=== PATIENT | male | born 1945 | race Caucasian/White ===

== ENCOUNTER 2017-12-24 10:00 | Outpatient (RCR) | payer MEDICARE, OTHER, SELFPAY ==
--- NOTE | 2017-12-11 16:01 | HP.PTEVAL ---
Patient's Visit Information RAY ALONSO is a 72 year old M referred to Physical Therapy by Shyam Rocha with a diagnosis of LBP. Date of Evaluation: 12/11/17 Physical Therapist: Yan Garduno PT, - Visit Plan Frequency: 2x /Week Duration: 4 Weeks Plan: Seated forward flex, core stab ex's in nuetral, LE strengthening, and HEP - Subjective Subjective: Pt reports a chronic Hx of LBP consisting of having a surgery to LB 20 years ago. Pt reports 4 weeks ago he was mowing on his hill when his LB started to hurt again. Pt reports he went to the chiropractor, which helped a litttle until he had his last adjustment, which resulted in severe pain and R LE radiculopathy. R LE radiculopathy extends to his R knee on the anterior region. No pain with sitting. Sleep diff secondary to the pain. Pt notes increased pain and radiculopathy with standing and walking. Pt reports he also feels it if he is showiering and raises his arms up in the air. 1/10 at rest, 8/10 pain at worst - Pain LBP Pain Intensity (Out of 10): 1 Pain Intensity Range: 8 - Objective Neuro: B LE Sensation is WNL to light touch. B patellar tendon reflex= 1/3. MMT: R hip flexion, knee flexion, and knee ext= 4-/5. All others are 5/5 throughout. ROM: Pt is severely limited with L/S extension at this time. No limitations with flexion. Repeated movements: SKTC/DKTC 10 sec holds x 3 ea, better - Goals Goal 1:: Decrease LBP x 50 percent to aid withsleep Goal Time Frame: 2-4 Weeks Goal 2:: Decrease the frequency and intensity of R LE radiculopathy to aid with ambulation Goal Time Frame: 2-4 Weeks Goal 3:: I with HEP Goal Time Frame: 2-4 Weeks - Rehabilitation Potential Physical Therapy Diagnosis: Pt has LBP, R LE radiculopathy, and sleep diff secondary to pain. Rehabilitation Potential: Good - Anticipated Interventions Patient/Client Instruction: Educate patient on: Condition, Plan of Care For the Purpose of:: To improve self management Therapeutic Exercise to Include: Strength training, Body mechanics, Postural training, Flexibilty training, Dynamic Lumbar Stabilization For the Purpose of:: To decrease pain, To increase ROM, To improve muscle performance and motor function IF ES: Yes For the Purpose of:: To decrease pain Thank you for the opportunity to evaluate your patient. For Medicare and Medicare HMO plans, please review the plan of care and approve it. It will need to be FAXED BACK to us at [phone] for Medicare purposes. Please let me know if there are questions or concerns regarding this plan of care. Physician Signature: Date:
--- NOTE | 2017-12-30 09:56 | HP.PT.NRP ---
HP - Discharge Summary (1) - Patient Information RAY ALONSO was seen in my office for initial evaluation on 12/11/17. The following Plan of Care was established for this patient: Initial Frequency: 2x /Week Initial Duration: 4 Weeks - Anticipated Interventions Patient/Client Instruction: Educate patient on: Condition, Plan of Care For the Purpose of:: To improve self management Therapeutic Exercise to Include: Strength training, Body mechanics, Postural training, Flexibilty training, Dynamic Lumbar Stabilization For the Purpose of:: To decrease pain, To increase ROM, To improve muscle performance and motor function IF ES: Yes For the Purpose of:: To decrease pain This patient was last seen in our office . Pertinent comments regarding their Physical therapy will appear below: Pt returns today noting he is painfree and has been for over 2 days now. Pt reports he is fixed and does not need any more PT at this time. Pt is I with HEP and has achieved goals. At this point I will be discontinuing this patient from physical therapy. I would be happy to see this patient again in the future if found appropriate by the physician. Thank you! Yan Garduno, PT,
== END 2017-12-24 19:00 | disposition home or self-care (01) ==
LOC: PT 10:00
PROVIDERS: Family Provider Family Medicine; PCP Family Medicine; Visit Provider Orthopaedic Surgery Orthopaedic Surgery of the Spine
DX: M51.14 Intervertebral disc disorders with radiculopathy, thoracic region (principal); M48.062 Spinal stenosis, lumbar region with neurogenic claudication
CPT/HCPCS: 97110; 97162

== ENCOUNTER 2018-02-04 10:42 | Emergency (ER) | payer MEDICARE, OTHER, SELFPAY ==
[2018-02-04 10:43] VITALS: BP 139/69; PULSE 84; RESP 18; TEMP 36.3; O2SAT 96; BMI 24.3
--- NOTE | 2018-02-04 10:51 | EKG12_ITS ---
Test Reason : CHEST PAIN Blood Pressure : / mmHG Vent. Rate : 082 BPM Atrial Rate : 082 BPM P-R Int : 166 ms QRS Dur : 128 ms QT Int : 376 ms P-R-T Axes : 044 -45 013 degrees QTc Int : 439 ms Normal sinus rhythm Right bundle branch block Left anterior fascicular block Bifascicular block Inferior infarct , age undetermined Abnormal ECG Confirmed by ES BAKER MD ([id number]), dictionary editor SLOAN WEAVER ([id number]) on 02/05/2018 10:09:24 AM Referred By: CARMELO Confirmed By:ES BAKER MD
[2018-02-04 10:55] LABS: Bedside Glucose 398 mg/dL (70-110)
[2018-02-04 11:00] VITALS: BP 141/82; PULSE 85; RESP 18; O2SAT 93
--- NOTE | 2018-02-04 11:16 | ED.VISSUMM ---
- ER Visit Summary Date of Service: 02/04/18 Chief Complaint: Elevated blood sugar History of Present Illness: The patient is a 72 M states his blood sugars are running high over the last 4-5 days. States he been as high as 500. He denies vomiting or diarrhea. He has been peeing more frequently but denies any dysuria or hematuria. He denies any fever. He denies any chest pain or shortness of breath to me. Physical Examination: Vital signs are stable afebrile. He is in no distress. HEENT exam unremarkable. Neck nontender. Lungs clear to auscultation bilaterally. Heart regular rhythm no murmur. Abdomen is soft and nontender. Normal bowel sounds. No peritoneal signs. Patient is moving all 4 extremities. They are neurovascularly intact. He has trace edema both lower extremities which he tells me is chronic. Neurologically is awake and alert with no focal motor deficits. Back exam is nontender. Test Results: CBC normal with a white count of 7. Hemoglobin 14. Electrolytes show a sodium 133. Glucose of 339. Normal gap of 8. Normal creatinine. UA normal. No signs of infection. No ketones. Troponin negative. Acetone negative. EKG sinus rhythm rate 82 with a bifascicular block. Emergency Department Course and Treatment: Patient with hyperglycemia with a history of diabetes. Patient was recently started on insulin. Screening labs to be obtained. He be treated with IV fluids. Patient doing well on repeat exam at 12:45 PM. He will be given subcu insulin 8 units. Discharge to home. Watch his blood sugars closely. Follow-up with his primary care physician for adjustment of his insulin dosages or in addition of an oral medication. Treatment Plan: Follow-up with his primary care physician. Disposition: Discharge Impression: Acute hyperglycemia with a history of insulin-dependent diabetes This note was generated with [employer] dictation software. It may contain incorrect words, spelling, and punctuation that were not noted in review of the chart prior to signing ED Disposition - Plan for ED Patient: Chief Complaint: Hyperglycemia Referrals: Gonsalo Saenz MD [Primary Care Provider] -
[2018-02-04] MEDS: 0.9% Normal Saline 1,000 ML 999 ML IV (11:36)
[2018-02-04 11:47] LABS: Absolute Lymphocyte Count 1.23 X10^3/ul (0.83-4.51); Absolute Neutrophil Count 5.4 X10^3/uL (2.0-7.7); Basophil# 0.04 X10^3/uL; Basophil% 0.5 % (0-1); Eosinophil# 0.18 X10^3/uL; Eosinophils% 2.5 % (0-5); Hematocrit 42.6 % (40-54); Hemoglobin 14.5 g/dl (13.0-16.5); Lymphocyte # 1.23 X10^3/ul (4.0); Lymphocyte % 16.8 % (19-41); Mean Corpuscular Hgb 31.5 pg (27.0-32.0); Mean Corpuscular Volume 92.6 fL (80-94); Mean Platelet Vol. 10.6 fl (6.2-12.0); Monocyte# 0.49 X10^3/uL; Monocyte% 6.7 % (0-10); Neutrophil # 5.35 X10^3/uL (2.7-7.7); Neutrophil % 73.2 % (47-70); Platelet Count 154 K/mm3 (150-450); RBC Distribution Width SD 42.9 fl (35.1-43.9); White Blood Count 7.3 K/mm3 (4.4-11.0)
[2018-02-04 11:59] LABS: POSITIVE COUNT NO; POSITIVE DIFFERENTIAL NO; POSITIVE MORPHOLOGY NO
[2018-02-04 12:00] LABS: Anion Gap 8 (5-15); BUN 18 mg/dL (7-18); BUN/Creat Ratio 19.2 RATIO (10-20); Chloride 98 mmol/L (98-107); Creatinine, Serum 0.94 mg/dL (0.70-1.30); EST Glomerular Filtration Rate 84 mL/min (>60); Est Glom Filt Rate - Afr Amer 102 mL/min (>60); Estimated Creatinine Clearance 67.71 ml/min; Glucose 339 mg/dL (74-106); Potassium 4.6 mmol/L (3.5-5.1); Sodium Level 133 mmol/L (136-145)
[2018-02-04 12:05] LABS: Bacteria 0 SEEN /hpf (None Seen); Mucous, Urine 0 SEEN /hpf (<or=2+); Squamous Epithelial Cells - UA 0 SEEN /hpf (0-5); White Blood Cells 0 SEEN /hpf (0-5)
[2018-02-04 12:09] LABS: Color, Urine Yellow (Yellow); Glucose, Dipstick 1000 mg/dl (Normal); Ketone-Dipstick Negative (Negative); Leukocyte Esterase-Dipstick Negative /ul (Negative); Nitrite-Dipstick Negative (Negative); Occult Blood-Urine 10 /ul (Negative); Protein-Dipstick 15 mg/dl (Negative); Specific Gravity, Urine 1.015 (1.002-1.030); Urine Bilirubin Dipstick Negative (Negative); Urine Clarity Clear (Clear); Urine Urobilinogen 1 mg/dl (Normal); Urine pH 6.5 (5.0 - 8.0)
[2018-02-04 12:18] LABS: Red Blood Cells-Urine 0-5 SEEN /hpf (0-5)
--- NOTE | 2018-02-04 12:48 | ED.DEP ---
ED Disposition - Plan for ED Patient: Disposition: Home or Assisted Living Chief Complaint: Hyperglycemia Instructions: ED Hyperglycemia Diabetic Referrals: Gonsalo Saenz MD [Primary Care Provider] - As soon as possible Additional Instructions: Continue taking your insulin as prescribed. Plenty of fluids. Log your blood sugars at minimum 3 times daily. And when you follow-up with your primary care physician show him those readings. He may or may not need to adjust your insulin dosages or add an oral medication.
[2018-02-04 12:59] VITALS: BP 139/82; PULSE 74; RESP 18; O2SAT 99
== END 2018-02-04 13:00 | disposition home or self-care (01) ==
PROVIDERS: Emergency Provider Emergency Medicine; Family Provider Family Medicine; PCP Family Medicine
DX: E11.65 Type 2 diabetes mellitus with hyperglycemia (principal); R60.0 Localized edema; I45.2 Bifascicular block; I25.10 Atherosclerotic heart disease of native coronary artery without angina pectoris; J44.9 Chronic obstructive pulmonary disease, unspecified; I48.91 Unspecified atrial fibrillation; Z95.5 Presence of coronary angioplasty implant and graft; Z79.82 Long term (current) use of aspirin; Z79.84 Long term (current) use of oral hypoglycemic drugs; Z79.4 Long term (current) use of insulin; Z79.01 Long term (current) use of anticoagulants; Z79.899 Other long term (current) drug therapy; Z72.0 Tobacco use
CPT/HCPCS: 80048; 81001; 82009; 82962; 84484; 85025; 93005; 96360; 99283; J7030

== ENCOUNTER 2019-02-22 09:53 | Inpatient (IN) | payer MEDICARE, OTHER, SELFPAY ==
[2019-02-22] VITALS (17 sets, daily range): BP systolic 124–154; BP diastolic 61–100; PULSE 69–93; RESP 16–26; TEMP 36.5–37.1; O2SAT 90–97; BMI 38.4; BMI 38.5; BMI 38.9
--- NOTE | 2019-02-22 10:16 | EKG12_ITS ---
Test Reason : CP Blood Pressure : / mmHG Vent. Rate : 076 BPM Atrial Rate : 074 BPM P-R Int : 000 ms QRS Dur : 142 ms QT Int : 410 ms P-R-T Axes : 000 -53 -09 degrees QTc Int : 461 ms Atrial fibrillation Right bundle branch block Left anterior fascicular block Bifascicular block Inferior infarct (cited on or before 04-FEB-2018), age undetermined Abnormal ECG Confirmed by JOSE KRAUSE, CATINA ([id number]), design editor TERESA FRANCO ([id number]) on 02/24/2019 11:02:42 AM Referred By: JACK Confirmed By:CATINA GARCIA MD
--- NOTE | 2019-02-22 10:16 | CT_ITS ---
STUDY: CT BRAIN WITHOUT CONTRAST REASON FOR EXAM: Male, 73 years old. CVA. RADIATION DOSAGE (If Supplied By Facility): CTDIvol = ( 60.81 ) mGy, DLP = ( 1135.50 ) mGycm TECHNIQUE: Transaxial CT imaging of the brain was performed without administration of intravenous contrast material. Individualized dose optimization techniques were used for this CT. COMPARISON: No relevant priors. FINDINGS: Normal soft tissue structures. Normal calvarium. There is moderate cerebral atrophy with widening of the extra-axial spaces and ventricular dilatation. Prominent CSF collection overlying the left frontal lobe suggestive of possible left subdural hygroma. There are areas of decreased attenuation within the white matter tracts of the supratentorial brain, consistent with microvascular disease changes. Normal basal ganglia and thalami. Normal brainstem. There is mild cerebellar atrophy. There is no intracranial hemorrhage. There are no findings of an acute ischemic infarction. Atherosclerotic calcification of the vertebral arteries and cavernous portions of the internal carotid arteries bilaterally. Partial opacification of the maxillary sinuses bilaterally. CT/Brain/Head without Contrast IMPRESSION: Chronic involutional changes of the brain more prominent overlying the left frontal lobe.. N.B. : The above information has been verbally conveyed by Cricket Mortensen to Delilah Grijalva on 02/22/2019 10:40:42 (ET). Electronically Signed: Cricket Mortensen, at 10:43 EST , Service support ,
--- NOTE | 2019-02-22 10:16 | RAD_ITS ---
STUDY: X-RAY CHEST REASON FOR EXAM: Male, 73 years old. Left arm pain. TECHNIQUE: Single AP portable view of the chest. COMPARISON: December 18, 2016. FINDINGS: Low lung volumes. Cardiomegaly. Pulmonary vascularity slightly prominent. Aorta calcified. Hazy airspace disease. Possible trace pleural effusions. Stable elevated right hemidiaphragm. Upper abdomen unremarkable. Osseous structures are slightly demineralized. No pneumothorax. RAD/Chest 1 View IMPRESSION: Diffuse hazy airspace disease with suspected trace effusions (mild pulmonary vascular congestion/edema) Cardiomegaly Stable elevated right hemidiaphragm Electronically Signed: Nguyễn Ho DO at 12:34 EST Tel , Service support ,
--- NOTE | 2019-02-22 10:20 | ED.VIS.GEN ---
History of Present Illness Chief Complaint: Chest Pain Informant: Patient Onset: Today Context: Gradual Onset Timing: Continuous Current Severity: Mild Maximum Severity: Mild Narrative: Patient is a 73-year-old male with history of atrial fibrillation on Eliquis as well as hypertension and COPD presenting initially with left arm pain. He states he woke up with left arm pain. He states it is a dull ache that is in his arm from a little bit above his elbow and down. There is no exacerbating or alleviating factors. While patient was driving over here he also notes that he was started and felt numb in his left hand. He states this is new. This was within the last hour before arrival. Patient states that he had a dentist appointment this day when he told his dentist about this they sent him to the primary care doctor. He then went to the primary care doctor who was worried he might of had a stroke so he sent him to the emergency room. The numbness did not start until after he saw his primary care doctor. Patient had an attempted cardiac ablation with his vice squad police officer down in [place] 1 week ago. He was off his Eliquis for 1 day. He is otherwise been on the Eliquis has not missed any doses. The ablation was unsuccessful. He did not have a MARANDA at that time. Patient denies any other complaints at this time. Past Medical History - Allergies and Home Meds Allergies/Adverse Reactions: Allergies No Known Allergies Allergy (Verified 02/04/18 10:44) Surgical History: angioplasty - 3 stents placed Smoking Status: Current every day smoker - Family History Maternal Family History: Family History (Last Updated 04/18/17 @ 13:23 by Charley Ardon) Mother Heart disease Dementia Father Heart disease Family History: Reports: Dementia Paternal Family History: Family History (Last Updated 04/18/17 @ 13:23 by Charley Ardon) Mother Heart disease Dementia Father Heart disease Family History: Reports: Heart Disease Review of Systems All systems negative except as indicated Musculoskeletal: Reports: - - Left arm pain Neurological: Reports: Parasthesia - Left hand Physical Exam Vital Signs/Narrative: Vital Signs Temp Pulse Resp BP Pulse Ox 02/22/19 09:55 97.7 F L 91 25 H 145/85 H 91 Inital Vital Signs reviewed: Yes General: Well nourished, Well developed, No Acute Distress Head: Normocephalic, Atraumatic Eyes: Perrl, EOMI ENT: Moist mucous membranes, No rhinorrhea Neck: Supple, Nontender Cardiovascular: Regular rate, No murmurs, Irregular Respiratory: No distress, Chest nontender, Wheezing - Mild, Diminished Abdomen: Soft, Nontender, Nondistended, Normal bowel sounds Back: Nontender, Normal Inspection Extremities: Nontender, Edema - 1+ Plus bilateral pitting pretibial edema Skin: Normal color, No rash Neurological: Alert, Oriented x3, Cranial nerves II-XII grossly intact, Normal Strength, - - Subjective paresthesias of the left hand and all dermatomes on initial exam. NIH equals 1 for unilateral paresthesia. Negative for: Left side facial droop, Right side facial droop Psychological: Normal affect, Normal Mood Diagnostic/Tx/Re-eval Chest X-Ray - ED: 1 View, Read by ED Physician, Read by Radiologist, No Acute Disease Clinical Impression(s) from Imaging Studies Brain CT 02/22/19 10:16 IMPRESSION: Chronic involutional changes of the brain more prominent overlying the left frontal lobe.. N.B. : The above information has been verbally conveyed by Cricket Mortensen to Delilah Grijalva on 02/22/2019 10:40:42 (ET). Electronically Signed: Cricket Mortensen, at 10:43 EST , Service support , ADDENDUM: 02/22/19 1050 IMPRESSION: Chronic involutional changes of the brain more prominent overlying the left frontal lobe.. N.B. : The above information has been verbally conveyed by Cricket Mortensen to Delilah Grijalva on 02/22/2019 10:40:42 (ET). Electronically Signed: Cricket Mortensen, at 10:43 EST , Service support , Chest X-Ray 02/22/19 10:16 IMPRESSION: Diffuse hazy airspace disease with suspected trace effusions (mild pulmonary vascular congestion/edema) Cardiomegaly Stable elevated right hemidiaphragm Electronically Signed: Nguyễn Ho DO at 12:34 EST Tel , Service support , Head/Neck CTA 02/22/19 11:00 IMPRESSION: Calcific plaques at the origins of the right and left internal carotid artery causing approximately 50-69% stenosis. Electronically Signed: Cricket Festus, at 12:28 EST , Service support , Laboratory Data 02/22/19 02/22/19 02/22/19 10:03 10:03 10:03 WBC 8.6 RBC 4.98 Hgb 15.1 Hct 45.8 MCV 92.0 MCH 30.3 MCHC 33.0 RDW Std Deviation 47.0 H RDW Coeff of Jc 13.8 Plt Count 156 MPV 10.1 Immature Gran % (Auto) 0.500 Neut % (Auto) 72.0 H Lymph % (Auto) 16.5 L [place] % (Auto) 6.7 Eos % (Auto) 3.3 Baso % (Auto) 1.0 Absolute Neuts (auto) 6.2 Absolute Lymphs (auto) 1.42 Nucleated RBC % 0 PT 15.3 H INR 1.2 APTT 35.2 Sodium 138 Potassium 3.9 Chloride 103 Carbon Dioxide 30.0 Anion Gap 5 BUN 18 Creatinine 0.94 Estim Creat Clear Calc 71.19 Est GFR (MDRD) Af Amer 101 Est GFR (MDRD) Non-Af 84 BUN/Creatinine Ratio 19.3 Glucose 205 H Calcium 9.0 Troponin I < 0.015 POC Glucose 02/22/19 10:18 WBC RBC Hgb Hct MCV MCH MCHC RDW Std Deviation RDW Coeff of Jc Plt Count MPV Immature Gran % (Auto) Neut % (Auto) Lymph % (Auto) Trinity % (Auto) Eos % (Auto) Baso % (Auto) Absolute Neuts (auto) Absolute Lymphs (auto) Nucleated RBC % PT INR APTT Sodium Potassium Chloride Carbon Dioxide Anion Gap BUN Creatinine Estim Creat Clear Calc Est GFR (MDRD) Af Amer Est GFR (MDRD) Non-Af BUN/Creatinine Ratio Glucose Calcium Troponin I POC Glucose 189 H - Rhythm Strip Rhythm Strip: A-fib Rate: 74 Ectopy: None - EKG Initial EKG Interpretation: Atrial Fibrillation, - - Atrial fibrillation rate of 76 Right bundle branch block and left anterior fascicular block Normal intervals Left axis deviation Normal ST segments No significant EKG changes compared to earlier today Prior: Unchanged - Medical Decision Making Patient initially was instructed to come to the emergency room for left arm pain. On his way to the ER he developed paresthesias in his left hand. Patient has an NIH of 1. He had an attempt for cardioversion 1 week ago in [place] with his vice squad police officer. Patient was off his Eliquis for 1 day. Is unknown whether he has a mural thrombus. While patient is in the ER a stroke alert was called and patient does have progression of his symptoms to include paresthesias of his left lower leg as well. His NH remains one. Patient is evaluated by a tele-stroke at [facility]. Neurologist believes that patient did have a stroke when it is likely not embolic. He is not a TPA candidate based on his low NIH and the fact that he is on Eliquis. Patient will be admitted for MRI and further neurologic evaluation here. He does not require transfer and patient is comfortable staying here. CTA of the head and neck is obtained which does not show any large embolic stroke. Discussed the case with Dr. Gonsales who is agreeable with this plan. Patient stable for PCU at time of disposition. ED Disposition - Plan for ED Patient: Disposition: [facility] Care [facility] Diagnosis: Paresthesia of left arm and leg
[2019-02-22 10:28] LABS: Absolute Lymphocyte Count 1.42 X10^3/uL (0.83-4.51); Absolute Neutrophil Count 6.2 X10^3/uL (2.0-7.7); Basophil# 0.09 X10^3/uL; Eosinophil# 0.28 X10^3/uL; Eosinophils% 3.3 % (0-5); Hematocrit 45.8 % (40-54); Hemoglobin 15.1 g/dL (13.0-16.5); Lymphocyte # 1.42 X10^3/ul (4.0); Lymphocyte % 16.5 % (19-41); Mean Corpuscular Hgb 30.3 pg (27.0-32.0); Mean Platelet Vol. 10.1 fl (6.2-12.0); Monocyte# 0.58 X10^3/uL; Monocyte% 6.7 % (0-10); NRBC Flagged by Analyzer 0 % (0-5); Platelet Count 156 K/mm3 (150-450); RBC Distribution Width CV 13.8 % (11.6-14.6); Red Blood Count 4.98 M/mm3 (4.6-6.2); White Blood Count 8.6 K/mm3 (4.4-11.0)
--- NOTE | 2019-02-22 10:28 | NURSING ---
FACESHEET FAXED TO [facility]
[2019-02-22 10:33] LABS: International Normalized Ratio 1.2; Prothrombin Time (Protime)PT. 15.3 SECONDS (11.7-14.9)
[2019-02-22 10:34] LABS: Partial Thromboplast Time 35.2 Seconds (24.1-36.2)
--- NOTE | 2019-02-22 10:35 | CM.ED ---
SOCIAL WORK RESPONDED TO STROKE ALERT. PRESENT IN ROOM. PATIENT IN CT. EXPLAINED THIS WORKER'S ROLE. SUPPORT AND EDUCATION PROVIDED TO . Nohemy MAYNARD, PROCESS MAINTENANCE TECHNICIAN, GROOVER AND STRIPER OPERATOR.
[2019-02-22 10:36] LABS: Bedside Glucose 189 mg/dL (70-110)
[2019-02-22 10:38] LABS: Anion Gap 5 (5-15); BUN 18 mg/dL (7-18); BUN/Creat Ratio 19.3 RATIO (10-20); Chloride 103 mmol/L (98-107); Creatinine, Serum 0.94 mg/dL (0.70-1.30); EST Glomerular Filtration Rate 84 mL/min (>60); Est Glom Filt Rate - Afr Amer 101 mL/min (>60); Estimated Creatinine Clearance 71.19 ml/min; Glucose 205 mg/dL (74-106); Potassium 3.9 mmol/L (3.5-5.1); Sodium Level 138 mmol/L (136-145)
--- NOTE | 2019-02-22 10:39 | NURSING ---
1016 STROKE ALERT CALLED.
--- NOTE | 2019-02-22 11:00 | CT_ITS ---
STUDY: CTA HEAD AND NECK WITH CONTRAST REASON FOR EXAM: Male, 73 years old. Left paresthesia. RADIATION DOSAGE (If Supplied By Facility): CTDIvol = ( 51.90 ) mGy, DLP = ( 885.59 ) mGycm TECHNIQUE: CT angiography was performed with a multi-detector CT scanner. Data acquisition was obtained from the skull base through the vertex following intravenous administration of IV Isovue 370 100. MIP images were reconstructed from the axial data set. Post-processing of the angiographic images was performed, with multiplanar reformation and 3D reconstruction. Individualized dose optimization techniques were used for this CT. COMPARISON: No relevant priors. FINDINGS: Normal bilateral petrous carotid arteries. There is calcified plaque formation of the right cavernous carotid artery, without a cross-sectional luminal stenosis. There is calcified plaque formation of the left cavernous carotid artery, without a cross-sectional luminal stenosis. Normal right A1 segments of the anterior cerebral artery. Normal left A1 segments of the anterior cerebral artery. Normal intact anterior communicating artery (ACOM). Normal bilateral A2 segments of the anterior cerebral arteries. Normal right M1 and M2 segments of the middle cerebral arteries, with a normal M1 bifurcation. Normal left M1 and M2 segments of the middle cerebral arteries, with a normal M1 bifurcation. There is a persistent origin of the right posterior cerebral artery with absence of the posterior communicating artery (PCOM). Normal left posterior communicating artery (PCOM). Normal bilateral vertebral arteries. Normal basilar artery with a normal basilar bifurcation. The visualized bilateral superior cerebellar (SCA) arteries are normal. Normal bilateral P1, P2 and visualized P3 segments of the posterior cerebral arteries. There is no demonstrated aneurysm of the [place]. There is no demonstrated abnormality of the visualized brain. AORTIC ARCH: There is atherosclerotic calcific plaque formation of the aortic arch and great vessels arising from the aortic arch, without a hemodynamically significant stenosis. There is a bovine origin of the great vessels with a common origin of the brachiocephalic and left common carotid artery. Normal origin of the left subclavian artery. Normal origins of the brachiocephalic, left common carotid, and left subclavian arteries. RIGHT CAROTID ARTERIES: Normal right common carotid artery (CCA). Normal right common carotid bulb. There is moderate atherosclerotic plaque formation of the origin of the right internal carotid artery with an estimated stenosis of 50-69% stenosis. Normal visualized cervical portion of the right internal carotid artery. Normal origin of the right external carotid artery (ECA). LEFT CAROTID ARTERIES: Normal left common carotid artery (CCA). Normal left common carotid bulb. There is moderate atherosclerotic plaque formation of the origin of the left internal carotid artery with an estimated stenosis of 50-69% stenosis. Normal visualized cervical portion of the left internal carotid artery. Normal origin of the left external carotid artery (ECA). VERTEBRAL ARTERIES: There is enhancement within the bilateral vertebral arteries with a small right vertebral artery, and a dominant left vertebral artery. CT/CTA Head AND Neck W/ Contrast IMPRESSION: Calcific plaques at the origins of the right and left internal carotid artery causing approximately 50-69% stenosis. Electronically Signed: Cricket Mortensen, at 12:28 EST , Service support ,
--- NOTE | 2019-02-22 11:09 | CHAPLAIN ---
Type of Pastoral Visit ___ Initial Visit ___ Follow-up Visit ___ On-call Visit ___ General Patient Visit ___ Spiritual Assessment ___ Family Conference ___ Bereavement _x__ Rapid Response ___ Code Blue ___ Other (describe below) Pastoral Care Referral From ___ Patient ___ Family ___ Nurse ___ Physician ___ Overnight Caregiver ___ Commercial Credit Portfolio Manager _x__ Other (describe below) Sacrament/Intervention ___ Active listening ___ Anointing ___ Taoism ___ Bereavement ___ Communion ___ Galilea exploration ___ ___ Life review ___ Prayer ___ Reconciliation ___ Sacrament of Sick _x__ Supportive presence ___ Wedding ___ Other (describe below) Pastoral Comments responded to Stroke Alert; pt was talking and saying he was doing ok; spouse and SW were with pt in room; no other needs evident at this time
[2019-02-22] MEDS: Aspirin 325 MG Tablet PO (11:51)
--- NOTE | 2019-02-22 13:09 | CDU_ITS ---
Reason For Study: CVA Rt. Velocities/BP Lt. Velocities/BP Prox CCA 86/12 cm/sec. Prox CCA 82/31 cm/sec. Mid CCA 80/17 cm/sec. Mid CCA 81/20 cm/sec. Dist CCA 57/16 cm/sec. Dist CCA 62/18 cm/sec. Prox ICA 63/24 cm/sec. Prox ICA 32/12 cm/sec. Mid ICA 65/19 cm/sec. Mid ICA 67/15 cm/sec. Dist ICA 61/20 cm/sec. Dist ICA 40/9 cm/sec. Rt. ICA/CCA = 0.8. Lt. ICA/CCA = 0.8. Prox ECA 80/8 cm/sec. Prox ECA 107/13 cm/sec. Unable to visualize Rt Vert. Lt. Vert. 44/10 cm/sec. Right Extracranial There is heterogeneous, irregular atherosclerotic plaque noted in the right common carotid artery. There is heterogeneous, irregular atherosclerotic plaque noted in the right internal carotid artery. There is heterogeneous, irregular atherosclerotic plaque noted in the right external carotid artery. The right vertebral artery could not be visualized. Left Extracranial There is heterogeneous, irregular atherosclerotic plaque noted in the left common carotid artery. There is heterogeneous, irregular atherosclerotic plaque noted in the left internal carotid artery. There is heterogeneous, irregular atherosclerotic plaque noted in the left external carotid artery. Antegrade flow is noted in the left vertebral artery. Procedure Carotid Duplex 18026. The study was technically difficult. Exam performed portable in patient room. Interpretation Summary Mild (<50%) stenosis right extracranial internal carotid. Mild (<50%) stenosis left extracranial internal carotid. The right vertebral artery was not visualized. Flow within the left verterbral artery is antegrade. Ordering Physician: Mary Calderón Referring Physician: Gonsalo Saenz Performed By: eHena Ny, TIMMY, RVT
--- NOTE | 2019-02-22 13:46 | ECHOD_ITS ---
Reason For Study: TIA/CVA Procedure This was a 2D Doppler, Color Flow transthoracic echocardiogram. Contrast injection was performed. Echo done with patient sitting upright due to SOB. Exam performed portable in patient room. Left Ventricle Normal LV size. Moderate concentric left ventricular hypertrophy. Left ventricular systolic function is normal. The estimated ejection fraction is 55 %. Stage 3 diastolic dysfunction. No regional wall motion abnormalities noted. Right Ventricle Mildly dilated right ventricle. Mild global right ventricular systolic dysfunction. Atria The left atrium is mildly enlarged. The right atrium is mildly enlarged. Bubble contrast study negative for right to left interatrial shunt. Mitral Valve Normal mitral valve. Tricuspid Valve Normal tricuspid valve. Aortic Valve Normal aortic valve. Pulmonic Valve Normal pulmonic valve. Great Vessels Normal aortic root. The pulmonary artery is normal size. Normal inferior vena cava. Pericardium/Pleural No pericardial effusion. Medication Performed a rapid injection of agitated mix of 9 cc saline and 1cc air to assess for atrial septal defect. MMode/2D Measurements & Calculations LVIDd: 4.3 cm IVSd: 1.7 cm Ao root diam: 3.5 cm LVIDs: 3.0 cm LVPWd: 1.6 cm RVDd: 4.1 cm FS: 29.2 % LAV(MOD-bp): 74.8 ml LA A4 area: 23.2 cm2 RA A4 area: 21.4 cm2 LAV(MOD-bp) Indexed: 31.7 ml/m2 LAV(MOD-sp2): 69.3 ml LAV(MOD-sp4): 74.9 ml Time Measurements MV dec time: 0.26 sec Doppler Measurements & Calculations MV E max marvin: 118.4 cm/sec Lat Peak E' Marvin: 10.3 cm/sec Med Peak E' Marvin: 9.4 cm/sec MV A max marvin: 26.5 cm/sec E/E' lat: 11.5 E/E' med: 12.7 MV E/A: 4.5 MV V2 max: 132.3 cm/sec MV P1/2t max marvin: 132.9 cm/sec Ao V2 max: 172.3 cm/sec MV max P.0 mmHg MV P1/2t: 87.5 msec Ao max P.9 mmHg MV V2 mean: 66.6 cm/sec MV dec slope: 445.1 cm/sec2 MV mean P.3 mmHg MV V2 VTI: 31.4 cm MVA(P1/2t): 2.5 cm2 LV V1 max: 68.9 cm/sec PA V2 max: 62.1 cm/sec TR max marvin: 302.8 cm/sec LV V1 max P.9 mmHg TR max P.7 mmHg Interpretation Summary Normal LV size. Moderate concentric left ventricular hypertrophy. Left ventricular systolic function is normal. The estimated ejection fraction is 55 %. Stage 3 diastolic dysfunction. Mildly dilated right ventricle. Mild global right ventricular systolic dysfunction. Bubble contrast study negative for right to left interatrial shunt. Ordering Physician: Mary Calderón Referring Physician: KENDALL CANTRELL Performed By: Alan Newell RCS
--- NOTE | 2019-02-22 14:17 | MRI_ITS ---
STUDY: MRI BRAIN WITHOUT CONTRAST REASON FOR EXAM: Male, 73 years old. CVA TECHNIQUE: Standardized multiplanar fat and water weighted pulse sequences were obtained. COMPARISON: CT of the brain February 22, 2019 FINDINGS: There is prominence of the subarachnoid spaces in left frontal lobe in association with large fluid density most likely representing atypical arachnoid cyst. Minor periventricular white matter ischemic changes without mass effect or restricted diffusion. Normal bilateral basal ganglia. Normal thalami. There is no extra-axial fluid accumulation. Normal flow voids within the major intracranial circulation suggesting patency by spin echo criteria. Normal sella turcica, pituitary gland, infundibular stalk, optic chiasm and hypothalamus. Normal tectal plate and pineal gland. Normal midbrain, rodrigo and medulla. Normal cerebellum. Normal basal cisterns. Normal bilateral temporal bones. Normal bilateral internal auditory canals. Postsurgical changes of the orbits.. Large mucous retention cyst in right maxillary sinus and prominent mucosal thickening left maxillary sinus. Minor mucosal thickening of the ethmoid sinuses.. Post surgical changes of the orbits. Normal visualized soft tissue structures. Normal visualized upper cervical spine. MRI/Brain without Contrast IMPRESSION: Minor periventricular white matter ischemic changes without evidence for acute infarct Other findings as above Electronically Signed: Johnnie Gomes MD at 18:02 EST , Service support ,
[2019-02-22 14:18] LABS: AST(SGOT) 33 U/L (15-37); Alanine Aminotransfer ALT/SGPT 39 U/L (16-61); Albumin, Serum 3.2 g/dL (3.2-5.0); Alkaline Phosphatase 114 U/L (45-117); Bilirubin, Direct 0.11 mg/dL (0.00-0.30); Globulin 4.3 g/dL (2.2-4.2); Magnesium 1.7 mg/dL (1.6-2.6); Protein, Total 7.5 g/dL (6.4-8.2); Thyroid Stim Hormone (TSH) 1.24 uIU/mL (0.358-3.74)
--- NOTE | 2019-02-22 14:29 | PCM.HP.STD ---
Problem List (1) Paresthesia of left arm and leg Status: Acute (2) TIA (transient ischemic attack) Status: Suspected (3) History of mandibular surgery Status: Resolved (4) History of angioplasty Status: Chronic (5) History of back surgery Status: Chronic (6) Tobacco abuse Status: Chronic (7) Hypersomnia Status: Chronic (8) Acute respiratory failure with hypoxia Status: Resolved (9) Pulmonary hypertension, mild Status: Chronic (10) COPD (chronic obstructive pulmonary disease) Status: Chronic (11) Nephrolithiasis Status: Chronic (12) Diabetes Status: Chronic Qualifiers: Diabetes mellitus type: type 2 Diabetes mellitus supervisor intermediates insulin use: with custodial use Diabetes mellitus complication status: with circulatory complication (13) CAD (coronary artery disease) Status: Chronic Qualifiers: Coronary Disease-Associated Artery/Lesion type: [place] artery Associated angina: without angina (14) ELIZABETH (acute kidney injury) Status: Resolved (15) Hypokalemia Status: Resolved (16) Hyponatremia Status: Resolved (17) HTN (hypertension) Status: Chronic (18) Tension headache Status: Chronic (19) Carotid stenosis, bilateral Status: Chronic Comment: Less than 50% bilaterally (20) Venous insufficiency of both lower extremities Status: Chronic (21) Morbid obesity Status: Chronic (22) Left ventricular hypertrophy Status: Chronic (23) Grade III diastolic dysfunction Status: Chronic (24) Right ventricular dilation Status: Chronic History of Present Illness Date of Admission: 02/22/19 Chief Complaint: right side numbness The patient is a 73 year old M with a PMH of HTN, CAD, COPD, tobacco dependence, DM II, morbid obesity and atrial fibrillation on chronic anticoagulation with Eliquis who presented to the emergency department at [facility] on 02/22/2019 complaining of pain associated with numbness in the left forearm below the elbow and mild dysesthesia in the left lateral calf. He awoke this morning initially with pain in the left forearm distal to the elbow. He later went on to develop numbness in his left forearm and hand and stated all 5 fingers were numb. He has awoken in the past with numbness in his hands but this rarely happens now. He denied arm or leg weakness and also denied slurred speech, trouble with word finding, sudden change in vision or disequilibrium. He was told by his primary care physician to come to the emergency department and a stroke alert was called. A noncontrasted CT brain was negative for acute findings and the NIH in the emergency department was 1. [facility] tele-stroke was consulted and TPA was not recommended. Vital signs at presentation to the emergency department were temperature 97.7, pulse rate 91, blood pressure 145/85, respiratory rate 25 and he was 91% saturated on room air. CBC was unremarkable. CMP was remarkable for an elevated glucose at 205 and a hemoglobin A1c of 8.6. Troponin was less than 0.015. TSH was normal. EKG showed atrial fibrillation with a right bundle branch block and a left anterior hemiblock. There were nonspecific ST and T wave changes and the EKG was overall unchanged from an EKG done in 2017. The chest x-ray was an AP chest and was a very poor study done in expiration. No definitive diagnoses can be made about the CXR due to the poor quality. He was given aspirin in the emergency department and admitted to a monitored bed on PCU with TIA vs ischemic CVA. [] PFTs that were done in 2017 showed a partially reversible severe mixed ventilatory defect with a symmetric reduction in diffusion capacity. He has oxygen at home which he uses PRN. He sleeps poorly at night and his family states he sleeps best sitting up in a chair with his oxygen on during the night. He has venous insufficiency and is prescribed Lasix 120 mg daily. He often does not take this medication if he is going out because he will spend the entire morning in the BR. He gets up about 3 times at night to urinate. He does not use compression and also does not elevate his legs when sitting in a chair. He continues to smoke despite CAD, PTCA/LINDSAY/COPD and SOB. Past Medical History Past Medical History (Chronic Problems): Chronic Problems (Last Reviewed 04/18/17 @ 13:21 by Charley Ardon) Carotid stenosis, bilateral (Chronic) Less than 50% bilaterally Venous insufficiency of both lower extremities (Chronic) Morbid obesity (Chronic) Left ventricular hypertrophy (Chronic) Grade III diastolic dysfunction (Chronic) Right ventricular dilation (Chronic) History of angioplasty (Chronic) History of back surgery (Chronic) Tobacco abuse (Chronic) Hypersomnia (Chronic) Pulmonary hypertension, mild (Chronic) COPD (chronic obstructive pulmonary disease) (Chronic) Nephrolithiasis (Chronic) Diabetes (Chronic) CAD (coronary artery disease) (Chronic) HTN (hypertension) (Chronic) Tension headache (Chronic) Medical History: Medical History (Last Reviewed 02/22/19 @ 17:53 by Mary Calderón DO) Tobacco abuse (Chronic) Z72.0 Hypersomnia (Chronic) G47.10 Pulmonary hypertension, mild (Chronic) I27.2 COPD (chronic obstructive pulmonary disease) (Chronic) J44.9 Nephrolithiasis (Chronic) Diabetes (Chronic) E11.9 CAD (coronary artery disease) (Chronic) I25.10 HTN (hypertension) (Chronic) I10 Tension headache (Chronic) G44.209 ELIZABETH (acute kidney injury) (Resolved) N17.9 Acute respiratory failure with hypoxia (Resolved) J96.01 Hypokalemia (Resolved) E87.6 Hyponatremia (Resolved) E87.1 Allergies No Known Allergies Allergy (Verified 02/04/18 10:44) Home Medications: Ambulatory Orders Medication Instructions Recorded Aspirin [Aspirin, Baby] 81 mg PO DAILY@0800 08/30/15 Rosuvastatin Calcium [Crestor] 40 mg PO DAILY 08/30/15 Albuterol Aerosols [Ventolin 2.5 mg INHALATION Q4H PRN PRN 10/15/15 Aerosols] Lansoprazole [Prevacid] 30 mg PO DAILY 12/18/16 fluticasone furoate 100 1 inh INHALATION Q24H 04/18/17 mcg-vilanterol 25 mcg/dose inhalation powder nitroglycerin 0.4 mg sublingual 0.4 mg SUBLINGUAL Q5-15M PRN 04/18/17 tablet Apixaban [Eliquis] 5 mg PO BID 02/04/18 Amiodarone HCl 200 mg PO DAILY 02/22/19 Furosemide [Lasix] 120 mg PO DAILY PRN 02/22/19 Glipizide [Glipizide ER] 10 mg PO DAILY 02/22/19 Insulin Degludec [Tresiba 30 units SQ DAILY 02/22/19 Flextouch U-200] Insulin Lispro [Humalog KwikPen] 4 units SQ DAILY PRN 02/22/19 Metoprolol Succinate 25 mg PO DAILY 02/22/19 Potassium Chloride 10 meq PO DAILY PRN 02/22/19 Sitagliptin Phos/Metformin HCl 1 tab PO BID 02/22/19 [Janumet 50-1,000 mg Tablet] Surgical History: Surgical History (Last Reviewed 02/22/19 @ 17:54 by Mary Calderón DO) History of angioplasty (Chronic) Z98.62 History of back surgery (Chronic) Z98.890 History of mandibular surgery (Resolved) Z98.890 Surgical History: angioplasty - 3 stents placed Psychiatric History: No pertinent psych hx Lives: Spouse/ Significant Other Smoking Status: Current every day smoker Tobacco Use: Cigarettes Alcohol: Occasional Drugs: None - *Family History Maternal Family History: Family History (Last Reviewed 02/22/19 @ 17:59 by Mary Calderón DO) Mother Heart disease Dementia Father Heart disease History Items: Dementia Paternal Family History: Family History (Last Reviewed 02/22/19 @ 17:59 by Mary Calderón DO) Mother Heart disease Dementia Father Heart disease History Items: Heart Disease Review of Systems Constitutional: Denies: Anorexia, Chills, Fever, Weakness, Weight Change Eyes: Denies: Blurred vision, Vision Change HEENT: Reports: Head Aches - he had a SEYMOUR today when he was sent to the hospital from his PCP's office. It was left sided.. Denies: Difficulty Swallowing, Dysphasia, Hearing Changes, Sinus Congestion, Sinus Drainage, Sore Throat Cardiovascular: Reports: Edema. Denies: Chest Pain, Light Headedness, Orthopnea, Palpitations, Paroxysmal Noc. Dyspnea Respiratory: Reports: Shortness of breath upon exertion. Denies: Cough, Shortness of breath at rest, Sputum production, Wheezing Gastrointestinal: Denies: Abdominal Pain, Constipation, Nausea, Vomiting Genitourinary: Reports: Nocturia. Denies: Dysuria Musculoskeletal: Reports: Arm Pain - left forearm acutely today....preceded the LUE numbness. Denies: Joint Pain, Joint Tenderness Skin: Denies: Jaundice, Rash, Wounds Neurological: Reports: Numbness - LUE >LLE. Denies: Balance problems, Blurred vision, Double vision, Slurred speech, Difficulty swallowing, Focal weakness, Tingling, Tremor, Seizures Psychiatric: Denies: Anxiety, Depression, Homicidal Ideations, Suicidal Ideations Endocrine: Denies: Change in Body Habitus Hematologic/ Lymphatic: Denies: Easy Bruising, Easy Bleeding, Hx of blood clot VTE Information - Inpt Only VTE Present on Admission: No VTE Mechan Device Prophylaxis: SCD's, Knee High PETER Hose VTE Pharm Prophylaxis ordered?: No Reason prophylaxis not ordered:: Medical Contraindication - Patient is fully anticoagulated on Eliquis 5 mg p.o. twice daily. Patient Problems: Active and Suspected Problems (Last Reviewed 04/18/17 @ 13:21 by Charley Ardon) Paresthesia of left arm and leg (Acute) TIA (transient ischemic attack) (Suspected) - Physical Exam Vitals/I&O's: Vital Signs Temp Pulse Resp BP Pulse Ox 98.3 F 69 20 H 131/72 H 93 02/22/19 14:00 02/22/19 14:00 02/22/19 14:00 02/22/19 14:00 02/22/19 14:00 Oxygen Delivery Method Room Air Weight: 268 lb Body Mass Index (BMI) 38.4 Finger Stick Blood Glucose 189 General: Alert, Oriented x3, Cooperative, No apparent distress, Well developed, Well nourished HEENT: Atraumatic, PERRLA, EOMI, Normocephalic Oral: No Gingival or Mucosal Lesions/ Ulcerations, Dry Mucosa Neck: Supple, No JVD, Negative Carotid Bruits, Trachea Midline Lungs: Clear to auscultation, No rhonchi, No wheeze, No rales, Diminished, - - There is symmetric chest expansion and he has no tachypnea, no conversational dyspnea and no accessory muscle use. Cardiovascular: Normal S1, Normal S2, Irregular Rate - secured entrance monitor and EKG show atrial fibrillation with controlled ventricular response, Murmur - He has a 1/6 to 2/6 systolic ejection murmur heard best at the second right intercostal space. Heart sounds over the left precordium are diminished, more likely than not secondary to body habitus and COPD, No rub noted, No Gallop Abdomen: Bowel Sounds Present, Soft, Non Tender, Non-Distended, Obese Extremities: No clubbing, No cyanosis, No edema, Capillary Refill Less than 3 Seconds, No Calf Tenderness, Edema Skin: No rashes, No breakdown Musculoskeletal: No Tenderness to Palpation of Joints or Extremities Neurological: Cranial nerves II-XII grossly intact, Neuro grossly intact - with the exception of subjective decreased sensation of the LUE and the Left laterl calf Psych/Mental Status: Normal Affect, Appropriate Laboratory Results 02/22/19 10:03: WBC 8.6, RBC 4.98, Hgb 15.1, Hct 45.8, MCV 92.0, MCH 30.3, MCHC 33.0, RDW Std Deviation 47.0 H, RDW Coeff of Jc 13.8, Plt Count 156, MPV 10.1, Immature Gran % (Auto) 0.500, Neut % (Auto) 72.0 H, Lymph % (Auto) 16.5 L, Franklin % (Auto) 6.7, Eos % (Auto) 3.3, Baso % (Auto) 1.0, Absolute Neuts (auto) 6.2, Absolute Lymphs (auto) 1.42, Nucleated RBC % 0 02/22/19 10:03: PT 15.3 H, INR 1.2, APTT 35.2 02/22/19 10:03: Sodium 138, Potassium 3.9, Chloride 103, Carbon Dioxide 30.0, Anion Gap 5, BUN 18, Creatinine 0.94, Estim Creat Clear Calc 71.19, Est GFR (MDRD) Af Amer 101, Est GFR (MDRD) Non-Af 84, BUN/Creatinine Ratio 19.3, Glucose 205 H, Calcium 9.0, Troponin I < 0.015 02/22/19 10:03: Magnesium 1.7, Total Bilirubin 0.30, Direct Bilirubin 0.11, AST 33, ALT 39, Alkaline Phosphatase 114, Total Protein 7.5, Albumin 3.2, Globulin 4.3 H, TSH 1.24 02/22/19 10:18: POC Glucose 189 H 02/22/19 14:10: Troponin I Pending Current Medications Acetaminophen (Tylenol) 650 mg PO Q4H PRN PRN PRN Reason: Headache/Temp>99.6F Albuterol Sulfate (Ventolin Aerosols) 2.5 mg INHALATION Q2H PRN PRN PRN Reason: SOB/Wheezing Albuterol Sulfate (Ventolin Aerosols) 2.5 mg INHALATION Q6HWA.RT LATOYA Apixaban (Eliquis) 5 mg PO BID LATOYA Aspirin (Aspirin, Baby) 81 mg PO DAILY@0800 LATOYA Atorvastatin Calcium (Lipitor) 80 mg PO QHS LATOYA Budesonide (Pulmicort Aerosol) 0.5 mg INHALATION Q12H.RT LATOYA Dextrose (D50w Syringe) 0 gm IV X1 PRN; Protocol PRN Reason: Hypoglycemia Glucagon () 1 mg IM .X1 PRN PRN Reason: Hypoglycemia Sodium Chloride () 1,000 mls @ 100 mls/hr IV .Q10H LATOYA Sodium Chloride () 1,000 mls @ 500 mls/hr IV .Q2H ONE Stop: 02/22/19 15:45 Nitroglycerin (Nitrostat) 0.4 mg SUBLINGUAL Q5M PRN PRN Reason: ANGINA Ondansetron HCl (Zofran) 4 mg IV Q8H PRN PRN PRN Reason: NAUSEA/VOMITING Pantoprazole Sodium (Protonix) 40 mg PO DAILY [facility] Assessment/Plan All Active Problems (Last Reviewed 04/18/17 @ 13:21 by Charley Ardon) Paresthesia of left arm and leg (Acute) ELIZABETH (acute kidney injury) (Resolved) Acute respiratory failure with hypoxia (Resolved) History of mandibular surgery (Resolved) Hypokalemia (Resolved) Hyponatremia (Resolved) Impressions 1. TIA vs R cerebral ischemic CVA - Admitted to a monitored bed on PCU Echocardiogram ordered Carotid ultrasound ordered to better evaluate degree of stenosis in the extracranial carotids Consult ordered with Dr. Mondragon Ischemic stroke protocol initiated 2. Chronic fibrillation - Follows with Dr. Mendez in [place] failed cardioversion 2 weeks ago Has an appt to be evaluated for ablation. rate controlled. continue home medications. 3. CAD [place] arteries with hx of PTCA/LINDSAY in the past Denies CP and has not had to use NTG recently at home Serial CE's ordered 4. Tobacco dependence despite CAD, PTCA and now a possible CVA vs TIA smoking cessation counselling given Pt agreeable to a Nicotine patch while in the hospital 5. DM II - only checks his BS once a day in the AM......does not know his last HGBA1C. Does not really follow a diet continue regular home medications check a HGBA1C 6. Morbid obesity - wt loss advised 7. Venous insufficiency - multifactorial and due to obesity and probably mild R heart failure with diastolic dysfunction stage III Encouraged wt loss, salt restriction, compressions and elevation Eucerin for moisturizing at HS 8. Hypertension/system somnolence/mild pulmonary hypertension/COPD/nephrolithiasis/tension headaches/left ventricular hypertrophy/diastolic dysfunction stage III - continue home medications Continue Eliquis Admitted to PCU Dr. Mondragon consulted MRI of the brain. CTA of the head and neck with BL Internal Carotid stenosis estimated at 50 to 69% - Carotid US ordered ECHo ordered MRI of the brain 1999 calorie cardiac diet Code Visit Inpatient E&M: 38172 Init Hosp L3
--- NOTE | 2019-02-22 14:44 | CON.PCM_ITS ---
Problem List (1) TIA (transient ischemic attack) Status: Acute Reason for Consult Date of Consultation: 02/22/19 Reason for Consultation: Probable TIA History of Present Illness: The patient is a 73 year old M HTN, HLD, DM, A. fib on Eliquis, CAD status post stents, COPD, tobacco abuse, morbid obesity admitted with left-sided paresthesias and numbness. Per patient he woke up this morning 02/22/2019 and had left arm pain, later started having left face and arm numbness along with paresthesias in the left leg at around 9 AM this morning, on admission to the ED his NIHSS was 1, [facility] telemetry stroke was consulted, patient was not a TPA candidate due to low NIH stroke scale, patient had cardioversion about 1 week ago for A. fib, his Eliquis was intermittently stopped last week but off late he has been on Eliquis compliantly per patient. Per patient he also takes aspirin at baseline. He denies any focal motor weakness, headache, dizziness, speech disturbances or visual disturbances. Per patient lives with family, does not use cane or walker to ambulate, denies any frequent falls, does drive and does not need any assistance for ADLs. CTA head/neck reported to show bilateral ICA 50 to 69% stenosis. [] Past Medical History Past Medical History (Chronic Problems): Chronic Problems (Last Reviewed 02/22/19 @ 17:53 by Mary Calderón DO) Carotid stenosis, bilateral (Chronic) Less than 50% bilaterally Venous insufficiency of both lower extremities (Chronic) Morbid obesity (Chronic) Left ventricular hypertrophy (Chronic) Grade III diastolic dysfunction (Chronic) Right ventricular dilation (Chronic) History of angioplasty (Chronic) History of back surgery (Chronic) Tobacco abuse (Chronic) Hypersomnia (Chronic) Pulmonary hypertension, mild (Chronic) COPD (chronic obstructive pulmonary disease) (Chronic) Nephrolithiasis (Chronic) Diabetes (Chronic) CAD (coronary artery disease) (Chronic) HTN (hypertension) (Chronic) Tension headache (Chronic) Medical History: Medical History (Last Reviewed 02/22/19 @ 17:53 by Mary Calderón DO) Tobacco abuse (Chronic) Z72.0 Hypersomnia (Chronic) G47.10 Pulmonary hypertension, mild (Chronic) I27.2 COPD (chronic obstructive pulmonary disease) (Chronic) J44.9 Nephrolithiasis (Chronic) Diabetes (Chronic) E11.9 CAD (coronary artery disease) (Chronic) I25.10 HTN (hypertension) (Chronic) I10 Tension headache (Chronic) G44.209 ELIZABETH (acute kidney injury) (Resolved) N17.9 Acute respiratory failure with hypoxia (Resolved) J96.01 Hypokalemia (Resolved) E87.6 Hyponatremia (Resolved) E87.1 Allergies No Known Allergies Allergy (Verified 02/04/18 10:44) Home Medications: Ambulatory Orders Medication Instructions Recorded Aspirin [Aspirin, Baby] 81 mg PO DAILY@0800 08/30/15 Rosuvastatin Calcium [Crestor] 40 mg PO DAILY 08/30/15 Albuterol Aerosols [Ventolin 2.5 mg INHALATION Q4H PRN PRN 10/15/15 Aerosols] Lansoprazole [Prevacid] 30 mg PO DAILY 12/18/16 fluticasone furoate 100 1 inh INHALATION Q24H 04/18/17 mcg-vilanterol 25 mcg/dose inhalation powder nitroglycerin 0.4 mg sublingual 0.4 mg SUBLINGUAL Q5-15M PRN 04/18/17 tablet Apixaban [Eliquis] 5 mg PO BID 02/04/18 Amiodarone HCl 200 mg PO DAILY 02/22/19 Furosemide [Lasix] 120 mg PO DAILY PRN 02/22/19 Glipizide [Glipizide ER] 10 mg PO DAILY 02/22/19 Insulin Degludec [Tresiba 30 units SQ DAILY 02/22/19 Flextouch U-200] Insulin Lispro [Humalog KwikPen] 4 units SQ DAILY PRN 02/22/19 Metoprolol Succinate 25 mg PO DAILY 02/22/19 Potassium Chloride 10 meq PO DAILY PRN 02/22/19 Sitagliptin Phos/Metformin HCl 1 tab PO BID 02/22/19 [Janumet 50-1,000 mg Tablet] Cefadroxil 1 gm PO BID #14 tab 02/23/19 Nicotine [Nicoderm Cq ([facility])] 21 mg TRANSDERM. DAILY #28 patch 02/23/19 Surgical History: Surgical History (Last Reviewed 02/22/19 @ 17:54 by Mary Calderón DO) History of angioplasty (Chronic) Z98.62 History of back surgery (Chronic) Z98.890 History of mandibular surgery (Resolved) Z98.890 Surgical History: angioplasty - 3 stents placed Psychiatric History: No pertinent psych hx Smoking Status: Current every day smoker - *Family History Maternal Family History: Family History (Last Reviewed 02/22/19 @ 17:59 by Mary Calderón DO) Mother Heart disease Dementia Father Heart disease History Items: Dementia Paternal Family History: Family History (Last Reviewed 02/22/19 @ 17:59 by Mary Calderón DO) Mother Heart disease Dementia Father Heart disease History Items: Heart Disease Patient Problems: Active and Suspected Problems (Last Reviewed 02/22/19 @ 17:53 by Mary Calderón DO) Obstructive sleep apnea (Suspected) Paresthesia of left arm and leg (Acute) TIA (transient ischemic attack) (Acute) - Physical Exam Vitals/I&O's: Vital Signs Temp Pulse Resp BP Pulse Ox 98.3 F 69 20 H 131/72 H 93 02/22/19 14:00 02/22/19 14:00 02/22/19 14:00 02/22/19 14:00 02/22/19 14:00 Oxygen Delivery Method Room Air Weight: 121.563 kg Body Mass Index (BMI) 38.4 Finger Stick Blood Glucose 189 General: Alert HEENT: Normocephalic Neck: Supple Lungs: Normal air movement Cardiovascular: Normal S1, Normal S2 Abdomen: Bowel Sounds Present Extremities: No cyanosis Neurological: - - Conscious, alert, AOA x3, CN II to XII grossly intact, power 5/5 both upper and lower extremities, plantars B/L flexor, no pronator drift, mild sensory loss left side, no cerebellar signs, gait deferred, reflexes + B/L B/S/T/K/A, No NR, fundus not visualized, NIHSS 1 at presnet, mRS 0 at baseline Psych/Mental Status: Normal Affect Laboratory Results 02/22/19 10:03: WBC 8.6, RBC 4.98, Hgb 15.1, Hct 45.8, MCV 92.0, MCH 30.3, MCHC 33.0, RDW Std Deviation 47.0 H, RDW Coeff of Jc 13.8, Plt Count 156, MPV 10.1, Immature Gran % (Auto) 0.500, Neut % (Auto) 72.0 H, Lymph % (Auto) 16.5 L, [place] % (Auto) 6.7, Eos % (Auto) 3.3, Baso % (Auto) 1.0, Absolute Neuts (auto) 6.2, Absolute Lymphs (auto) 1.42, Nucleated RBC % 0 02/22/19 10:03: PT 15.3 H, INR 1.2, APTT 35.2 02/22/19 10:03: Sodium 138, Potassium 3.9, Chloride 103, Carbon Dioxide 30.0, Anion Gap 5, BUN 18, Creatinine 0.94, Estim Creat Clear Calc 71.19, Est GFR (MDRD) Af Amer 101, Est GFR (MDRD) Non-Af 84, BUN/Creatinine Ratio 19.3, Glucose 205 H, Calcium 9.0, Troponin I < 0.015 02/22/19 10:03: Magnesium 1.7, Total Bilirubin 0.30, Direct Bilirubin 0.11, AST 33, ALT 39, Alkaline Phosphatase 114, Total Protein 7.5, Albumin 3.2, Globulin 4.3 H, TSH 1.24 02/22/19 10:18: POC Glucose 189 H 02/22/19 14:10: Troponin I < 0.015 Current Medications Acetaminophen (Tylenol) 650 mg PO Q4H PRN PRN PRN Reason: Headache/Temp>99.6F Albuterol Sulfate (Ventolin Aerosols) 2.5 mg INHALATION Q2H PRN PRN PRN Reason: SOB/Wheezing Albuterol Sulfate (Ventolin Aerosols) 2.5 mg INHALATION Q6HWA.RT LATOYA Apixaban (Eliquis) 5 mg PO BID LATOYA Aspirin (Aspirin, Baby) 81 mg PO DAILY@0800 LATOYA Atorvastatin Calcium (Lipitor) 80 mg PO QHS LATOYA Budesonide (Pulmicort Aerosol) 0.5 mg INHALATION Q12H.RT LATOYA Dextrose (D50w Syringe) 0 gm IV X1 PRN; Protocol PRN Reason: Hypoglycemia Glucagon () 1 mg IM .X1 PRN PRN Reason: Hypoglycemia Sodium Chloride () 1,000 mls @ 100 mls/hr IV .Q10H LATOYA Sodium Chloride () 1,000 mls @ 500 mls/hr IV .Q2H ONE Stop: 02/22/19 15:45 Nitroglycerin (Nitrostat) 0.4 mg SUBLINGUAL Q5M PRN PRN Reason: ANGINA Ondansetron HCl (Zofran) 4 mg IV Q8H PRN PRN PRN Reason: NAUSEA/VOMITING Pantoprazole Sodium (Protonix) 40 mg PO DAILY LATOYA Assessment/Plan All Active Problems (Last Reviewed 02/22/19 @ 17:53 by Mary Calderón, DO) Paresthesia of left arm and leg (Acute) TIA (transient ischemic attack) (Acute) ELIZABETH (acute kidney injury) (Resolved) Acute respiratory failure with hypoxia (Resolved) History of mandibular surgery (Resolved) Hypokalemia (Resolved) Hyponatremia (Resolved) The patient is a 73 year old M HTN, HLD, DM, A. fib on Eliquis, CAD status post stents, COPD, tobacco abuse, morbid obesity admitted with left-sided paresthesias and numbness. Per patient he woke up this morning 02/22/2019 and had left arm pain, later started having left face and arm numbness along with paresthesias in the left leg at around 9 AM this morning, on admission to the ED his NIHSS was 1, [facility] telestroke was consulted, patient was not a TPA candidate due to low NIH stroke scale, patient had cardioversion about 1 week ago for A. fib, his Eliquis was intermittently stopped last week but off late he has been on Eliquis compliantly per patient. Per patient he also takes aspirin at baseline. He denies any focal motor weakness, headache, dizziness, speech disturbances or visual disturbances. Per patient lives with family, does not use cane or walker to ambulate, denies any frequent falls, does drive and does not need any assistance for ADLs. CTA head/neck reported to show bilateral ICA 50 to 69% stenosis. Impression Probable TIA vs R/O Right MCA/Right Thalamic stroke Bilateral carotid stenosis Plan -Aspirin 81 mg p.o. once daily and Eliquis 5 mg p.o. twice daily. Bleeding risk discussed in detail with the patient -Lipitor 40 mg p.o. nightly -MRI brain -CT head/neck reported to show 50 to 69% stenosis in bilateral ICA -HbA1c, LDL -TTE-p -Permissive HTN for 24 hrs -Vascular surgery consult -Patient counseled to stop smoking -Stroke risk factors discussed and stroke education provided -PT/OT -GI/DVT prophylaxis -Fall precautions -Further medical management per hospitalist team -Please call with questions if any -Follow-up with neurology in 4 weeks -Thank you for allowing us to participate in patient's care and management This note has been generated using [employer] dictation software. It may contain incorrect words, spellings and punctuation that were not noted in the review of the note prior to signing
[2019-02-22 15:51] LABS: Hemoglobin A1c 8.6 % (4.2-6.3)
[2019-02-22] MEDS: LORazepam 2 MG/ML Syringe 0.5 MG IV (16:43)
[2019-02-22] MEDS: 0.9% Normal Saline 1,000 ML 500 ML IV (17:50)
[2019-02-22] MEDS: Budesonide Respules 0.5 MG/2 ML AMPUL.NEB. INHALATION (19:18)
[2019-02-22] MEDS: Albuterol 2.5 MG/3 ML VIAL.NEB. INHALATION (19:18)
[2019-02-22] MEDS: 0.9% Normal Saline 1,000 ML 100 ML IV (19:55)
[2019-02-22] MEDS: APIXABAN 5 MG TABLET PO (21:21)
[2019-02-22] MEDS: Acetaminophen 325 MG Tablet 650 MG PO (21:28)
[2019-02-22 21:36] LABS: Bedside Glucose 150 mg/dL (70-110)
[2019-02-22 21:51] LABS: Bedside Glucose 198 mg/dL (70-110)
[2019-02-23] VITALS (10 sets, daily range): BP systolic 143–145; BP diastolic 72–77; PULSE 40–85; RESP 16–20; TEMP 36.5–36.6; O2SAT 93–97
[2019-02-23] MEDS: hydrOXYzine PAM 25 MG Capsule 50 MG PO (01:12)
--- NOTE | 2019-02-23 03:28 | CPS ---
Pt. was put on overnight trend and started on Room Air. I told patient and his importance of riding out the overnight trend on Room Air. Pt. had extreme difficulties getting to sleep; he was determined that he needed oxygen before he could fall asleep. Pt.'s SpO2 went from 94% - 97% when oxygen titrated from Room Air to 2L NC
[2019-02-23] MEDS: 0.9% Normal Saline 1,000 ML 100 ML IV (05:46)
[2019-02-23 06:49] LABS: Cholesterol 113 mg/dL (200); High Density Lipoprotein 28 mg/dL; Triglycerides 235 mg/dL; Very Low Density Lipoprotein 47 mg/dL (5-40)
--- NOTE | 2019-02-23 06:52 | NURSING ---
Patient refusing to wear continuous pulse ox at this time. Requesting to be disconnected. Nursing notified RT. Pulse ox was removed.
[2019-02-23 06:56] LABS: Bedside Glucose 185 mg/dL (70-110)
[2019-02-23] MEDS: Budesonide Respules 0.5 MG/2 ML AMPUL.NEB. INHALATION (06:58)
[2019-02-23] MEDS: Albuterol 2.5 MG/3 ML VIAL.NEB. INHALATION (06:58)
--- NOTE | 2019-02-23 08:21 | DCINST_ITS ---
- Discharge Diagnoses Current Active Problems: Current Active and Chronic Problems (Last Reviewed 02/22/19 @ 17:53 by Mary Calderón DO) Paresthesia of left arm and leg (Acute) Carotid stenosis, bilateral (Chronic) Less than 50% bilaterally Venous insufficiency of both lower extremities (Chronic) Morbid obesity (Chronic) Left ventricular hypertrophy (Chronic) Grade III diastolic dysfunction (Chronic) Right ventricular dilation (Chronic) You will use the following diet at home:: Other - 2000 calorie cardiac diet - low salt and low fat. Your food should be the consistency of: Regular Your liquids should be the consistency of: Regular/Thin Discharge Activity: Return to Normal Activity Keep extremity elevated above heart level: Legs Call your doctor if you observe: Fever of 101 or Higher, Shortness of breath, Dizziness, Fainting spells, Chest pain Instructions: What Is a TIA?, What Are Snoring and Sleep Apnea?, Continuous Positive Air Pressure (CPAP) Additional Instructions: 1. You had a TIA, also called a transient ischemic attack. Some people call this a mini stroke. You get stroke symptoms but the symptoms go away in less than 24 hours. It is a warning! Many people go on to have a full blown stroke within the next 30 days UNLESS something is done to prevent this. What we can do to prevent this is to control your risk factors for stroke better. The risk factors for both stroke and heart attack are diabetes, high blood pressure, high cholesterol, smoking and being over 45 years old in men. The diabetes is not well controlled. Your HGBA1C is 8.6 and it should definitely be less than 7.5. Your blood sugars have all been less than 200 in the hospital and we held a few of your meds......you were placed on a 2000 calorie diet....try and stick to this. Losing weight helps with blood sugar control and so does exercise. Your BP is intermittently > than it should be. The goal for you is to keep the BP less than 130/80. If your BP is higher than this as an outpatient you should discuss changing you meds or increasing the dosages to get your BP under 130/80. The Triglycerides (another fat in the blood) are too high, likely because the blood sugars are not adequately controlled. They should be rechecked when your blood sugars are better controlled and if they are too high Dr. Tomchak may want to add Fenofibrate or Vascepa to your drug regimen to better control the triglycerides. The LDL(bad cholestero) is very good at 38 but, the good cholesterol is too low.....you want this number to be > 40 and yours is only 28. This number will go up with stopping smoking and starting an exercise program. Many of your problems would be better if you just stop smoking, get some exercise and lose a little weight. You can control this, if you want. 2. I suspect that you have sleep apnea. Sleep apnea causes AFIB. IF you have untreated sleep apnea then cardioversion and ablation are less likely to be effective in keeping you out of AFIB. When you have sleep apnea the oxygen in the blood drops and the the heart muscle does not get enough oxygen and you get AF. I think you need a sleep study. People feel much better when they get their sleep apnea treated........it stinks feeling tired and like crap all the time and people are less likely to do what is good for them. Maybe the reason you continue to smoke is that nicotine is a stimulant and this may make you feel less tired during the day. 3. You will be seen in the pulmonary clinic within the next 2 weeks and they will set you up for a sleep study and repeat pulmonary function tests. Take care of your body Markus, it is the only 1 you get. the best thing you could do for yourself that would contribute to a long life would be to quit smoking. We have a smoking cessation program at the hospital and if you are interested call the hospital and ask to speak to the smoking cessation coordinator. Never be afraid to ask for help.....we all need help sometimes. It is not a sign of weakness to ask for help. It was a pleasure to meet you...take care of yourself. Pending Tests on Discharge: none Allergies/Adverse Reactions: Allergies No Known Allergies Allergy (Verified 02/04/18 10:44) Medications to take at Discharge Aspirin [Aspirin, Baby] 81 mg PO DAILY@0800 08/30/15 Rosuvastatin Calcium [Crestor] 40 mg PO DAILY 08/30/15 Albuterol Aerosols [Ventolin Aerosols] 2.5 mg INHALATION Q4H PRN PRN 10/15/15 Lansoprazole [Prevacid] 30 mg PO DAILY 08/30/17 fluticasone furoate 100 mcg-vilanterol 25 mcg/dose inhalation powder 1 inh INHALATION Q24H 04/18/17 nitroglycerin 0.4 mg sublingual tablet 0.4 mg SUBLINGUAL Q5-15M PRN 04/18/17 Apixaban [Eliquis] 5 mg PO BID 02/04/18 Amiodarone HCl 200 mg PO DAILY 02/22/19 Furosemide [Lasix] 120 mg PO DAILY PRN 02/22/19 Glipizide [Glipizide ER] 10 mg PO DAILY 02/22/19 Insulin Degludec [Tresiba Flextouch U-200] 30 units SQ DAILY 02/22/19 Insulin Lispro [Humalog KwikPen] 4 units SQ DAILY PRN 02/22/19 Metoprolol Succinate 25 mg PO DAILY 02/22/19 Potassium Chloride 10 meq PO DAILY PRN 02/22/19 Sitagliptin Phos/Metformin HCl [Janumet 50-1,000 mg Tablet] 1 tab PO BID 02/22/19 Nicotine [Nicoderm Cq ([facility])] 21 mg TRANSDERM. DAILY #28 patch 02/23/19 The following prescriptions were given: Nicotine [Nicoderm Cq ([facility])] 21 mg TRANSDERM. DAILY #28 patch Prescription Printed Primary Care Physician: Gonsalo Saenz MD [Primary Care Provider] - Please follow up with your Primary Care Physician in: 1 week Test Results: Test results from this visit will be discussed in further detail at your follow- up appointment, if applicable. Please Follow Up With: Victoria Amezcua - pulmonary clinic When: within the next 2 weeks Proposed Discharge Date: 02/23/19
--- NOTE | 2019-02-23 09:36 | CON.PCM_ITS ---
Reason for Consult Date of Consultation: 02/23/19 Reason for Consultation: Suspected sleep apnea History of Present Illness: The patient is a 73-year-old male, with a history as outlined below, who was admitted through the emergency department on February 22 with right-sided numbness. The patient has a known history of COPD and chronic tobacco dependency with a 40+-pack-year smoking history. He states that he was followed previously by Dr. Hannah but is not been seen by him for approximately 3 years. Pulmonary function studies were completed in July 2016 and did reveal evidence of a partially reversible severe mixed ventilatory defect with symmetric reduction in diffusing capacity. The patient reports that he is currently prescribed Breo as an outpatient. The patient was admitted to the progressive care unit and worked up from a neurological perspective. MRI brain was unremarkable, with the exception of minor periventricular white matter ischemic changes without evidence for acute infarction. Surface echocardiogram did reveal evidence of moderate concentric LVH with stage III diastolic dysfunction and an ejection fraction of 55%. While the patient denies the presence of audible snoring when sleeping, he did report the presence of nonrestorative sleep, daytime hypersomnolence and frequent daytime napping, raising the concern for underlying sleep disordered breathing. The patient has never been formally evaluated on an outpatient basis with a diagnostic polysomnogram. He has remained hemodynamically stable throughout his hospitalization and is currently maintaining appropriate oxygen saturations on room air. Past Medical History Past Medical History (Chronic Problems): Chronic Problems (Last Reviewed 02/22/19 @ 17:53 by Mary Calderón DO) Carotid stenosis, bilateral (Chronic) Less than 50% bilaterally Venous insufficiency of both lower extremities (Chronic) Morbid obesity (Chronic) Left ventricular hypertrophy (Chronic) Grade III diastolic dysfunction (Chronic) Right ventricular dilation (Chronic) History of angioplasty (Chronic) History of back surgery (Chronic) Tobacco abuse (Chronic) Hypersomnia (Chronic) Pulmonary hypertension, mild (Chronic) COPD (chronic obstructive pulmonary disease) (Chronic) Nephrolithiasis (Chronic) Diabetes (Chronic) CAD (coronary artery disease) (Chronic) HTN (hypertension) (Chronic) Tension headache (Chronic) Medical History: Medical History (Last Reviewed 02/22/19 @ 17:53 by Mary Calderón DO) Tobacco abuse (Chronic) Z72.0 Hypersomnia (Chronic) G47.10 Pulmonary hypertension, mild (Chronic) I27.2 COPD (chronic obstructive pulmonary disease) (Chronic) J44.9 Nephrolithiasis (Chronic) Diabetes (Chronic) E11.9 CAD (coronary artery disease) (Chronic) I25.10 HTN (hypertension) (Chronic) I10 Tension headache (Chronic) G44.209 ELIZABETH (acute kidney injury) (Resolved) N17.9 Acute respiratory failure with hypoxia (Resolved) J96.01 Hypokalemia (Resolved) E87.6 Hyponatremia (Resolved) E87.1 Allergies No Known Allergies Allergy (Verified 02/04/18 10:44) Home Medications: Ambulatory Orders Medication Instructions Recorded Aspirin [Aspirin, Baby] 81 mg PO DAILY@0800 08/30/15 Rosuvastatin Calcium [Crestor] 40 mg PO DAILY 08/30/15 Albuterol Aerosols [Ventolin 2.5 mg INHALATION Q4H PRN PRN 10/15/15 Aerosols] Lansoprazole [Prevacid] 30 mg PO DAILY 12/18/16 fluticasone furoate 100 1 inh INHALATION Q24H 04/18/17 mcg-vilanterol 25 mcg/dose inhalation powder nitroglycerin 0.4 mg sublingual 0.4 mg SUBLINGUAL Q5-15M PRN 04/18/17 tablet Apixaban [Eliquis] 5 mg PO BID 02/04/18 Amiodarone HCl 200 mg PO DAILY 02/22/19 Furosemide [Lasix] 120 mg PO DAILY PRN 02/22/19 Glipizide [Glipizide ER] 10 mg PO DAILY 02/22/19 Insulin Degludec [Tresiba 30 units SQ DAILY 02/22/19 Flextouch U-200] Insulin Lispro [Humalog KwikPen] 4 units SQ DAILY PRN 02/22/19 Metoprolol Succinate 25 mg PO DAILY 02/22/19 Potassium Chloride 10 meq PO DAILY PRN 02/22/19 Sitagliptin Phos/Metformin HCl 1 tab PO BID 02/22/19 [Janumet 50-1,000 mg Tablet] Surgical History: Surgical History (Last Reviewed 02/22/19 @ 17:54 by Mary Calderón DO) History of angioplasty (Chronic) Z98.62 History of back surgery (Chronic) Z98.890 History of mandibular surgery (Resolved) Z98.890 Surgical History: angioplasty - 3 stents placed Psychiatric History: No pertinent psych hx Lives: Spouse/ Significant Other Smoking Status: Current every day smoker Tobacco Use: Cigarettes Alcohol: Occasional Drugs: None - *Family History Maternal Family History: Family History (Last Reviewed 02/22/19 @ 17:59 by Mary Calderón DO) Mother Heart disease Dementia Father Heart disease History Items: Dementia Paternal Family History: Family History (Last Reviewed 02/22/19 @ 17:59 by Mary Calderón DO) Mother Heart disease Dementia Father Heart disease History Items: Heart Disease Review of Systems Constitutional: Denies: Chills, Fever, Weight Change HEENT: Denies: Head Aches, Sinus Congestion, Sinus Drainage Cardiovascular: Denies: Chest Pain, Palpitations Respiratory: Denies: Cough, Shortness of breath at rest, Sputum production Gastrointestinal: Denies: Abdominal Pain, Nausea, Vomiting Genitourinary: Denies: Dysuria Musculoskeletal: Denies: Joint Pain, Joint Tenderness Skin: Denies: Rash, Wounds Neurological: Reports: Numbness, Tingling Psychiatric: Denies: Anxiety, Depression, Homicidal Ideations, Suicidal Ideations Hematologic/ Lymphatic: Denies: Easy Bruising, Easy Bleeding Patient Problems: Active and Suspected Problems (Last Reviewed 02/22/19 @ 17:53 by Mary Calderón DO) Paresthesia of left arm and leg (Acute) TIA (transient ischemic attack) (Suspected) Objective: The patient's most recent lab work, culture data and imaging studies have all been personally reviewed. - Physical Exam Vitals/I&O's: Vital Signs Temp Pulse Resp BP Pulse Ox 97.7 F L 82 19 H 144/77 H 93 02/23/19 05:53 02/23/19 07:25 02/23/19 07:25 02/23/19 05:53 02/23/19 07:45 Oxygen Flow Rate (L/min) 2 Oxygen Delivery Method Room Air Weight: 271 lb 2.697 oz Body Mass Index (BMI) 38.9 Finger Stick Blood Glucose 189 Intake and Output for Last 24 Hours 02/21/19 02/22/19 02/23/19 23:59 23:59 23:59 Intake Total 1886.67 / 1886.67 818.33 / 818.33 Balance 1886.67 / 1886.67 818.33 / 818.33 General: Alert, Oriented x3, Cooperative, No apparent distress, - - Obese. Sitting in bedside recliner. HEENT: Atraumatic, PERRLA, Normocephalic Oral: No Gingival or Mucosal Lesions/ Ulcerations Neck: Supple, No Nodes, Trachea Midline Lungs: No rhonchi, No wheeze, No rales, Diminished Cardiovascular: Normal S1, Normal S2, Irregular Rate, Murmur Abdomen: Bowel Sounds Present, Soft, Non Tender, Obese Extremities: No clubbing, No cyanosis, No edema Skin: No breakdown Musculoskeletal: No Tenderness to Palpation of Joints or Extremities, No Muscle Wasting Lymphatic: No Cervical, Supraclavicular, or Inguinal Adenopathy Neurological: Cranial nerves II-XII grossly intact, Neuro grossly intact Psych/Mental Status: Normal Affect, Appropriate Labs (Last 48 Hours) 02/22/19 02/22/19 02/22/19 10:03 10:03 10:03 WBC 8.6 RBC 4.98 Hgb 15.1 Hct 45.8 MCV 92.0 MCH 30.3 MCHC 33.0 RDW Std Deviation 47.0 H RDW Coeff of Jc 13.8 Plt Count 156 MPV 10.1 Immature Gran % (Auto) 0.500 Neut % (Auto) 72.0 H Lymph % (Auto) 16.5 L [place] % (Auto) 6.7 Eos % (Auto) 3.3 Baso % (Auto) 1.0 Absolute Neuts (auto) 6.2 Absolute Lymphs (auto) 1.42 Nucleated RBC % 0 PT 15.3 H INR 1.2 APTT 35.2 Sodium 138 Potassium 3.9 Chloride 103 Carbon Dioxide 30.0 Anion Gap 5 BUN 18 Creatinine 0.94 Estim Creat Clear Calc 71.19 Est GFR (MDRD) Af Amer 101 Est GFR (MDRD) Non-Af 84 BUN/Creatinine Ratio 19.3 Glucose 205 H Hemoglobin A1c Calcium 9.0 Magnesium Total Bilirubin Direct Bilirubin AST ALT Alkaline Phosphatase Troponin I < 0.015 Total Protein Albumin Globulin Triglycerides Cholesterol LDL Cholesterol VLDL Cholesterol HDL Cholesterol TSH POC Glucose 02/22/19 02/22/19 02/22/19 10:03 10:03 10:18 WBC RBC Hgb Hct MCV MCH MCHC RDW Std Deviation RDW Coeff of Jc Plt Count MPV Immature Gran % (Auto) Neut % (Auto) Lymph % (Auto) [place] % (Auto) Eos % (Auto) Baso % (Auto) Absolute Neuts (auto) Absolute Lymphs (auto) Nucleated RBC % PT INR APTT Sodium Potassium Chloride Carbon Dioxide Anion Gap BUN Creatinine Estim Creat Clear Calc Est GFR (MDRD) Af Amer Est GFR (MDRD) Non-Af BUN/Creatinine Ratio Glucose Hemoglobin A1c 8.6 H Calcium Magnesium 1.7 Total Bilirubin 0.30 Direct Bilirubin 0.11 AST 33 ALT 39 Alkaline Phosphatase 114 Troponin I Total Protein 7.5 Albumin 3.2 Globulin 4.3 H Triglycerides Cholesterol LDL Cholesterol VLDL Cholesterol HDL Cholesterol TSH 1.24 POC Glucose 189 H 02/22/19 02/22/19 02/22/19 14:10 17:46 17:57 WBC RBC Hgb Hct MCV MCH MCHC RDW Std Deviation RDW Coeff of Jc Plt Count MPV Immature Gran % (Auto) Neut % (Auto) Lymph % (Auto) [place] % (Auto) Eos % (Auto) Baso % (Auto) Absolute Neuts (auto) Absolute Lymphs (auto) Nucleated RBC % PT INR APTT Sodium Potassium Chloride Carbon Dioxide Anion Gap BUN Creatinine Estim Creat Clear Calc Est GFR (MDRD) Af Amer Est GFR (MDRD) Non-Af BUN/Creatinine Ratio Glucose Hemoglobin A1c Calcium Magnesium Total Bilirubin Direct Bilirubin AST ALT Alkaline Phosphatase Troponin I < 0.015 < 0.015 Total Protein Albumin Globulin Triglycerides Cholesterol LDL Cholesterol VLDL Cholesterol HDL Cholesterol TSH POC Glucose 150 H 02/22/19 02/22/19 02/23/19 19:54 21:32 05:55 WBC RBC Hgb Hct MCV MCH MCHC RDW Std Deviation RDW Coeff of Jc Plt Count MPV Immature Gran % (Auto) Neut % (Auto) Lymph % (Auto) [place] % (Auto) Eos % (Auto) Baso % (Auto) Absolute Neuts (auto) Absolute Lymphs (auto) Nucleated RBC % PT INR APTT Sodium Potassium Chloride Carbon Dioxide Anion Gap BUN Creatinine Estim Creat Clear Calc Est GFR (MDRD) Af Amer Est GFR (MDRD) Non-Af BUN/Creatinine Ratio Glucose Hemoglobin A1c Calcium Magnesium Total Bilirubin Direct Bilirubin AST ALT Alkaline Phosphatase Troponin I < 0.015 Total Protein Albumin Globulin Triglycerides 235 H Cholesterol 113 LDL Cholesterol 38 VLDL Cholesterol 47 H HDL Cholesterol 28 L TSH POC Glucose 198 H 02/23/19 06:47 WBC RBC Hgb Hct MCV MCH MCHC RDW Std Deviation RDW Coeff of Jc Plt Count MPV Immature Gran % (Auto) Neut % (Auto) Lymph % (Auto) [place] % (Auto) Eos % (Auto) Baso % (Auto) Absolute Neuts (auto) Absolute Lymphs (auto) Nucleated RBC % PT INR APTT Sodium Potassium Chloride Carbon Dioxide Anion Gap BUN Creatinine Estim Creat Clear Calc Est GFR (MDRD) Af Amer Est GFR (MDRD) Non-Af BUN/Creatinine Ratio Glucose Hemoglobin A1c Calcium Magnesium Total Bilirubin Direct Bilirubin AST ALT Alkaline Phosphatase Troponin I Total Protein Albumin Globulin Triglycerides Cholesterol LDL Cholesterol VLDL Cholesterol HDL Cholesterol TSH POC Glucose 185 H Clinical Impression(s) from Imaging Studies Brain CT 02/22/19 10:16 IMPRESSION: Chronic involutional changes of the brain more prominent overlying the left frontal lobe.. N.B. : The above information has been verbally conveyed by Cricket Mortensen to Delilah Grijalva on 02/22/2019 10:40:42 (ET). Electronically Signed: Cricket Mortensen, at 10:43 EST , Service support , ADDENDUM: 02/22/19 1050 IMPRESSION: Chronic involutional changes of the brain more prominent overlying the left frontal lobe.. N.B. : The above information has been verbally conveyed by Cricket Mortensen to Delilah Grijalva on 02/22/2019 10:40:42 (ET). Electronically Signed: Cricket Mortensen, at 10:43 EST , Service support , Chest X-Ray 02/22/19 10:16 IMPRESSION: Diffuse hazy airspace disease with suspected trace effusions (mild pulmonary vascular congestion/edema) Cardiomegaly Stable elevated right hemidiaphragm Electronically Signed: Nguyễn Ho DO at 12:34 EST Tel , Service support , Head/Neck CTA 02/22/19 11:00 IMPRESSION: Calcific plaques at the origins of the right and left internal carotid artery causing approximately 50-69% stenosis. Electronically Signed: Cricket Festus, at 12:28 EST , Service support , Brain MRI 02/22/19 14:17 IMPRESSION: Minor periventricular white matter ischemic changes without evidence for acute infarct Other findings as above Electronically Signed: Johnnie Gomes MD at 18:02 EST , Service support , Current Medications Acetaminophen (Tylenol) 650 mg PO Q4H PRN PRN PRN Reason: Headache/Temp>99.6F Last Admin: 02/22/19 21:28 Dose: 650 mg Documented by: Albuterol Sulfate (Ventolin Aerosols) 2.5 mg INHALATION Q2H PRN PRN PRN Reason: SOB/Wheezing Albuterol Sulfate (Ventolin Aerosols) 2.5 mg INHALATION Q6HWA.RT [facility] Last Admin: 02/23/19 06:58 Dose: 2.5 mg Documented by: Amiodarone HCl (Cordarone) 200 mg PO DAILY LATOYA Apixaban (Eliquis) 5 mg PO BID [facility] Last Admin: 02/22/19 21:21 Dose: 5 mg Documented by: Aspirin (Aspirin, Baby) 81 mg PO DAILY@0800 LATOYA Atorvastatin Calcium (Lipitor) 80 mg PO QHS [facility] Last Admin: 02/22/19 21:19 Dose: Not Given Documented by: Budesonide (Pulmicort Aerosol) 0.5 mg INHALATION Q12H.RT [facility] Last Admin: 02/23/19 06:58 Dose: 0.5 mg Documented by: Dextrose (D50w Syringe) 0 gm IV X1 PRN; Protocol PRN Reason: Hypoglycemia Furosemide (Lasix) 120 mg PO DAILY PRN PRN Reason: Swelling Glipizide (Glucotrol Xl) 10 mg PO DAILY@0800 [facility] Glucagon () 1 mg IM .X1 PRN PRN Reason: Hypoglycemia Cefazolin Sodium () 1 gm in 50 mls @ 100 mls/hr IV Q8 [facility] Insulin Glargine (Lantus (Bkc)) 30 units SC DAILY [facility] Metoprolol Succinate (Toprol Xl (Beta Lopez)) 25 mg PO DAILY [facility] Multi-Ingredient Cream (Eucerin) 1 applic TOPICAL QHS LATOYA; Protocol Last Admin: 02/22/19 21:22 Dose: 1 applic Documented by: Nicotine (Nicoderm Cq (Pbkc)) 21 mg TRANSDERM. DAILY [facility] Nitroglycerin (Nitrostat) 0.4 mg SUBLINGUAL Q5M PRN PRN Reason: ANGINA Ondansetron HCl (Zofran) 4 mg IV Q8H PRN PRN PRN Reason: NAUSEA/VOMITING Pantoprazole Sodium (Protonix) 40 mg PO DAILY LATOYA Sodium Chloride () 10 - 40 ml IV UD PRN PRN Reason: SALINE FLUSH Assessment/Plan All Active Problems (Last Reviewed 02/22/19 @ 17:53 by Mary Calderón DO) Paresthesia of left arm and leg (Acute) ELIZABETH (acute kidney injury) (Resolved) Acute respiratory failure with hypoxia (Resolved) History of mandibular surgery (Resolved) Hypokalemia (Resolved) Hyponatremia (Resolved) RECOMMENDATIONS: 1. Smoking cessation is strongly advised. 2. Continue Breo and as needed albuterol at discharge. 3. Recommend outpatient pulmonary follow-up within 2 weeks of discharge. 4. At follow-up, orders for repeat pulmonary function studies and diagnostic polysomnogram can be placed. IMPRESSIONS: 1. Known COPD and continuous tobacco dependency The patient reports that he was previously being followed by Dr. Hannah, but has not been seen in the pulmonary medicine clinic for approximately 3 years. He did have pulmonary function studies completed in 2017, but does continue to smoke. Smoking cessation counseling was provided. I would advocate that repeat pulmonary function studies be completed on an outpatient basis. In the interim, the patient can continue to utilize his prescribed Breo and as needed albuterol. 2. Suspected sleep apnea The patient endorses symptoms concerning for underlying sleep disordered breathing, including nonrestorative sleep, daytime hypersomnolence and frequent napping. I would recommend that a diagnostic polysomnogram be completed upon follow-up in the pulmonary medicine clinic. The patient seems agreeable to testing. This note was generated with [employer] software. It may contain incorrect words, spelling, and punctuation that were not noted in checking the note before signing. Code Visit Inpatient E&M: 99249 Init Hosp L2
[2019-02-23] MEDS: Aspirin 81 MG TAB.CHEW PO (09:52)
[2019-02-23] MEDS: APIXABAN 5 MG TABLET PO (09:52)
[2019-02-23] MEDS: glipiZIDE XL 5 MG Tablet 10 MG PO (09:57)
[2019-02-23] MEDS: Amiodarone 200 MG Tablet PO (09:57)
[2019-02-23] MEDS: Metoprolol(XL)Succ 25 MG Tablet PO (09:58)
[2019-02-23 10:16] LABS: Bedside Glucose 279 mg/dL (70-110)
--- NOTE | 2019-02-23 10:18 | CASEMGMT ---
SW met with patient, introduced self and role at [facility]. SW explained that anytime anyone has had a Stroke or TIA SW completes a Depression screen. Patient politely declined to participate. Kiaan JORGE
--- NOTE | 2019-02-23 10:27 | CASEMGMT ---
ANA MERIDA assessment: Face to Face with patient for initial transition planning/care coordination assessment. ANA MERIDA introduced self and role at [facility], pt voices understanding and consents to assessment at this time. Pt is sitting up in chair in no distress at this time. Pt is A/Ox4 at this time and answers all questions appropriately at this time. Care providers, pharmacy, and demographics verified/updated at this time. PCP: Dany Specialists: Andrea cardio at [facility] Preferred Pharmacy: [facility] Insurance: [facility] A/B, AARP Prescription Benefit: AARP Living Will/HPOA: Pt states has LW/HPOA and is aware that it's not on file at [facility] at this time. Pt states that his , Mary Nayak, is HPOA. LNOK: Mary Nayak, ; Taylor Cazares, daughter Living Arrangements: Pt states lives with in 1 story home and states no concerns at home at this time. Pt states is normally independent with ADL's. Transportation: Pt states drives self and states no transportation concerns at this time. DME/HHC: Pt states has nebulizer and home oxygen prn 2liters thru [employer]. Pt states no need for any further DME at this time. Pt states no hx of HHC or SNF in the past. Pt declines OP therapy at this time. Pt states no concerns with going home at time of discharge. Pt states is retired. Pt states smokes a pk/day and states does not drink ETOH. Pt states no further concerns/needs at this time. CM to follow for any further discharge planning/needs. Advised pt/ to ask for CM if any further questions/concerns/needs arise, voice understanding. Pt Goal: Home Plan[place] ANA MERIDA
--- NOTE | 2019-02-23 12:21 | DS.PCM_ITS ---
Discharge Date and Diagnosis - Problem List Patient Problems: Active and Suspected Problems (Last Reviewed 02/22/19 @ 17:53 by Mary Calderón DO) Obstructive sleep apnea (Suspected) Paresthesia of left arm and leg (Acute) TIA (transient ischemic attack) (Acute) Date of Admission: 02/22/19 Date of Discharge: 02/23/19 - Primary Discharge Diagnosis Active and Suspected Problems (Last Reviewed 02/22/19 @ 17:53 by Mary Calderón DO) Paresthesia of left arm and leg (Acute) TIA (transient ischemic attack) (Acute) Obstructive sleep apnea (Suspected) Acute cellulitis left upper extremity - Secondary Discharge Diagnosis Chronic Problems (Last Reviewed 02/22/19 @ 17:53 by Mary Calderón DO) Carotid stenosis, bilateral (Chronic) Less than 50% bilaterally on Carotid US Venous insufficiency of both lower extremities (Chronic) Morbid obesity (Chronic) Left ventricular hypertrophy (Chronic) Grade III diastolic dysfunction (Chronic) Right ventricular dilation (Chronic) History of angioplasty (Chronic) History of back surgery (Chronic) Tobacco abuse (Chronic) Hypersomnia (Chronic) Pulmonary hypertension, mild (Chronic) COPD (chronic obstructive pulmonary disease) (Chronic) Nephrolithiasis (Chronic) Diabetes II (Chronic) - not adequately controlled. HGBA1C is 8.6% CAD (coronary artery disease) (Chronic) HTN (hypertension) (Chronic) Tension headache (Chronic) Morbid obesity Low HDL Atrial fibrillation Chronic anticoagulation with Eliquis [facility] Course and Treatment Imaging Results: Clinical Impression(s) from Imaging Studies Brain CT 02/22/19 10:16 IMPRESSION: Chronic involutional changes of the brain more prominent overlying the left frontal lobe.. N.B. : The above information has been verbally conveyed by Cricket Mortensen to Delilah Grijalva on 02/22/2019 10:40:42 (ET). Electronically Signed: Cricket Mortensen, at 10:43 EST , Service support , ADDENDUM: 02/22/19 1050 IMPRESSION: Chronic involutional changes of the brain more prominent overlying the left frontal lobe.. N.B. : The above information has been verbally conveyed by Cricket Mortensen to Delilah Grijalva on 02/22/2019 10:40:42 (ET). Electronically Signed: Cricket Festus, at 10:43 EST , Service support , Chest X-Ray 02/22/19 10:16 IMPRESSION: Diffuse hazy airspace disease with suspected trace effusions (mild pulmonary vascular congestion/edema) Cardiomegaly Stable elevated right hemidiaphragm Electronically Signed: Nguyễn Ho DO at 12:34 EST Tel , Service support , Head/Neck CTA 02/22/19 11:00 IMPRESSION: Calcific plaques at the origins of the right and left internal carotid artery causing approximately 50-69% stenosis. Electronically Signed: Cricket Festus, at 12:28 EST , Service support , Brain MRI 02/22/19 14:17 IMPRESSION: Minor periventricular white matter ischemic changes without evidence for acute infarct Other findings as above Electronically Signed: Johnnie Gomes MD at 18:02 EST , Service support , Laboratory Tests 02/23/19 02/23/19 02/23/19 Range/Units 10:05 06:47 05:55 WBC (4.4-11.0) K/mm3 RBC (4.6-6.2) M/mm3 Hgb (13.0-16.5) g/dL Hct (40-54) % MCV (80-94) fL MCH (27.0-32.0) pg MCHC (32-36) g/dL RDW Std Deviation (35.1-43.9) fl RDW Coeff of Jc (11.6-14.6) % Plt Count (150-450) K/mm3 MPV (6.2-12.0) fl Immature Gran % (Auto) (0.0-0.9) % Neut % (Auto) (47-70) % Lymph % (Auto) (19-41) % Walsh % (Auto) (0-10) % Eos % (Auto) (0-5) % Baso % (Auto) (0-1) % Absolute Neuts (auto) (2.0-7.7) X10^3/uL Absolute Lymphs (auto) (0.83-4.51) X10^3/uL Nucleated RBC % (0-5) % PT (11.7-14.9) SECONDS INR APTT (24.1-36.2) Seconds Sodium (136-145) mmol/L Potassium (3.5-5.1) mmol/L Chloride (98-107) mmol/L Carbon Dioxide (21.0-32.0) mmol/L Anion Gap (5-15) BUN (7-18) mg/dL Creatinine (0.70-1.30) mg/dL Estim Creat Clear Calc ml/min Est GFR (MDRD) Af Amer (>60) mL/min Est GFR (MDRD) Non-Af (>60) mL/min BUN/Creatinine Ratio (10-20) RATIO Glucose (74-106) mg/dL Hemoglobin A1c (4.2-6.3) % Calcium (8.5-10.1) mg/dL Magnesium (1.6-2.6) mg/dL Total Bilirubin (0.20-1.00) mg/dL Direct Bilirubin (0.00-0.30) mg/dL AST (15-37) U/L ALT (16-61) U/L Alkaline Phosphatase (45-117) U/L Troponin I (<0.045) ng/mL Total Protein (6.4-8.2) g/dL Albumin (3.2-5.0) g/dL Globulin (2.2-4.2) g/dL Triglycerides 235 H ( - 199) mg/dL Cholesterol 113 (200) mg/dL LDL Cholesterol 38 (0-130) mg/dL VLDL Cholesterol 47 H (5-40) mg/dL HDL Cholesterol 28 L (40 - ) mg/dL TSH (0.358-3.74) uIU/mL POC Glucose 279 H 185 H (70-110) mg/dL 02/22/19 02/22/19 02/22/19 Range/Units 21:32 19:54 17:57 WBC (4.4-11.0) K/mm3 RBC (4.6-6.2) M/mm3 Hgb (13.0-16.5) g/dL Hct (40-54) % MCV (80-94) fL MCH (27.0-32.0) pg MCHC (32-36) g/dL RDW Std Deviation (35.1-43.9) fl RDW Coeff of Jc (11.6-14.6) % Plt Count (150-450) K/mm3 MPV (6.2-12.0) fl Immature Gran % (Auto) (0.0-0.9) % Neut % (Auto) (47-70) % Lymph % (Auto) (19-41) % Walsh % (Auto) (0-10) % Eos % (Auto) (0-5) % Baso % (Auto) (0-1) % Absolute Neuts (auto) (2.0-7.7) X10^3/uL Absolute Lymphs (auto) (0.83-4.51) X10^3/uL Nucleated RBC % (0-5) % PT (11.7-14.9) SECONDS INR APTT (24.1-36.2) Seconds Sodium (136-145) mmol/L Potassium (3.5-5.1) mmol/L Chloride (98-107) mmol/L Carbon Dioxide (21.0-32.0) mmol/L Anion Gap (5-15) BUN (7-18) mg/dL Creatinine (0.70-1.30) mg/dL Estim Creat Clear Calc ml/min Est GFR (MDRD) Af Amer (>60) mL/min Est GFR (MDRD) Non-Af (>60) mL/min BUN/Creatinine Ratio (10-20) RATIO Glucose (74-106) mg/dL Hemoglobin A1c (4.2-6.3) % Calcium (8.5-10.1) mg/dL Magnesium (1.6-2.6) mg/dL Total Bilirubin (0.20-1.00) mg/dL Direct Bilirubin (0.00-0.30) mg/dL AST (15-37) U/L ALT (16-61) U/L Alkaline Phosphatase (45-117) U/L Troponin I < 0.015 < 0.015 (<0.045) ng/mL Total Protein (6.4-8.2) g/dL Albumin (3.2-5.0) g/dL Globulin (2.2-4.2) g/dL Triglycerides ( - 199) mg/dL Cholesterol (200) mg/dL LDL Cholesterol (0-130) mg/dL VLDL Cholesterol (5-40) mg/dL HDL Cholesterol (40 - ) mg/dL TSH (0.358-3.74) uIU/mL POC Glucose 198 H (70-110) mg/dL 02/22/19 02/22/19 02/22/19 Range/Units 17:46 14:10 10:18 WBC (4.4-11.0) K/mm3 RBC (4.6-6.2) M/mm3 Hgb (13.0-16.5) g/dL Hct (40-54) % MCV (80-94) fL MCH (27.0-32.0) pg MCHC (32-36) g/dL RDW Std Deviation (35.1-43.9) fl RDW Coeff of Jc (11.6-14.6) % Plt Count (150-450) K/mm3 MPV (6.2-12.0) fl Immature Gran % (Auto) (0.0-0.9) % Neut % (Auto) (47-70) % Lymph % (Auto) (19-41) % Walsh % (Auto) (0-10) % Eos % (Auto) (0-5) % Baso % (Auto) (0-1) % Absolute Neuts (auto) (2.0-7.7) X10^3/uL Absolute Lymphs (auto) (0.83-4.51) X10^3/uL Nucleated RBC % (0-5) % PT (11.7-14.9) SECONDS INR APTT (24.1-36.2) Seconds Sodium (136-145) mmol/L Potassium (3.5-5.1) mmol/L Chloride (98-107) mmol/L Carbon Dioxide (21.0-32.0) mmol/L Anion Gap (5-15) BUN (7-18) mg/dL Creatinine (0.70-1.30) mg/dL Estim Creat Clear Calc ml/min Est GFR (MDRD) Af Amer (>60) mL/min Est GFR (MDRD) Non-Af (>60) mL/min BUN/Creatinine Ratio (10-20) RATIO Glucose (74-106) mg/dL Hemoglobin A1c (4.2-6.3) % Calcium (8.5-10.1) mg/dL Magnesium (1.6-2.6) mg/dL Total Bilirubin (0.20-1.00) mg/dL Direct Bilirubin (0.00-0.30) mg/dL AST (15-37) U/L ALT (16-61) U/L Alkaline Phosphatase (45-117) U/L Troponin I < 0.015 (<0.045) ng/mL Total Protein (6.4-8.2) g/dL Albumin (3.2-5.0) g/dL Globulin (2.2-4.2) g/dL Triglycerides ( - 199) mg/dL Cholesterol (200) mg/dL LDL Cholesterol (0-130) mg/dL VLDL Cholesterol (5-40) mg/dL HDL Cholesterol (40 - ) mg/dL TSH (0.358-3.74) uIU/mL POC Glucose 150 H 189 H (70-110) mg/dL 02/22/19 02/22/19 02/22/19 Range/Units 10:03 10:03 10:03 WBC (4.4-11.0) K/mm3 RBC (4.6-6.2) M/mm3 Hgb (13.0-16.5) g/dL Hct (40-54) % MCV (80-94) fL MCH (27.0-32.0) pg MCHC (32-36) g/dL RDW Std Deviation (35.1-43.9) fl RDW Coeff of Jc (11.6-14.6) % Plt Count (150-450) K/mm3 MPV (6.2-12.0) fl Immature Gran % (Auto) (0.0-0.9) % Neut % (Auto) (47-70) % Lymph % (Auto) (19-41) % Walsh % (Auto) (0-10) % Eos % (Auto) (0-5) % Baso % (Auto) (0-1) % Absolute Neuts (auto) (2.0-7.7) X10^3/uL Absolute Lymphs (auto) (0.83-4.51) X10^3/uL Nucleated RBC % (0-5) % PT (11.7-14.9) SECONDS INR APTT (24.1-36.2) Seconds Sodium 138 (136-145) mmol/L Potassium 3.9 (3.5-5.1) mmol/L Chloride 103 (98-107) mmol/L Carbon Dioxide 30.0 (21.0-32.0) mmol/L Anion Gap 5 (5-15) BUN 18 (7-18) mg/dL Creatinine 0.94 (0.70-1.30) mg/dL Estim Creat Clear Calc 71.19 ml/min Est GFR (MDRD) Af Amer 101 (>60) mL/min Est GFR (MDRD) Non-Af 84 (>60) mL/min BUN/Creatinine Ratio 19.3 (10-20) RATIO Glucose 205 H (74-106) mg/dL Hemoglobin A1c 8.6 H (4.2-6.3) % Calcium 9.0 (8.5-10.1) mg/dL Magnesium 1.7 (1.6-2.6) mg/dL Total Bilirubin 0.30 (0.20-1.00) mg/dL Direct Bilirubin 0.11 (0.00-0.30) mg/dL AST 33 (15-37) U/L ALT 39 (16-61) U/L Alkaline Phosphatase 114 (45-117) U/L Troponin I < 0.015 (<0.045) ng/mL Total Protein 7.5 (6.4-8.2) g/dL Albumin 3.2 (3.2-5.0) g/dL Globulin 4.3 H (2.2-4.2) g/dL Triglycerides ( - 199) mg/dL Cholesterol (200) mg/dL LDL Cholesterol (0-130) mg/dL VLDL Cholesterol (5-40) mg/dL HDL Cholesterol (40 - ) mg/dL TSH 1.24 (0.358-3.74) uIU/mL POC Glucose (70-110) mg/dL 02/22/19 02/22/19 Range/Units 10:03 10:03 WBC 8.6 (4.4-11.0) K/mm3 RBC 4.98 (4.6-6.2) M/mm3 Hgb 15.1 (13.0-16.5) g/dL Hct 45.8 (40-54) % MCV 92.0 (80-94) fL MCH 30.3 (27.0-32.0) pg MCHC 33.0 (32-36) g/dL RDW Std Deviation 47.0 H (35.1-43.9) fl RDW Coeff of Jc 13.8 (11.6-14.6) % Plt Count 156 (150-450) K/mm3 MPV 10.1 (6.2-12.0) fl Immature Gran % (Auto) 0.500 (0.0-0.9) % Neut % (Auto) 72.0 H (47-70) % Lymph % (Auto) 16.5 L (19-41) % Walsh % (Auto) 6.7 (0-10) % Eos % (Auto) 3.3 (0-5) % Baso % (Auto) 1.0 (0-1) % Absolute Neuts (auto) 6.2 (2.0-7.7) X10^3/uL Absolute Lymphs (auto) 1.42 (0.83-4.51) X10^3/uL Nucleated RBC % 0 (0-5) % PT 15.3 H (11.7-14.9) SECONDS INR 1.2 APTT 35.2 (24.1-36.2) Seconds Sodium (136-145) mmol/L Potassium (3.5-5.1) mmol/L Chloride (98-107) mmol/L Carbon Dioxide (21.0-32.0) mmol/L Anion Gap (5-15) BUN (7-18) mg/dL Creatinine (0.70-1.30) mg/dL Estim Creat Clear Calc ml/min Est GFR (MDRD) Af Amer (>60) mL/min Est GFR (MDRD) Non-Af (>60) mL/min BUN/Creatinine Ratio (10-20) RATIO Glucose (74-106) mg/dL Hemoglobin A1c (4.2-6.3) % Calcium (8.5-10.1) mg/dL Magnesium (1.6-2.6) mg/dL Total Bilirubin (0.20-1.00) mg/dL Direct Bilirubin (0.00-0.30) mg/dL AST (15-37) U/L ALT (16-61) U/L Alkaline Phosphatase (45-117) U/L Troponin I (<0.045) ng/mL Total Protein (6.4-8.2) g/dL Albumin (3.2-5.0) g/dL Globulin (2.2-4.2) g/dL Triglycerides ( - 199) mg/dL Cholesterol (200) mg/dL LDL Cholesterol (0-130) mg/dL VLDL Cholesterol (5-40) mg/dL HDL Cholesterol (40 - ) mg/dL TSH (0.358-3.74) uIU/mL POC Glucose (70-110) mg/dL Dr. Reagan Mondragon-neurology Dr. Steve Fitzgerald-pulmonary medicine Operations: None Procedures: 2-D Echocardiogram - Interpretation Summary Normal LV size. Moderate concentric left ventricular hypertrophy. Left ventricular systolic function is normal. The estimated ejection fraction is 55 %. Stage 3 diastolic dysfunction. Mildly dilated right ventricle. Mild global right ventricular systolic dysfunction. Bubble contrast study negative for right to left interatrial shunt. Summary of Care Provided: The patient is a 73 year old M with a PMH of HTN, CAD, COPD, tobacco dependence, DM II, morbid obesity and atrial fibrillation on chronic anticoagulation with Eliquis who presented to the emergency department at [facility] on 02/22/2019 complaining of pain associated with numbness in the left forearm below the elbow and mild dysesthesia in the left lateral calf. He awoke on 02/22/2019 with pain in the left forearm distal to the elbow. He later went on to develop numbness in his left forearm and hand and stated all 5 fingers were numb. He has awoken in the past with numbness in his hands but this rarely happens now. He denied arm or leg weakness and also denied slurred speech, trouble with word finding, sudden change in vision or disequilibrium. He was told by his primary care physician to come to the emergency department and a stroke alert was called. A noncontrasted CT brain was negative for acute findings and the NIH in the emergency department was 1. [facility] tele-stroke was consulted and TPA was not recommended because he was outside the window and he had an NIH score of 1. Vital signs at presentation to the emergency department were temperature 97.7, pulse rate 91, blood pressure 145/85, respiratory rate 25 and he was 91% saturated on room air. CBC was unremarkable. CMP was remarkable for an elevated glucose at 205 and a hemoglobin A1c of 8.6. Troponin was less than 0.015. TSH was normal. EKG showed atrial fibrillation with a right bundle branch block and a left anterior hemiblock. There were nonspecific ST and T wave changes and the EKG was overall unchanged from an EKG done in 2017. The chest x-ray was an AP chest and was a very poor study done in expiration. No definitive diagnoses could be made about the CXR due to the poor quality. A CTA of the head and neck was done and showed calcific plaques at the origins of the right and left internal carotid artery causing approximately 50 to 69% stenosis bilaterally. He was given aspirin in the emergency department and admitted to a monitored bed on PCU with TIA vs ischemic CVA. The stroke protocol was initiated. He was seen by Dr. Mondragon who felt he had a probable TIA versus a right MCA/right thalamic stroke. He recommended MRI, continued statin, transthoracic echocardiogram, permissive hypertension for 24 hours, smoking cessation. Serial cardiac enzymes were negative. Echocardiogram showed moderate concentric left ventricular hypertrophy with normal left ventricular systolic function and an estimated ejection fraction of 55%. There was stage III diastolic dysfunction, a mildly dilated right ventricle and mild global right ventricular systolic dysfunction. Bubble contrast study was negative for right to left shunt. MRI of the brain showed no evidence of acute CVA. There were minor periventricular white matter ischemic changes. A carotid duplex was done due to the reported 50 to 60% stenosis of the bilateral carotid arteries and the ultrasound showed less than 50% stenosis in the right extracranial internal carotid artery and less than 50% stenosis in the left extracranial internal carotid artery. The right vertebral artery was not well visualized. There was flow within the left vertebral artery which was antegrade. Telemetry showed atrial fibrillation with controlled ventricular response and no significant ventricular ectopy during his admission. The numbness in his left arm improved significantly and he complained of only some numbness in the fingertips. He continued to complain of pain in his left arm and upon physical examination was noted to have swelling and erythema in the left antecubital fossa. He had been bitten by an insect and the area was very itchy. He was given a dose of Ancef 1 g in the hospital and was discharged on Duricef 1000 mg twice daily for 7 days of treatment. A overnight trending pulse ox was ordered but, there was no data obtained possibly secondary to equipment failure. The patient has been unable to sleep in bed lying down for quite some time because he gets markedly short of breath. He sleeps best when he is sitting in a recliner with his oxygen on. He does not consistently wear the oxygen at night. Prior to discharge she was seen in consultation by Dr. Steve Fitzgerald from pulmonary medicine who recommends follow-up in the pulmonary clinic in 1 to 2 weeks with the nurse practitioner to arrange repeat PFTs and a sleep study. It is unlikely that the AF will be able to be converted to NSR and he will stay in NSR unless the sleep apnea is treated and he is no longer getting hypoxic while sleeping. Smoking cessation was recommended and he received smoking cessation counseling by multiple physicians and nursing staff while in the hospital. He was given a prescription for a 21 mg NicoDerm patch will wear this for 4 weeks. It should then be tapered to a 14 mg patch for 2 weeks and then a 7 mg patch for 2 weeks. As was a shared decision and he will decide whether he is going to fill the prescription or not. He will follow-up with Dr. Jay castaneda within the next week and will follow up in [place] with Dr. Mendez as previously arranged. PHYSICAL EXAM: GENERAL: alert, oriented X 3, Cooperative, NAD, appears older than stated age ORAL: moist mucosa, no mucosal lesions NECK: No JVD, supple, trachea midline, no carotid bruits LUNGS: CTA, symmetric chest expansion, markedly diminished breath sounds throughout HEART: Irregular rhythm with controlled ventricular response, Normal S1 and S2, no rub, no gallop, soft systolic murmur at the second right intercostal space ABDOMEN: soft, NT, ND, BS present, no guarding with palpation, obese EXTREMITIES: edema, no cyanosis, no calf tenderness, stasis dermatitis with dry falkey skin BL. Not using any compressions and not elevating his legs at home SKIN: No rashes, no breakdown, there is erythema, increased warmth to touch and some swelling in the L antecubital fossa, no openings in the skin and no purulent DC. NEUROLOGIC: subjective paresthesias of the tips of the fingers on the left hand with no other focal neurologic findings. PSYCH: appropriate, normal affect, pleasant This note was generated with [employer] dictation software. It may contain incorrect words, spelling, and punctuation that were not noted in checking the note before signing. [] Patient Problems: Active and Suspected Problems (Last Reviewed 02/22/19 @ 17:53 by Mary Calderón DO) Obstructive sleep apnea (Suspected) Paresthesia of left arm and leg (Acute) TIA (transient ischemic attack) (Acute) - Physical Exam Vitals/I&O's: Vital Signs Temp Pulse Resp BP Pulse Ox 97.7 F L 84 19 H 144/77 H 93 02/23/19 05:53 02/23/19 09:58 02/23/19 07:25 02/23/19 05:53 02/23/19 07:45 Oxygen Flow Rate (L/min) 2 Oxygen Delivery Method Room Air Weight: 271 lb 2.697 oz Body Mass Index (BMI) 38.9 Finger Stick Blood Glucose 189 Intake and Output for Last 24 Hours 02/21/19 02/22/19 02/23/19 23:59 23:59 23:59 Intake Total 1886.67 / 1886.67 818.33 / 818.33 Balance 1886.67 / 1886.67 818.33 / 818.33 Laboratory Results 02/22/19 10:03: Magnesium 1.7, Total Bilirubin 0.30, Direct Bilirubin 0.11, AST 33, ALT 39, Alkaline Phosphatase 114, Total Protein 7.5, Albumin 3.2, Globulin 4.3 H, TSH 1.24 02/22/19 10:03: Hemoglobin A1c 8.6 H 02/22/19 14:10: Troponin I < 0.015 02/22/19 17:46: POC Glucose 150 H 02/22/19 17:57: Troponin I < 0.015 02/22/19 19:54: Troponin I < 0.015 02/22/19 21:32: POC Glucose 198 H 02/23/19 05:55: Triglycerides 235 H, Cholesterol 113, LDL Cholesterol 38, VLDL Cholesterol 47 H, HDL Cholesterol 28 L 02/23/19 06:47: POC Glucose 185 H 02/23/19 10:05: POC Glucose 279 H Current Medications Acetaminophen (Tylenol) 650 mg PO Q4H PRN PRN PRN Reason: Headache/Temp>99.6F Last Admin: 02/22/19 21:28 Dose: 650 mg Documented by: Albuterol Sulfate (Ventolin Aerosols) 2.5 mg INHALATION Q2H PRN PRN PRN Reason: SOB/Wheezing Albuterol Sulfate (Ventolin Aerosols) 2.5 mg INHALATION Q6HWA.RT [facility] Last Admin: 02/23/19 06:58 Dose: 2.5 mg Documented by: Amiodarone HCl (Cordarone) 200 mg PO DAILY [facility] Last Admin: 02/23/19 09:57 Dose: 200 mg Documented by: Apixaban (Eliquis) 5 mg PO BID [facility] Last Admin: 02/23/19 09:52 Dose: 5 mg Documented by: Aspirin (Aspirin, Baby) 81 mg PO DAILY@0800 [facility] Last Admin: 02/23/19 09:52 Dose: 81 mg Documented by: Atorvastatin Calcium (Lipitor) 80 mg PO QHS [facility] Last Admin: 02/22/19 21:19 Dose: Not Given Documented by: Budesonide (Pulmicort Aerosol) 0.5 mg INHALATION Q12H.RT [facility] Last Admin: 02/23/19 06:58 Dose: 0.5 mg Documented by: Dextrose (D50w Syringe) 0 gm IV X1 PRN; Protocol PRN Reason: Hypoglycemia Furosemide (Lasix) 120 mg PO DAILY PRN PRN Reason: Swelling Glipizide (Glucotrol Xl) 10 mg PO DAILY@0800 [facility] Last Admin: 02/23/19 09:57 Dose: 10 mg Documented by: Glucagon () 1 mg IM .X1 PRN PRN Reason: Hypoglycemia Cefazolin Sodium () 1 gm in 50 mls @ 100 mls/hr IV Q8 [facility] Insulin Glargine (Lantus (Bkc)) 30 units SC DAILY [facility] Last Admin: 02/23/19 09:59 Dose: 30 u Documented by: Metoprolol Succinate (Toprol Xl (Beta Lopez)) 25 mg PO DAILY [facility] Last Admin: 02/23/19 09:58 Dose: 25 mg Documented by: Multi-Ingredient Cream (Eucerin) 1 applic TOPICAL QHS [facility]; Protocol Last Admin: 02/22/19 21:22 Dose: 1 applic Documented by: Nicotine (Nicoderm Cq (Pbkc)) 21 mg TRANSDERM. DAILY [facility] Last Admin: 02/23/19 09:52 Dose: Not Given Documented by: Nitroglycerin (Nitrostat) 0.4 mg SUBLINGUAL Q5M PRN PRN Reason: ANGINA Ondansetron HCl (Zofran) 4 mg IV Q8H PRN PRN PRN Reason: NAUSEA/VOMITING Pantoprazole Sodium (Protonix) 40 mg PO DAILY [facility] Last Admin: 02/23/19 09:52 Dose: Not Given Documented by: Sodium Chloride () 10 - 40 ml IV UD PRN PRN Reason: SALINE FLUSH Discharge Activity: Return to Normal Activity Keep extremity elevated above heart level: Legs Call your doctor if you observe: Fever of 101 or Higher, Shortness of breath, Dizziness, Fainting spells, Chest pain Home Medications: Medications to take at Discharge Aspirin [Aspirin, Baby] 81 mg PO DAILY@0800 08/30/15 Rosuvastatin Calcium [Crestor] 40 mg PO DAILY 08/30/15 Albuterol Aerosols [Ventolin Aerosols] 2.5 mg INHALATION Q4H PRN PRN 10/15/15 Lansoprazole [Prevacid] 30 mg PO DAILY 12/18/16 fluticasone furoate 100 mcg-vilanterol 25 mcg/dose inhalation powder 1 inh INHALATION Q24H 04/18/17 nitroglycerin 0.4 mg sublingual tablet 0.4 mg SUBLINGUAL Q5-15M PRN 04/18/17 Apixaban [Eliquis] 5 mg PO BID 02/04/18 Amiodarone HCl 200 mg PO DAILY 02/22/19 Furosemide [Lasix] 120 mg PO DAILY PRN 02/22/19 Glipizide [Glipizide ER] 10 mg PO DAILY 02/22/19 Insulin Degludec [Tresiba Flextouch U-200] 30 units SQ DAILY 02/22/19 Insulin Lispro [Humalog KwikPen] 4 units SQ DAILY PRN 02/22/19 Metoprolol Succinate 25 mg PO DAILY 02/22/19 Potassium Chloride 10 meq PO DAILY PRN 02/22/19 Sitagliptin Phos/Metformin HCl [Janumet 50-1,000 mg Tablet] 1 tab PO BID 02/22/19 Nicotine [Nicoderm Cq ([facility])] 21 mg TRANSDERM. DAILY #28 patch 02/23/19 Following Prescrptions Were Given to Patient: Nicotine [Nicoderm Cq ([facility])] 21 mg TRANSDERM. DAILY #28 patch Prescription Printed Primary Care Physician: Gonsalo Saenz MD [Primary Care Provider] - Please follow up with your Primary Care Physician in: 1 week Please Follow Up With: Victoria Amezcua - pulmonary clinic When: within the next 2 weeks Patient Instructions: What Is a TIA?, What Are Snoring and Sleep Apnea?, Continuous Positive Air Pressure (CPAP) Disposition: Home Minutes spent on discharge:: 40 Patient Condition:: Stable Medical Necessity - Tobacco Use Smoking Status: Current every day smoker Tobacco Use: Cigarettes Meaningful Use Info Meaningful Use Diagnoses (Choose all that apply): None applicable Code Visit OBSV E&M: 84885 Observation care discharge
--- NOTE | 2019-02-23 12:26 | PCM.PN.NEU ---
Patient Problems: Active and Suspected Problems (Last Reviewed 02/22/19 @ 17:53 by Mary Calderón DO) Obstructive sleep apnea (Suspected) Paresthesia of left arm and leg (Acute) TIA (transient ischemic attack) (Acute) Subjective: No issues overnight. Care discussed with the hospitalist team. Per patient his left-sided numbness and paresthesias have resolved. - Physical Exam Vitals/I&O's: Vital Signs Temp Pulse Resp BP Pulse Ox 97.7 F L 84 19 H 144/77 H 93 02/23/19 05:53 02/23/19 09:58 02/23/19 07:25 02/23/19 05:53 02/23/19 07:45 Oxygen Flow Rate (L/min) 2 Oxygen Delivery Method Room Air Weight: 123 kg Body Mass Index (BMI) 38.9 Finger Stick Blood Glucose 189 Intake and Output for Last 24 Hours 02/21/19 02/22/19 02/23/19 23:59 23:59 23:59 Intake Total 1886.67 / 1886.67 818.33 / 818.33 Balance 1886.67 / 1886.67 818.33 / 818.33 General: Alert HEENT: Normocephalic Neck: Supple Lungs: Normal air movement Cardiovascular: Normal S1, Normal S2 Abdomen: Bowel Sounds Present Extremities: No cyanosis Neurological: - - Conscious, alert, AOA x3, CN II to XII grossly intact, power 5/5 both upper and lower extremities, plantars B/L flexor, no pronator drift, no sensory loss, no cerebellar signs, gait deferred, reflexes + B/L B/S/T/K/A, No NR, fundus not visualized, NIHSS 0 at present Psych/Mental Status: Normal Affect Laboratory Results 02/22/19 10:03: Magnesium 1.7, Total Bilirubin 0.30, Direct Bilirubin 0.11, AST 33, ALT 39, Alkaline Phosphatase 114, Total Protein 7.5, Albumin 3.2, Globulin 4.3 H, TSH 1.24 02/22/19 10:03: Hemoglobin A1c 8.6 H 02/22/19 14:10: Troponin I < 0.015 02/22/19 17:46: POC Glucose 150 H 02/22/19 17:57: Troponin I < 0.015 02/22/19 19:54: Troponin I < 0.015 02/22/19 21:32: POC Glucose 198 H 02/23/19 05:55: Triglycerides 235 H, Cholesterol 113, LDL Cholesterol 38, VLDL Cholesterol 47 H, HDL Cholesterol 28 L 02/23/19 06:47: POC Glucose 185 H 02/23/19 10:05: POC Glucose 279 H Current Medications Acetaminophen (Tylenol) 650 mg PO Q4H PRN PRN PRN Reason: Headache/Temp>99.6F Last Admin: 02/22/19 21:28 Dose: 650 mg Documented by: Albuterol Sulfate (Ventolin Aerosols) 2.5 mg INHALATION Q2H PRN PRN PRN Reason: SOB/Wheezing Albuterol Sulfate (Ventolin Aerosols) 2.5 mg INHALATION Q6HWA.RT [facility] Last Admin: 02/23/19 06:58 Dose: 2.5 mg Documented by: Amiodarone HCl (Cordarone) 200 mg PO DAILY [facility] Last Admin: 02/23/19 09:57 Dose: 200 mg Documented by: Apixaban (Eliquis) 5 mg PO BID [facility] Last Admin: 02/23/19 09:52 Dose: 5 mg Documented by: Aspirin (Aspirin, Baby) 81 mg PO DAILY@0800 [facility] Last Admin: 02/23/19 09:52 Dose: 81 mg Documented by: Atorvastatin Calcium (Lipitor) 80 mg PO QHS [facility] Last Admin: 02/22/19 21:19 Dose: Not Given Documented by: Budesonide (Pulmicort Aerosol) 0.5 mg INHALATION Q12H.RT [facility] Last Admin: 02/23/19 06:58 Dose: 0.5 mg Documented by: Dextrose (D50w Syringe) 0 gm IV X1 PRN; Protocol PRN Reason: Hypoglycemia Furosemide (Lasix) 120 mg PO DAILY PRN PRN Reason: Swelling Glipizide (Glucotrol Xl) 10 mg PO DAILY@0800 [facility] Last Admin: 02/23/19 09:57 Dose: 10 mg Documented by: Glucagon () 1 mg IM .X1 PRN PRN Reason: Hypoglycemia Cefazolin Sodium () 1 gm in 50 mls @ 100 mls/hr IV Q8 [facility] Insulin Glargine (Lantus (Bkc)) 30 units SC DAILY [facility] Last Admin: 02/23/19 09:59 Dose: 30 u Documented by: Metoprolol Succinate (Toprol Xl (Beta Lopez)) 25 mg PO DAILY [facility] Last Admin: 02/23/19 09:58 Dose: 25 mg Documented by: Multi-Ingredient Cream (Eucerin) 1 applic TOPICAL QHS [facility]; Protocol Last Admin: 02/22/19 21:22 Dose: 1 applic Documented by: Nicotine (Nicoderm Cq (Pbkc)) 21 mg TRANSDERM. DAILY [facility] Last Admin: 02/23/19 09:52 Dose: Not Given Documented by: Nitroglycerin (Nitrostat) 0.4 mg SUBLINGUAL Q5M PRN PRN Reason: ANGINA Ondansetron HCl (Zofran) 4 mg IV Q8H PRN PRN PRN Reason: NAUSEA/VOMITING Pantoprazole Sodium (Protonix) 40 mg PO DAILY [facility] Last Admin: 02/23/19 09:52 Dose: Not Given Documented by: Sodium Chloride () 10 - 40 ml IV UD PRN PRN Reason: SALINE FLUSH STROKE Vital Signs/Narrative: Vital Signs Pulse 02/23/19 09:58 84 Diagnostic/Tx/Re-eval - Rhythm Strip Rhythm Strip: A-fib Rate: 74 Ectopy: None Medical Necessity - Tobacco Use Smoking Status: Current every day smoker Tobacco Use: Cigarettes Assessment/Plan All Active Problems (Last Reviewed 02/22/19 @ 17:53 by Mary Calderón DO) Paresthesia of left arm and leg (Acute) TIA (transient ischemic attack) (Acute) ELIZABETH (acute kidney injury) (Resolved) Acute respiratory failure with hypoxia (Resolved) History of mandibular surgery (Resolved) Hypokalemia (Resolved) Hyponatremia (Resolved) The patient is a 73 year old M HTN, HLD, DM, A. fib on Eliquis, CAD status post stents, COPD, tobacco abuse, morbid obesity admitted with left-sided paresthesias and numbness. Per patient he woke up this morning 02/22/2019 and had left arm pain, later started having left face and arm numbness along with paresthesias in the left leg at around 9 AM this morning, on admission to the ED his NIHSS was 1, [facility] telestroke was consulted, patient was not a TPA candidate due to low NIH stroke scale, patient had cardioversion about 1 week ago for A. fib, his Eliquis was intermittently stopped last week but off late he has been on Eliquis compliantly per patient. Per patient he also takes aspirin at baseline. He denies any focal motor weakness, headache, dizziness, speech disturbances or visual disturbances. Per patient lives with family, does not use cane or walker to ambulate, denies any frequent falls, does drive and does not need any assistance for ADLs. CTA head/neck reported to show bilateral ICA 50 to 69% stenosis. Impression Probable TIA Bilateral carotid stenosis <50% B/L ICA Plan -On Aspirin 81 mg p.o. once daily and Eliquis 5 mg p.o. twice daily. Bleeding risk discussed in detail with the patient -Lipitor 40 mg p.o. nightly -MRI brain -CT head/neck reported to show 50 to 69% stenosis in bilateral ICA -BqP3x-o, LDL-38 -TTE-EF 55%, left atrium is mildly enlarged -Carotid ultrasound?bilateral ICA less than 50% stenosis -Patient counseled to stop smoking -Stroke risk factors discussed and stroke education provided -PT/OT -GI/DVT prophylaxis -Fall precautions -Further medical management per hospitalist team -Please call with questions if any -Follow-up with neurology in 4 weeks -Thank you for allowing us to participate in patient's care and management This note has been generated using [employer] dictation software. It may contain incorrect words, spellings and punctuation that were not noted in the review of the note prior to signing
--- NOTE | 2019-02-24 15:13 | CASEMGMT ---
RN CM DC PHONE CALL DC DATE: 02.24.19 DC Disposition: Home Diagnosis on Discharge: TIA LACE/STRATA: 12/22 Intro role of CM to patient via phone. Pt states he has no questions re: dc instructions, f/u or prescriptions. No care improvement suggestions given. Annette AGN RN ACM
== END 2019-02-23 13:40 | disposition home or self-care (01) | DRG 69 ==
LOC: ED 12:52 → PCU 13:41
PROVIDERS: Admitting Provider Internal Medicine; Emergency Provider Emergency Medicine; Family Provider Family Medicine; PCP Family Medicine; Visit Provider Internal Medicine
DX: G45.9 Transient cerebral ischemic attack, unspecified (principal); L03.114 Cellulitis of left upper limb; E66.01 Morbid (severe) obesity due to excess calories; G47.33 Obstructive sleep apnea (adult) (pediatric); R20.2 Paresthesia of skin; I65.23 Occlusion and stenosis of bilateral carotid arteries; I87.2 Venous insufficiency (chronic) (peripheral); J44.9 Chronic obstructive pulmonary disease, unspecified; E11.65 Type 2 diabetes mellitus with hyperglycemia; I48.91 Unspecified atrial fibrillation; I25.10 Atherosclerotic heart disease of native coronary artery without angina pectoris; R29.701 NIHSS score 1; F17.210 Nicotine dependence, cigarettes, uncomplicated; Z79.01 Long term (current) use of anticoagulants; Z95.5 Presence of coronary angioplasty implant and graft; Z79.82 Long term (current) use of aspirin; Z68.38 Body mass index [BMI] 38.0-38.9, adult; I27.20 Pulmonary hypertension, unspecified; Z79.4 Long term (current) use of insulin
CPT/HCPCS: 36415; 70450; 70496; 70498; 70551; 71045; 80048; 80061; 80076; 82962; 83036; 83735; 84443; 84484; 85025; 85610; 85730; 93005; 93306; 93880; 94640; 94762; 97162; 97166; 97802; 99285; J7030; Q9957; Q9967; A4216

== ENCOUNTER 2019-04-16 14:00 | Outpatient (RCR) | payer MEDICARE, OTHER, SELFPAY ==
[2019-02-22 16:17] VITALS: BMI 38.9
--- NOTE | 2019-04-01 18:59 | HP.PTEVAL ---
Patient's Visit Information RAY ALONSO is a 73 year old M referred to Physical Therapy by Gonsalo Saenz MD with a diagnosis of LBP without sciatica. Date of Evaluation: 04/01/19 Physical Therapist: Yan Garduno, PT, ATC - Visit Plan Frequency: 1-2x /Week Duration: 4 Weeks Plan: Postural edu, SKTC/DKTC, core strengthening, nustep, HEP - Subjective Findings: Pt reports he has had LBP now for one month. Pt reports he was bending over lifting heavy objects when he experienced LBP. Pt reports the pain extendis into his R gluteal region. Pt notes he can only sleep for 2 hours until waking up from back pain. Pt reports prolonged ambulation increases his pain. Pt notes sitting down decreases his pain. Pt notes no L LE radiculopathy at this time. pt reports he had LBP approximately 1 year ago of similar nature. Pt reports he is unable to lift objects such as carrying his trash out now secondary topain. 4/10 pain at rest, 10/10 pain at worst - Pain LBP Pain Intensity (Out of 10): 4 Pain Intensity Range: 10 - Objective Neuro: B LE sensation is WNL to light touch. MMT: B LE's 5/5 throughout. ROM: Pt is severely limited with extension. Pt is WNL with flexion. B SB is min limited. Special testing: SKTC/DKTC stretching helped to decrease pain. - Goals Goal 1:: Decrease LBP x 50% to aid with sleep Goal Time Frame: 2-4 Weeks Goal 2:: Increase L/S ROM x 1 grade to aid with IADL's Goal Time Frame: 2-4 Weeks Goal 3:: I with HEP Goal Time Frame: 2-4 Weeks - Rehabilitation Potential Physical Therapy Diagnosis: Pt has LBP, limited ROM, and difficulty with prolonged ambulation secondary to deg changes in L/S Rehabilitation Potential: Good - Anticipated Interventions Patient/Client Instruction: Educate patient on: Condition, Plan of Care For the Purpose of:: To improve self management Therapeutic Exercise to Include: Strength training, Endurance training, Body mechanics, Postural training, Flexibilty training, Dynamic Lumbar Stabilization For the Purpose of:: To decrease pain, To increase ROM, To improve muscle performance and motor function Thermo therapy (hot pack): Yes For the Purpose of:: To decrease pain Thank you for the opportunity to evaluate your patient. For Medicare and Medicare HMO plans, please review the plan of care and approve it. It will need to be FAXED BACK to us at [phone] for Medicare purposes. For Medicare only, by signing this I certify the plan of care. Please let me know if there are questions or concerns regarding this plan of care. Physician Signature: Date:
--- NOTE | 2019-04-16 14:48 | HP.PTDCSUM ---
HP - PT D/C Summary It has been my pleasure to treat RAY ALONSO under orders from Gonsalo Saenz MD, for the diagnosis of LBP without sciatica for a total of 3 visit(s). Discharge Date: Please see the following information for a summary of their discharge status. - Subjective Subjective: I am sore today - Pain LBP Pain Intensity (Out of 10): 8 - Objective Objective/Function: Pt is now I with HEP - Goals Goal 1:: Decrease LBP x 50% to aid with sleep Goal Progress: Progressing Goal 2:: Increase L/S ROM x 1 grade to aid with IADL's Goal Progress: Progressing Goal 3:: I with HEP Goal Progress: Goal Met - Plan Plan: Discharge - D/C Information If there are questions or concerns regarding this patient's physical therapy, please feel free to call me at [phone]. Thank you for the referral of this patient. Sincerely, Yan Garduno, PT, ATC
== END 2019-04-16 19:00 | disposition home or self-care (01) ==
LOC: PT 14:00
PROVIDERS: Family Provider Family Medicine; PCP Family Medicine; Referring Provider Family Medicine; Visit Provider Family Medicine
DX: M54.5 Low back pain (principal)
CPT/HCPCS: 97110; 97161

== ENCOUNTER 2019-04-22 09:04 | Inpatient (IN) | payer MEDICARE, OTHER, SELFPAY ==
[2019-02-22 16:17] VITALS: BMI 38.9
[2019-04-22] VITALS (16 sets, daily range): BP systolic 122–159; BP diastolic 63–102; PULSE 85–118; RESP 18–24; TEMP 36.4–37.1; O2SAT 93–99; BMI 39.2; BMI 37.4; BMI 37.5
--- NOTE | 2019-04-22 09:18 | RAD_ITS ---
STUDY: X-RAY CHEST REASON FOR EXAM: Male, 73 years old. SOB X 3 DAYS, PRODUCTIVE COUGH TECHNIQUE: Single portable frontal chest. COMPARISON: February 22, 2019. FINDINGS: Again seen is elevation the right hemidiaphragm of unknown etiology, or clinical significance. There is stable, lateral midlung and lower lobe pleural thickening versus layering pleural fluid. Again seen is stable prominence of the cardiomediastinal silhouette size with mild central vascular congestion. Calcified plaque involves the thoracic aortic arch with tortuosity of the descending thoracic aorta. There is no pneumothorax. There is no evident acute osseous abnormality. There is no demonstrated abnormality of the visualized soft tissue structures of the upper abdomen. RAD/Chest 1 View (Portable) IMPRESSION: Stable exam. Probable stable bilateral pleural effusions. Cardiomegaly and mild central vascular congestion. Atherosclerotic peripheral vascular disease and senescent changes of the descending thoracic aorta. No evident pneumothorax. Electronically Signed: Cipriano Villegas MD at 10:10 EST , Service support ,
--- NOTE | 2019-04-22 09:19 | EKG12_ITS ---
Test Reason : SOB Blood Pressure : / mmHG Vent. Rate : 097 BPM Atrial Rate : 131 BPM P-R Int : 000 ms QRS Dur : 138 ms QT Int : 406 ms P-R-T Axes : 000 -59 -07 degrees QTc Int : 515 ms Atrial fibrillation Right bundle branch block Left anterior fascicular block Bifascicular block Inferior infarct , age undetermined Abnormal ECG Confirmed by SAMUEL KRAUSE, ES ([id number]), film editor supervisor TERESA FRANCO ([id number]) on 04/26/2019 12:27:11 PM Referred By: MIKE Confirmed By:ES BAKER MD
--- NOTE | 2019-04-22 09:23 | ED.VISSUMM ---
- ER Visit Summary Date of Service: 04/22/19 Chief Complaint: Shortness of breath History of Present Illness: The patient is a 73 M presenting with shortness of breath that has been worsening over the past 3 days. He states he gets very short of breath when he walks around. He denies chest pain. He has had increasing lower extremity swelling. He is on Lasix and has not had any recent changes in medications. He has a history of atrial fibrillation and is on Eliquis. He has history of COPD and has tried breathing treatments at home. He did receive a flu shot this year. He denies fever. He has cough productive of sputum. He is a smoker. Denies other complaints. Physical Examination: Vitals are stable. Patient is afebrile. 94% on 2 L. alert no acute distress. HEENT exam is unremarkable. Neck is supple. Lungs are wheezing bilaterally. Heart is irregularly irregular Abdomen is soft nontender nondistended. Extremities symmetric edema Skin is warm and dry. No focal neurologic deficit. Remainder of exam is unremarkable. Emergency Department Course and Treatment: EKG is A. fib rate of 97, right bundle branch block. CBC, chemistries unremarkable other than glucose 152, BUN 20. Troponin is negative. Influenza negative. Chest x-ray shows probable stable bilateral pleural effusions. Cardiomegaly and mild central vascular congestion. Atherosclerotic peripheral vascular disease and senescent changes of the descending thoracic aorta. No evident pneumothorax. With attempted ambulation patient became extremely short of breath and his pulse ox dropped to 89% with a few steps. He has continued wheezing on reexam. He was given Lasix IV. Discussed with the hospitalist for admission. Disposition: Admission Impression: CHF exacerbation This note was generated with [employer] dictation software. It may contain incorrect words, spelling, and punctuation that were not noted in review of the chart prior to signing ED Disposition - Plan for ED Patient: Referrals: Gonsalo Saenz MD [Primary Care Provider] -
[2019-04-22 09:28] LABS: Absolute Lymphocyte Count 0.95 X10^3/uL (0.83-4.51); Absolute Neutrophil Count 7.6 X10^3/uL (2.0-7.7); Basophil# 0.06 X10^3/uL; Basophil% 0.6 % (0-1); Eosinophil# 0.12 X10^3/uL; Eosinophils% 1.3 % (0-5); Hematocrit 42.7 % (40-54); Hemoglobin 14.1 g/dL (13.0-16.5); Lymphocyte # 0.95 X10^3/ul (4.0); Mean Corpuscular Hgb 30.5 pg (27.0-32.0); Mean Corpuscular Volume 92.2 fL (80-94); Mean Platelet Vol. 9.9 fl (6.2-12.0); Monocyte# 0.71 X10^3/uL; Monocyte% 7.5 % (0-10); NRBC Flagged by Analyzer 0 % (0-5); Neutrophil # 7.64 X10^3/uL (2.7-7.7); Neutrophil % 80.3 % (47-70); Platelet Count 153 K/mm3 (150-450); RBC Distribution Width CV 14.6 % (11.6-14.6); RBC Distribution Width SD 49.4 fl (35.1-43.9); Red Blood Count 4.63 M/mm3 (4.6-6.2); White Blood Count 9.5 K/mm3 (4.4-11.0)
[2019-04-22 09:43] LABS: Anion Gap 5 (5-15); BUN 20 mg/dL (7-18); BUN/Creat Ratio 16.4 RATIO (10-20); Calcium,Total 9.3 mg/dL (8.5-10.1); Chloride 101 mmol/L (98-107); Creatinine, Serum 1.22 mg/dL (0.70-1.30); EST Glomerular Filtration Rate 62 mL/min (>60); Est Glom Filt Rate - Afr Amer 75 mL/min (>60); Estimated Creatinine Clearance 56.58 ml/min; Glucose 152 mg/dL (74-106); Potassium 3.8 mmol/L (3.5-5.1); Sodium Level 138 mmol/L (136-145)
[2019-04-22] MEDS: Ipratropium/Albuterol Sulfate 3 ML AMPUL.NEB INHALATION ×3 (09:50→23:37)
[2019-04-22 10:25] LABS: Lactic Acid 2.1 mmol/L (0.4-1.9)
--- NOTE | 2019-04-22 11:25 | NURSING ---
DR DALTON MCKEON
--- NOTE | 2019-04-22 11:36 | NURSING ---
PCU CHF EXAC DALTON
[2019-04-22] MEDS: Furosemide 40 MG/4 ML Vial IV ×3 (11:40→22:21)
[2019-04-22 13:48] LABS: Reflex Lactate? Y
[2019-04-22] MEDS: 0.9% Saline Lock 10 ML Syringe IV ×2 (14:44→22:23)
[2019-04-22] MEDS: Azithromycin 250 MG Tablet 500 MG PO (16:04)
[2019-04-22 16:30] LABS: Bedside Glucose 243 mg/dL (70-110)
[2019-04-22] MEDS: Insulin Lispro 100 UNIT/ML INSULN.PEN SC ×2 (16:30→22:23)
[2019-04-22] MEDS: metFORMIN HCl 1,000 MG Tablet 1000 MG PO (16:31)
--- NOTE | 2019-04-22 19:26 | PCM.HP.STD ---
Problem List (1) Shortness of breath Status: Acute History of Present Illness Date of Admission: 04/22/19 Chief Complaint: Shortness of breath The patient is a 73 year old M who was seen in the emergency room at [facility] chief complaint of increased shortness of breath over the past 3 days. Patient has a history of COPD and is supposed to wear continuous oxygen at home but only wears it when he feels he needs it. Patient denies any fevers or chills, he did state he was around some children who had an upper respiratory infection a couple of days ago. Patient complains of a cough with yellow sputum production. Patient denies any chest pain. Work-up in the emergency room included an EKG which showed atrial fib at a rate of 97, CBC was unremarkable, chemistries was remarkable for a glucose of 152 and a BUN of 20. Influenza test was negative in the ER, chest x-ray showed stable bilateral small pleural effusions, there was mild central vascular congestion noted. Patient was ambulated in the emergency room became short of breath and his pulse ox dropped to 89% on 2 L of oxygen. Patient was admitted for acute diastolic CHF, exacerbation of COPD, and acute bacterial bronchitis. Past Medical History Past Medical History (Chronic Problems): Chronic Problems (Last Reviewed 02/22/19 @ 17:53 by Mary Calderón DO) Carotid stenosis, bilateral (Chronic) Less than 50% bilaterally Venous insufficiency of both lower extremities (Chronic) Morbid obesity (Chronic) Left ventricular hypertrophy (Chronic) Grade III diastolic dysfunction (Chronic) Right ventricular dilation (Chronic) History of angioplasty (Chronic) History of back surgery (Chronic) Tobacco abuse (Chronic) Hypersomnia (Chronic) Pulmonary hypertension, mild (Chronic) COPD (chronic obstructive pulmonary disease) (Chronic) Nephrolithiasis (Chronic) Diabetes (Chronic) CAD (coronary artery disease) (Chronic) HTN (hypertension) (Chronic) Tension headache (Chronic) Medical History: Medical History (Last Reviewed 02/22/19 @ 17:53 by Mary Calderón DO) Tobacco abuse (Chronic) Z72.0 Hypersomnia (Chronic) G47.10 Pulmonary hypertension, mild (Chronic) I27.2 COPD (chronic obstructive pulmonary disease) (Chronic) J44.9 Nephrolithiasis (Chronic) Diabetes (Chronic) E11.9 CAD (coronary artery disease) (Chronic) I25.10 HTN (hypertension) (Chronic) I10 Tension headache (Chronic) G44.209 ELIZABETH (acute kidney injury) (Resolved) N17.9 Acute respiratory failure with hypoxia (Resolved) J96.01 Hypokalemia (Resolved) E87.6 Hyponatremia (Resolved) E87.1 Allergies No Known Allergies Allergy (Verified 02/04/18 10:44) Home Medications: Ambulatory Orders Medication Instructions Recorded Aspirin [Aspirin, Baby] 81 mg PO DAILY@0800 08/30/15 Rosuvastatin Calcium [Crestor] 40 mg PO DAILY 08/30/15 Albuterol Aerosols [Ventolin 2.5 mg INHALATION Q4H PRN PRN 10/15/15 Aerosols] Lansoprazole [Prevacid] 30 mg PO DAILY 12/18/16 fluticasone furoate 100 1 inh INHALATION Q24H 04/18/17 mcg-vilanterol 25 mcg/dose inhalation powder nitroglycerin 0.4 mg sublingual 0.4 mg SUBLINGUAL Q5-15M PRN 04/18/17 tablet Apixaban [Eliquis] 5 mg PO BID 02/04/18 Amiodarone HCl 200 mg PO DAILY 02/22/19 Furosemide [Lasix] 120 mg PO DAILY PRN 02/22/19 Glipizide [Glipizide ER] 10 mg PO DAILY 02/22/19 Insulin Degludec [Tresiba 30 units SQ DAILY 02/22/19 Flextouch U-200] Insulin Lispro [Humalog KwikPen] 4 units SQ DAILY PRN 02/22/19 Metoprolol Succinate 25 mg PO DAILY 02/22/19 Potassium Chloride 10 meq PO DAILY PRN 02/22/19 Sitagliptin Phos/Metformin HCl 1 tab PO BID 02/22/19 [Janumet 50-1,000 mg Tablet] Surgical History: Surgical History (Last Reviewed 02/22/19 @ 17:54 by Mary Calderón DO) History of angioplasty (Chronic) Z98.62 History of back surgery (Chronic) Z98.890 History of mandibular surgery (Resolved) Z98.890 Surgical History: angioplasty - 3 stents placed Psychiatric History: No pertinent psych hx Lives: Spouse/ Significant Other Smoking Status: Current every day smoker Tobacco Use: Cigarettes Alcohol: None Drugs: None - *Family History Maternal Family History: Family History (Last Reviewed 02/22/19 @ 17:59 by Mary Calderón DO) Mother Heart disease Dementia Father Heart disease History Items: Dementia Paternal Family History: Family History (Last Reviewed 02/22/19 @ 17:59 by Mary Calderón DO) Mother Heart disease Dementia Father Heart disease History Items: Heart Disease Review of Systems Constitutional: Reports: Fatigue. Denies: Anorexia, Chills, Fever, Night Sweats, Malaise, Weakness, Weight Change Eyes: Denies: Blurred vision, Cataracts, Conjunctivae Inflammation, Double vision, Drainage HEENT: Denies: Difficulty Swallowing, Dysphasia, Ear Pain, Eye Pain, Hearing Changes, Nasal bleeding, Nasal Congestion, Post Nasal Drip Cardiovascular: Reports: Edema. Denies: Chest Pain, Claudication, Chest Pressure, Chest Tightness, Palpitations Respiratory: Reports: Cough, Shortness of Breath, Shortness of breath at rest, Shortness of breath upon exertion, Sputum production. Denies: Hemoptysis Gastrointestinal: Denies: Abdominal Pain, Constipation, Diarrhea, Hematemesis, Hematochezia, Nausea, Melena, Vomiting Genitourinary: Denies: Dysuria, Frequency, Hematuria, Hesitancy, Nocturia, Retention, Urgency Musculoskeletal: Denies: Back Pain, Foot Pain, Hand Pain, Joint Pain, Joint stiffness, Joint swelling, Joint Tenderness Skin: Denies: Dryness, Pruritis, Rash Neurological: Denies: Blurred vision, Double vision, Change in Speech, Slurred speech, Difficulty swallowing, Focal weakness, Headaches, Incoordination, Numbness, Tingling Psychiatric: Denies: Anxiety, Depression, Homicidal Ideations, Suicidal Ideations Endocrine: Denies: Change in Body Habitus, Heat/ Cold Intolerance, Polydipsia, Polyuria Hematologic/ Lymphatic: Denies: Adenopathy, Anemia, Easy Bruising, Easy Bleeding, Petechiae, Purpura VTE Information - Inpt Only VTE Present on Admission: No VTE Mechan Device Prophylaxis: None VTE Pharm Prophylaxis ordered?: No Reason prophylaxis not ordered:: Treatment Not Indicated - Patient on Eliquis Patient Problems: Active and Suspected Problems (Last Reviewed 02/22/19 @ 17:53 by Mary Calderón DO) Shortness of breath (Acute) - Physical Exam Vitals/I&O's: Vital Signs Temp Pulse Resp BP Pulse Ox 98.7 F 85 18 148/78 H 94 04/22/19 16:20 04/22/19 16:20 04/22/19 19:20 04/22/19 16:20 04/22/19 16:20 Oxygen Flow Rate (L/min) 2 Oxygen Delivery Method Nasal Cannula Weight: 121.8 kg Body Mass Index (BMI) 37.4 Finger Stick Blood Glucose 189 Intake and Output for Last 24 Hours 04/20/19 04/21/19 04/22/19 23:59 23:59 23:59 Intake Total 240 / 240 Output Total 200 / 200 Balance 40 / 40 General: Alert, Oriented x3, Cooperative, No apparent distress, Well developed, Well nourished HEENT: Atraumatic, PERRLA, EOMI, Normocephalic Oral: Moist Mucosa Neck: Supple, No JVD, Negative Carotid Bruits, Trachea Midline, Thyroid Normal Size and Texture Lungs: No rales, Diminished - Managed airflow is noted bilaterally, Rhonchi - Bilateral expiratory rhonchi are noted Cardiovascular: No murmurs, PMI Normal, Irregular Rate, No rub noted Abdomen: Bowel Sounds Present, Soft, Non Tender, Non-Distended, Obese Extremities: No clubbing, No cyanosis, Capillary Refill Less than 3 Seconds, Edema - Generalized lower leg edema is noted bilaterally Skin: No rashes, No breakdown Musculoskeletal: No Tenderness to Palpation of Joints or Extremities Neurological: Cranial nerves II-XII grossly intact, Neuro grossly intact, Sensory exam intact to light touch and pain Psych/Mental Status: Normal Affect, Appropriate, Alert and oriented to time, place, person, mood and affect Microbiology Past 72 Hours 04/22/19 09:30 Mucosa - Nasopharyngeal Influenza Types A,B Direct FA (CHRISTIE) - Final Laboratory Results 04/22/19 09:13: WBC 9.5, RBC 4.63, Hgb 14.1, Hct 42.7, MCV 92.2, MCH 30.5, MCHC 33.0, RDW Std Deviation 49.4 H, RDW Coeff of Jc 14.6, Plt Count 153, MPV 9.9, Immature Gran % (Auto) 0.300, Neut % (Auto) 80.3 H, Lymph % (Auto) 10.0 L, [place] % (Auto) 7.5, Eos % (Auto) 1.3, Baso % (Auto) 0.6, Absolute Neuts (auto) 7.6, Absolute Lymphs (auto) 0.95, Nucleated RBC % 0 04/22/19 09:13: Sodium 138, Potassium 3.8, Chloride 101, Carbon Dioxide 32.0, Anion Gap 5, BUN 20 H, Creatinine 1.22, Estim Creat Clear Calc 56.58, Est GFR (MDRD) Af Amer 75, Est GFR (MDRD) Non-Af 62, BUN/Creatinine Ratio 16.4, Glucose 152 H, Calcium 9.3, Troponin I < 0.015 04/22/19 09:40: Lactic Acid 2.1 H* 04/22/19 14:20: Lactic Acid 2.0 04/22/19 16:23: POC Glucose 243 H Current Medications Acetaminophen (Tylenol) 650 mg PO Q6H PRN PRN PRN Reason: Pain Score 1-3/Temp > 100.7 F Albuterol Sulfate (Ventolin Aerosols) 2.5 mg INHALATION Q2H PRN PRN PRN Reason: DYSPNEA Albuterol/Ipratropium (Duoneb) 3 ml INHALATION Q6H.RT [facility] Last Admin: 04/22/19 19:19 Dose: 3 ml Documented by: Amiodarone HCl (Cordarone) 200 mg PO DAILY [facility] Apixaban (Eliquis) 5 mg PO BID [facility] Aspirin (Aspirin, Baby) 81 mg PO DAILY@0800 [facility] Atorvastatin Calcium (Lipitor) 80 mg PO QHS [facility] Azithromycin (Zithromax) 500 mg PO Q24 [facility] Last Admin: 04/22/19 16:04 Dose: 500 mg Documented by: Furosemide (Lasix) 40 mg IV Q12 [facility] Glipizide (Glucotrol Xl) 10 mg PO DAILYCM [facility] Glucagon () 1 mg IM .X1 PRN PRN Reason: Hypoglycemia Dextrose (Dextrose 10%-Water) 250 mls @ 999 mls/hr IV .Q16M PRN; Protocol PRN Reason: HYPOGLYCEMIA Sodium Chloride () 250 mls @ 15 mls/hr IV .[id number] PRN PRN Reason: Saline Flush Insulin Glargine (Lantus ([facility])) 30 units SC DAILY [facility] Insulin Human Lispro (Humalog Kwikpen ([facility])) 0 unit SC ACHS [facility]; Protocol Last Admin: 04/22/19 16:30 Dose: 6 units Documented by: Linagliptin (Tradjenta) 5 mg PO DAILY [facility] Metformin [facility] Last Admin: 04/22/19 16:31 Dose: 1,000 mg Documented by: Methylprednisolone (Solu-Medrol) 40 mg IV Q8 [facility] Last Admin: 04/22/19 14:44 Dose: 40 mg Documented by: Metoprolol Succinate (Toprol Xl (Beta Lopez)) 25 mg PO DAILY [facility] Nitroglycerin (Nitrostat) 0.4 mg SUBLINGUAL Q5M PRN Pantoprazole Sodium (Protonix) 40 mg PO DAILY [facility] Potassium Chloride (K-Dur) [facility] Last Admin: 04/22/19 16:26 Dose: Not Given Documented by: Sodium Chloride () 10 - 40 ml IV UD PRN PRN Reason: SALINE FLUSH Last Admin: 04/22/19 14:44 Dose: 30 ml Documented by: Assessment/Plan All Active Problems (Last Reviewed 02/22/19 @ 17:53 by Mary Calderón DO) Shortness of breath (Acute) Paresthesia of left arm and leg (Resolved) TIA (transient ischemic attack) (Resolved) ELIZABETH (acute kidney injury) (Resolved) Acute respiratory failure with hypoxia (Resolved) History of mandibular surgery (Resolved) Hypokalemia (Resolved) Hyponatremia (Resolved) #1 acute diastolic congestive heart failure-patient an echocardiogram performed in February 2019 which showed a preserved EF, echocardiogram will not be reordered, patient will be admitted to PCU, placed on IV Lasix, and monitored. #2 acute exacerbation of COPD-patient will be given IV Solu-Medrol and aggressive aerosol treatments #3 acute bacterial bronchitis-patient will have a respiratory panel performed, patient was placed on Zithromax orally #4 chronic hypoxic respiratory failure-patient's pulse ox will be monitored #5 chronic atrial fibrillation #6 noncompliance with medical regimen-patient is currently smoking at home, he was cautioned against this, he is also not taking his Lasix as prescribed, he was cautioned to take his Lasix as prescribed #7 essential hypertension #8 morbid obesity Code Visit Inpatient E&M: 36861 Init Hosp L3
[2019-04-22] MEDS: APIXABAN 5 MG TABLET PO (22:11)
[2019-04-22 23:15] LABS: Bedside Glucose 330 mg/dL (70-110)
[2019-04-22] MEDS: Acetaminophen 325 MG Tablet 650 MG PO (23:23)
[2019-04-23] VITALS (14 sets, daily range): BP systolic 142–169; BP diastolic 72–83; PULSE 84–106; RESP 18–20; TEMP 36.5–37; O2SAT 94
[2019-04-23] MEDS: Insulin Lispro 100 UNIT/ML INSULN.PEN SC ×4 (06:35→21:28)
[2019-04-23 06:40] LABS: Bedside Glucose 297 mg/dL (70-110)
[2019-04-23 07:17] LABS: Anion Gap 4 (5-15); BUN 32 mg/dL (7-18); BUN/Creat Ratio 22.4 RATIO (10-20); Calcium,Total 9.6 mg/dL (8.5-10.1); Chloride 97 mmol/L (98-107); Creatinine, Serum 1.43 mg/dL (0.70-1.30); EST Glomerular Filtration Rate 51 mL/min (>60); Est Glom Filt Rate - Afr Amer 62 mL/min (>60); Estimated Creatinine Clearance 48.27 ml/min; Glucose 310 mg/dL (74-106); Potassium 4.4 mmol/L (3.5-5.1); Sodium Level 134 mmol/L (136-145)
[2019-04-23] MEDS: Ipratropium/Albuterol Sulfate 3 ML AMPUL.NEB INHALATION ×3 (07:55→19:27)
[2019-04-23] MEDS: Metoprolol(XL)Succ 25 MG Tablet PO (09:42)
[2019-04-23] MEDS: Azithromycin 250 MG Tablet 500 MG PO (09:42)
[2019-04-23] MEDS: glipiZIDE XL 5 MG Tablet 10 MG PO (09:42)
[2019-04-23] MEDS: Aspirin 81 MG TAB.CHEW PO (09:42)
[2019-04-23] MEDS: Atorvastatin Calcium 80 MG Tablet PO (09:43)
[2019-04-23] MEDS: Furosemide 40 MG/4 ML Vial IV ×2 (09:43→21:28)
[2019-04-23] MEDS: LINAGLIPTIN 5 MG TABLET PO (09:43)
[2019-04-23] MEDS: metFORMIN HCl 1,000 MG Tablet 1000 MG PO ×2 (09:43→17:10)
[2019-04-23] MEDS: Amiodarone 200 MG Tablet PO (09:44)
[2019-04-23] MEDS: APIXABAN 5 MG TABLET PO ×2 (09:44→21:28)
[2019-04-23] MEDS: Pantoprazole Sodium 40 MG Tablet PO (09:44)
--- NOTE | 2019-04-23 09:55 | CASEMGMT ---
RN FUAD BRASS MOLDER CM to room to meet with patient for initial transition planning/care coordination assessment. ANA MERIDA introduced self and role at [facility]. Pt voices understanding and consents to assessment at this time. Pt sitting up in recliner chair in room in no distress at this time. visiting. Pt is A/O at this time and answers all questions appropriately. Care providers, pharmacy, and demographics verified at this time. PCP: Dr Gonsalo Saenz Specialists: Dr Mendez--cardiology @ [facility], Dr Collado--[facility], Dr Hannah-pulmonology. Preferred Pharmacy: [facility] Insurance: [employer], [facility] Prescription Benefit: Yes Living Will/HPOA: Has both LW and Healthcare POA, who is his , Mary. Copies not found on file @ [facility]. Pt/ aware and. Pt states he would be interested in talking with SW to complete updated paperwork. BLAS Bruno, made aware. Pt/ given Behavioral Therapist Rac card and made aware can make an appt as an out-pt if SW is unable to assist with completing paperwork while pt here this admission. LNOK: , Mary Nayak. Daughter, Taylor Cazares. has other adult children as well. Living Arrangements: Lives with his in 1-story home w/3 steps to enter. States he is usually independent with ADL's. Transportation: Pt states drives self and states no transportation concerns at this time. DME: has the following DME: Handicap shower, cane, nebulizer, and Oxygen through [employer]. States he uses 2 L/M via N/C as needed ad states he has concentrator and portability. His states there is a portable tank in their car for pt to use when he is discharged home. Pt also states he just got a CPAP but has not used it yet. Pt states he is unsure if he is supposed to bleed-in the Oxygen with it. Call placed to [facility] and spoke to Matilda. She confirms pt has Oxygen and current order is for 2 L/M continuously and also 2 L/M bleed-in for CPAP. Pt/ made aware that order is for 2 L/M oxygen bleed-in on the CPAP. They voice understanding. Asked if she could bring in the CPAP for pt to use while @ [facility] and she states she would bring it in. Pt/ state no need for further DME at this time. HHC/SNF: No history of either, denies needs, and no needs identified. Pt wishes to return home and states has no concerns with going home at time of discharge. Pt states he has smoked 1 PPD x 40 years and just recently cut back to 1 Pack/week. CM to follow for home oxygen needs and any further discharge planning/needs. Pt/ voice no further concerns/needs at this time. Advised them to ask for CM if any further questions/concerns/needs arise. They voice understanding. PLAN: Home w/spousal support and discharge plans in place. Follow for any increased Home oxygen needs at discharge. Vicente AGN RN CM
[2019-04-23] MEDS: Acetaminophen 325 MG Tablet 650 MG PO (10:47)
[2019-04-23 12:15] LABS: Bedside Glucose 431 mg/dL (70-110)
--- NOTE | 2019-04-23 13:16 | CASEMGMT ---
Addendum entered by Kiana Solorzano 04/23/19 14:11: SW stopped by and patient said he and his were talking about the documents. He said if SW is still here when his gets here we can do the papers. SW told him to just ask for SW. Kiana JORGE Original Note: Per RN CM patient wanted to re-do his advance directives. SW attempted to stop by patient's room, but he was sleeping. SW will try again later as time allows. Kiana DIAS 3D DESIGNER
--- NOTE | 2019-04-23 15:24 | PN_ITS ---
Patient Problems: Active and Suspected Problems (Last Reviewed 02/22/19 @ 17:53 by Mary Calderón DO) Shortness of breath (Acute) Subjective: Patient was seen and examined today, he still having some expiratory wheezing, patient was positive for RSV-A yesterday on his respiratory panel. Patient is still requiring 2 L via nasal cannula to maintain his pulse ox - Physical Exam Vitals/I&O's: Vital Signs Temp Pulse Resp BP Pulse Ox 97.7 F L 97 18 152/77 H 94 04/23/19 14:04 04/23/19 14:04 04/23/19 14:04 04/23/19 14:04 04/23/19 14:04 Oxygen Flow Rate (L/min) 2 Oxygen Delivery Method Nasal Cannula Weight: 124.5 kg Body Mass Index (BMI) 37.4 Finger Stick Blood Glucose 189 Intake and Output for Last 24 Hours 04/21/19 04/22/19 04/23/19 23:59 23:59 23:59 Intake Total 480 / 480 240 / 240 Output Total 200 / 200 Balance 280 / 280 240 / 240 General: Alert, Oriented x3, Cooperative, No apparent distress, Well developed HEENT: Atraumatic, PERRLA, EOMI, Normocephalic Oral: Moist Mucosa Neck: Supple, Trachea Midline, Thyroid Normal Size and Texture Lungs: Normal air movement, No rales, Rhonchi - Occasional expiratory rhonchi are noted, Wheezes - Scattered expiratory wheezes bilaterally Cardiovascular: No murmurs, PMI Normal, Irregular Rate, No rub noted Abdomen: Bowel Sounds Present, Soft, Non Tender, Non-Distended, Obese Extremities: Capillary Refill Less than 3 Seconds, Edema - Generalized lower leg edema is noted bilaterally, there is stasis dermatitis changes noted over both lower legs Skin: No rashes, No breakdown Musculoskeletal: No Tenderness to Palpation of Joints or Extremities Neurological: Cranial nerves II-XII grossly intact, Neuro grossly intact, Sensory exam intact to light touch and pain Psych/Mental Status: Normal Affect, Appropriate, Alert and oriented to time, place, person, mood and affect Microbiology Past 72 Hours 04/22/19 14:51 Mucosa - Nasopharyngeal Respiratory Panel (PCR) - Final RSV A 04/22/19 09:30 Mucosa - Nasopharyngeal Influenza Types A,B Direct FA (CHRISTIE) - Final Laboratory Results 04/22/19 16:23: POC Glucose 243 H 04/22/19 22:09: POC Glucose 330 H 04/23/19 06:29: POC Glucose 297 H 04/23/19 06:32: Sodium 134 L, Potassium 4.4, Chloride 97 L, Carbon Dioxide 33.0 H, Anion Gap 4 L, BUN 32 H, Creatinine 1.43 H, Estim Creat Clear Calc 48.27, Est GFR (MDRD) Af Amer 62, Est GFR (MDRD) Non-Af 51 L, BUN/Creatinine Ratio 22.4 H, Glucose 310 H, Calcium 9.6 04/23/19 12:07: POC Glucose 431 H Current Medications Acetaminophen (Tylenol) 650 mg PO Q6H PRN PRN PRN Reason: Pain Score 1-3/Temp > 100.7 F Last Admin: 04/23/19 10:47 Dose: 650 mg Documented by: Albuterol Sulfate (Ventolin Aerosols) 2.5 mg INHALATION Q2H PRN PRN PRN Reason: DYSPNEA Albuterol/Ipratropium (Duoneb) 3 ml INHALATION Q6H.RT [facility] Last Admin: 04/23/19 13:54 Dose: 3 ml Documented by: Amiodarone HCl (Cordarone) 200 mg PO DAILY [facility] Last Admin: 04/23/19 09:44 Dose: 200 mg Documented by: Apixaban (Eliquis) 5 mg PO BID [facility] Last Admin: 04/23/19 09:44 Dose: 5 mg Documented by: Aspirin (Aspirin, Baby) 81 mg PO DAILY@0800 [facility] Last Admin: 04/23/19 09:42 Dose: 81 mg Documented by: Atorvastatin Calcium (Lipitor) 80 mg PO DAILY [facility] Last Admin: 04/23/19 09:43 Dose: 80 mg Documented by: Azithromycin (Zithromax) 500 mg PO Q24 [facility] Last Admin: 04/23/19 09:42 Dose: 500 mg Documented by: Furosemide (Lasix) 40 mg IV Q12 [facility] Last Admin: 04/23/19 09:43 Dose: 40 mg Documented by: Glipizide (Glucotrol Xl) 10 mg PO DAILYCM [facility] Last Admin: 04/23/19 09:42 Dose: 10 mg Documented by: Glucagon () 1 mg IM .X1 PRN PRN Reason: Hypoglycemia Dextrose (Dextrose 10%-Water) 250 mls @ 999 mls/hr IV .Q16M PRN; Protocol PRN Reason: HYPOGLYCEMIA Sodium Chloride () 250 mls @ 15 mls/hr IV .[id number] PRN PRN Reason: Saline Flush Insulin Glargine (Lantus (Bk)) 30 units SC DAILY [facility] Last Admin: 04/23/19 09:45 Dose: 30 unit Documented by: Insulin Human Lispro (Humalog Kwikpen ([facility])) 0 unit SC ACHS [facility]; Protocol Last Admin: 04/23/19 12:08 Dose: 16 units Documented by: Linagliptin (Tradjenta) 5 mg PO DAILY [facility] Last Admin: 04/23/19 09:43 Dose: 5 mg Documented by: Metformin HCl (Glucophage) 1,000 mg PO BIDCM [facility] Last Admin: 04/23/19 09:43 Dose: 1,000 mg Documented by: Methylprednisolone (Solu-Medrol) 40 mg IV Q8 [facility] Last Admin: 04/23/19 13:57 Dose: 40 mg Documented by: Metoprolol Succinate (Toprol Xl (Beta Lopez)) 25 mg PO DAILY [facility] Last Admin: 04/23/19 09:42 Dose: 25 mg Documented by: Nitroglycerin (Nitrostat) 0.4 mg SUBLINGUAL Q5M PRN Pantoprazole Sodium (Protonix) 40 mg PO DAILY [facility] Last Admin: 04/23/19 09:44 Dose: 40 mg Documented by: Potassium Chloride (K-Dur) 20 meq PO BIDCM [facility] Last Admin: 04/23/19 09:43 Dose: 20 meq Documented by: Sodium Chloride () 10 - 40 ml IV UD PRN PRN Reason: SALINE FLUSH Last Admin: 04/22/19 22:23 Dose: 20 ml Documented by: Medical Necessity - Tobacco Use Smoking Status: Current every day smoker Tobacco Use: Cigarettes Assessment/Plan All Active Problems (Last Reviewed 02/22/19 @ 17:53 by Mary Calderón DO) Shortness of breath (Acute) Paresthesia of left arm and leg (Resolved) TIA (transient ischemic attack) (Resolved) ELIZABETH (acute kidney injury) (Resolved) Acute respiratory failure with hypoxia (Resolved) History of mandibular surgery (Resolved) Hypokalemia (Resolved) Hyponatremia (Resolved) #1 acute diastolic congestive heart failure-continue IV Lasix #2 acute exacerbation of COPD-continue IV Solu-Medrol and aerosol treatments #3 acute bacterial bronchitis-continue Zithromax #4 chronic hypoxic respiratory failure-patient's pulse ox will be monitored #5 chronic atrial fibrillation #6 noncompliance with medical regimen-patient is currently smoking at home, he was cautioned against this, he is also not taking his Lasix as prescribed, he was cautioned to take his Lasix as prescribed #7 essential hypertension #8 morbid obesity #9 RSV-A tracheobronchitis Code Visit Inpatient E&M: 30212 Subs Hosp L2
[2019-04-23 17:20] LABS: Bedside Glucose 251 mg/dL (70-110)
[2019-04-24] VITALS (7 sets, daily range): BP systolic 145–155; BP diastolic 65–75; PULSE 82–93; RESP 18–20; TEMP 36.3–36.9; O2SAT 92–95
[2019-04-24 00:20] LABS: Bedside Glucose 221 mg/dL (70-110)
[2019-04-24] MEDS: Insulin Lispro 100 UNIT/ML INSULN.PEN SC (06:45)
[2019-04-24 06:55] LABS: Bedside Glucose 294 mg/dL (70-110)
[2019-04-24] MEDS: Ipratropium/Albuterol Sulfate 3 ML AMPUL.NEB INHALATION (07:43)
[2019-04-24] MEDS: 0.9% Saline Lock 10 ML Syringe IV (08:48)
[2019-04-24] MEDS: Furosemide 40 MG/4 ML Vial IV (08:49)
[2019-04-24] MEDS: Azithromycin 250 MG Tablet 500 MG PO (08:52)
[2019-04-24] MEDS: metFORMIN HCl 1,000 MG Tablet 1000 MG PO (08:52)
[2019-04-24] MEDS: Aspirin 81 MG TAB.CHEW PO (08:53)
[2019-04-24] MEDS: Amiodarone 200 MG Tablet PO (08:53)
[2019-04-24] MEDS: Metoprolol(XL)Succ 25 MG Tablet PO (08:53)
[2019-04-24] MEDS: LINAGLIPTIN 5 MG TABLET PO (08:53)
[2019-04-24] MEDS: Pantoprazole Sodium 40 MG Tablet PO (08:53)
[2019-04-24] MEDS: glipiZIDE XL 5 MG Tablet 10 MG PO (08:53)
[2019-04-24] MEDS: APIXABAN 5 MG TABLET PO (08:53)
[2019-04-24] MEDS: Atorvastatin Calcium 80 MG Tablet PO (08:53)
--- NOTE | 2019-04-24 11:49 | DCINST_ITS ---
- Discharge Diagnoses Current Active Problems: Current Active and Chronic Problems (Last Reviewed 02/22/19 @ 17:53 by Mary Calderón DO) Shortness of breath (Acute) You will use the following diet at home:: Calorie/Carbohydrate Controlled (specify 1200, 1400, etc) - 1800 michaela Your food should be the consistency of: Regular Your liquids should be the consistency of: Regular/Thin Discharge Activity: Return to Normal Activity Weight Bearing Status: Full weight bearing Allergies/Adverse Reactions: Allergies No Known Allergies Allergy (Verified 02/04/18 10:44) Medications to take at Discharge Aspirin [Aspirin, Baby] 81 mg PO DAILY@0800 08/30/15 Rosuvastatin Calcium [Crestor] 40 mg PO DAILY 08/30/15 Albuterol Aerosols [Ventolin Aerosols] 2.5 mg INHALATION Q4H PRN PRN 10/15/15 Lansoprazole [Prevacid] 30 mg PO DAILY 12/18/16 fluticasone furoate 100 mcg-vilanterol 25 mcg/dose inhalation powder 1 inh INHALATION Q24H 04/18/17 nitroglycerin 0.4 mg sublingual tablet 0.4 mg SUBLINGUAL Q5-15M PRN 04/18/17 Apixaban [Eliquis] 5 mg PO BID 02/04/18 Amiodarone HCl 200 mg PO DAILY 02/22/19 Glipizide [Glipizide ER] 10 mg PO DAILY 02/22/19 Insulin Degludec [Tresiba Flextouch U-200] 30 units SQ DAILY 02/22/19 Insulin Lispro [Humalog KwikPen] 4 units SQ DAILY PRN 02/22/19 Metoprolol Succinate 25 mg PO DAILY 02/22/19 Sitagliptin Phos/Metformin HCl [Janumet 50-1,000 mg Tablet] 1 tab PO BID 02/22/19 Furosemide [Lasix] 40 mg PO UD #120 tablet 04/24/19 Potassium Chloride 20 meq PO DAILY PRN #1 04/24/19 The following prescriptions were given: Furosemide [Lasix] 40 mg PO UD #120 tablet Potassium Chloride 20 meq PO DAILY PRN #1 PRN Reason: when taking lasix Primary Care Physician: Gonsalo Saenz MD [Primary Care Provider] - Please follow up with your Primary Care Physician in: next week to get a BMP done Test Results: Test results from this visit will be discussed in further detail at your follow- up appointment, if applicable.
[2019-04-24] MEDS: MethylPREDNISolone Acetate 40 MG/ML Vial 80 MG IM (12:15)
--- NOTE | 2019-04-26 13:14 | CASEMGMT ---
NAA MERIDA DC PHONE CALL DC DATE: 04.24.2019 DC Disposition: CHF Diagnosis on Discharge: Home LACE/STRATA: 04.24.2019 Intro role of CM to patient via phone. Pt states he has no questions. Pt abrupt and seemingly did not wish to participate in questions re: gray. RN CM thanked patient for using [facility] and call concluded. Nolvia AGN RN ACM
--- NOTE | 2019-04-26 15:28 | PCM.DC.SUM ---
Discharge Date and Diagnosis Date of Admission: 04/22/19 Date of Discharge: 04/24/19 - Primary Discharge Diagnosis #1 acute diastolic congestive heart failure #2 acute exacerbation of COPD #3 acute bacterial bronchitis #4 chronic hypoxic respiratory failure #5 chronic atrial fibrillation #6 noncompliance with medical regimen #7 essential hypertension #8 morbid obesity #9 RSV-A tracheobronchitis - Secondary Discharge Diagnosis Chronic Problems (Last Reviewed 02/22/19 @ 17:53 by Mary Calderón DO) Carotid stenosis, bilateral (Chronic) Less than 50% bilaterally Venous insufficiency of both lower extremities (Chronic) Morbid obesity (Chronic) Left ventricular hypertrophy (Chronic) Grade III diastolic dysfunction (Chronic) Right ventricular dilation (Chronic) History of angioplasty (Chronic) History of back surgery (Chronic) Tobacco abuse (Chronic) Hypersomnia (Chronic) Pulmonary hypertension, mild (Chronic) COPD (chronic obstructive pulmonary disease) (Chronic) Nephrolithiasis (Chronic) Diabetes (Chronic) CAD (coronary artery disease) (Chronic) HTN (hypertension) (Chronic) Tension headache (Chronic) Hospital Course and Treatment Operations: None Procedures: None Summary of Care Provided: The patient is a 73 year old M who was seen in the emergency room at [facility] with chief complaint of shortness of breath and nonproductive cough. Work-up in the emergency room included a chest x-ray which was negative for pneumonic infiltrate but indicated mild congestive heart failure, chemistry profile was remarkable for BUN of 20 and a glucose of 152, lactic acid was elevated at 2.1, CBC was unremarkable. Patient was admitted to PCU for exacerbation of COPD, congestive heart failure, and bacterial bronchitis. He was given aerosol treatments and IV Solu-Medrol as well as IV Lasix. Patient improved during his hospitalization, respiratory panel was obtained and this was positive for RSV A. On 04/24/2019, patient was seen and examined and felt to be in stable condition for discharge home: On examination he appeared in good health and spirits. Vital signs as documented. Skin warm and dry and without overt rashes. Neck without JVD. Lungs clear. Heart exam notable for regular rhythm, normal sounds and absence of murmurs, rubs or gallops. Abdomen unremarkable and without evidence of organomegaly, masses, or abdominal aortic enlargement. Extremities nonedematous. Neuro: Cranial nerves II through XII are grossly intact, no focal motor deficits were noted, sensation to light touch and pinprick intact. Psych: Patient is alert and oriented x3, he does not appear anxious or depressed - Physical Exam Vitals/I&O's: Vital Signs Temp Pulse Resp BP Pulse Ox 97.4 F L 82 18 155/75 H 92 04/24/19 08:00 04/24/19 08:53 04/24/19 08:00 04/24/19 08:00 04/24/19 08:47 Oxygen Flow Rate (L/min) 2 Oxygen Delivery Method Room Air Weight: 121.79 kg Body Mass Index (BMI) 37.4 Finger Stick Blood Glucose 189 Discharge Activity: Return to Normal Activity Weight Bearing Status: Full weight bearing Home Medications: Medications to take at Discharge Aspirin [Aspirin, Baby] 81 mg PO DAILY@0800 08/30/15 Rosuvastatin Calcium [Crestor] 40 mg PO DAILY 08/30/15 Albuterol Aerosols [Ventolin Aerosols] 2.5 mg INHALATION Q4H PRN PRN 10/15/15 Lansoprazole [Prevacid] 30 mg PO DAILY 12/18/16 fluticasone furoate 100 mcg-vilanterol 25 mcg/dose inhalation powder 1 inh INHALATION Q24H 04/18/17 nitroglycerin 0.4 mg sublingual tablet 0.4 mg SUBLINGUAL Q5-15M PRN 04/18/17 Apixaban [Eliquis] 5 mg PO BID 02/04/18 Amiodarone HCl 200 mg PO DAILY 02/22/19 Glipizide [Glipizide ER] 10 mg PO DAILY 02/22/19 Insulin Degludec [Tresiba Flextouch U-200] 30 units SQ DAILY 02/22/19 Insulin Lispro [Humalog KwikPen] 4 units SQ DAILY PRN 02/22/19 Metoprolol Succinate 25 mg PO DAILY 02/22/19 Sitagliptin Phos/Metformin HCl [Janumet 50-1,000 mg Tablet] 1 tab PO BID 02/22/19 Furosemide [Lasix] 40 mg PO UD #120 tab 04/24/19 Potassium Chloride 20 meq PO DAILY PRN #1 04/24/19 Following Prescrptions Were Given to Patient: Furosemide [Lasix] 40 mg PO UD #120 tab Potassium Chloride 20 meq PO DAILY PRN #1 PRN Reason: when taking lasix Primary Care Physician: Gonsalo Saenz MD [Primary Care Provider] - Please follow up with your Primary Care Physician in: next week to get a BMP done Disposition: Home Minutes spent on discharge:: 32 Patient Condition:: Stable Medical Necessity - Tobacco Use Smoking Status: Current every day smoker Tobacco Use: Cigarettes Meaningful Use Info Meaningful Use Diagnoses (Choose all that apply): CHF - CHF ESPERANZA/ARB ordered at discharge?: No Reason ESPERANZA/ARB not ordered?: Allergy - Not indicated-ejection fraction preserved Documented LVEF (%): 55 Code Visit Inpatient E&M: 08462 Disch Hosp
== END 2019-04-24 12:31 | disposition home or self-care (01) | DRG 291 ==
LOC: ED 10:18 → PCU 12:16
PROVIDERS: Admitting Provider Internal Medicine; Emergency Provider Emergency Medicine; Family Provider Family Medicine; PCP Family Medicine; Visit Provider Internal Medicine
DX: I11.0 Hypertensive heart disease with heart failure (principal); I50.31 Acute diastolic (congestive) heart failure; J44.1 Chronic obstructive pulmonary disease with (acute) exacerbation; I48.20 Chronic atrial fibrillation, unspecified; J96.11 Chronic respiratory failure with hypoxia; J44.0 Chronic obstructive pulmonary disease with (acute) lower respiratory infection; E66.01 Morbid (severe) obesity due to excess calories; J20.5 Acute bronchitis due to respiratory syncytial virus; J20.8 Acute bronchitis due to other specified organisms; Z91.19 Patient's noncompliance with other medical treatment and regimen; E11.9 Type 2 diabetes mellitus without complications; I27.20 Pulmonary hypertension, unspecified; Z68.37 Body mass index [BMI] 37.0-37.9, adult; F17.210 Nicotine dependence, cigarettes, uncomplicated; Z79.4 Long term (current) use of insulin; Z99.81 Dependence on supplemental oxygen; I87.2 Venous insufficiency (chronic) (peripheral); I25.10 Atherosclerotic heart disease of native coronary artery without angina pectoris
CPT/HCPCS: 36415; 71045; 80048; 82962; 83605; 84484; 85025; 87633; 87804; 93005; 94640; 97802; 99251; 99285; 99406; A4216; G0463; J1940

== ENCOUNTER → 2019-05-06 09:00 | Outpatient (CLI) | payer MEDICARE, OTHER, SELFPAY ==
[2019-04-22 14:11] VITALS: BMI 37.4
== END ==
PROVIDERS: Family Provider Family Medicine; PCP Family Medicine; Referring Provider Family Medicine; Visit Provider Family Medicine
DX: Z46.89 Encounter for fitting and adjustment of other specified devices (principal)
CPT/HCPCS: 98960; G0463

== ENCOUNTER → 2019-12-14 13:25 | Outpatient (CLI) | payer MEDICARE, OTHER, SELFPAY ==
[2019-04-22 14:11] VITALS: BMI 37.4
--- NOTE | 2019-12-14 13:29 | CT_ITS ---
STUDY: CT LEFT SHOULDER REASON FOR EXAM: Male, 74 years old. OSTEOARTHRITIS LEFT SHOULDER RADIATION DOSAGE (If Supplied By Facility): CTDIvol = ( 38.54 ) mGy, DLP = ( 1656.16 ) mGycm TECHNIQUE: The patient was scanned in a multi detector CT scanner. High resolution transaxial imaging was performed without the administration of intravenous contrast material. Sagittal and coronal images were reconstructed. Individualized dose optimization techniques were used for this CT. COMPARISON: None. FINDINGS: There is severe osteoarthritis, with severe articular joint space narrowing, osteoarthritic spurring, articular remodeling, and with articular erosions. Normal glenoid rim, neck and visualized scapula. There is evidence of a degenerative spur along the inferior medial aspect of the humeral head as well as degenerative spur along the superior lateral portion. Normal coracoid process. Normal visualized lateral clavicle. There is moderate osteoarthritis with articular joint space narrowing and with osteoarthritic spurring. There is a Type II morphology (curved), with a neutral orientation. Normal visualized muscles and soft tissue structures. CT/Extremity Upper without Contra IMPRESSION: Marked degree of osteoarthritis of the left shoulder with degenerative spurring along the humeral head. Degenerative changes of the acromioclavicular joint. Electronically Signed: Cricket Mortensen, at 14:51 EDT , Service support ,
== END ==
PROVIDERS: PCP Family Medicine; Referring Provider Specialist; Visit Provider Specialist
DX: M19.212 Secondary osteoarthritis, left shoulder (principal)
CPT/HCPCS: 73200

== ENCOUNTER 2020-03-27 13:59 | Emergency (ER) | payer MEDICARE, OTHER, SELFPAY ==
[2019-04-22 14:11] VITALS: BMI 37.4
[2020-03-27 14:00] VITALS: BP 101/55; PULSE 81; RESP 18; TEMP 36.4; O2SAT 94; BMI 37.0
--- NOTE | 2020-03-27 14:24 | EKG12_ITS ---
Test Reason : HYPERTENSION Blood Pressure : / mmHG Vent. Rate : 081 BPM Atrial Rate : 081 BPM P-R Int : 158 ms QRS Dur : 138 ms QT Int : 406 ms P-R-T Axes : 022 -35 -14 degrees QTc Int : 471 ms Normal sinus rhythm Left axis deviation Right bundle branch block Abnormal ECG Confirmed by JOSE KRAUSE, CATINA ([id number]), story editor TERESA FRANCO ([id number]) on 03/29/2020 12:57:05 PM Referred By: JAMEEL Confirmed By:CATINA GARCIA MD
--- NOTE | 2020-03-27 14:31 | ED.VIS.GEN ---
History of Present Illness Chief Complaint: Hypertension Informant: Patient Narrative: Patient is a 74-year-old male who presents to the emergency department for elevated blood pressure reading. He states that it all started last week whenever he was supposed to have his shoulder surgery. The surgery got delayed because preop he was having elevated blood pressure readings and they did not feel comfortable performing the surgery. He was admitted overnight. He has not had any blood pressure medication adjustments for a long time. He states he was asymptomatic whenever he checked his blood pressure this morning as he was just working around the house. After checking it he noticed it was 180 systolic. He started to feel confused and got some abdominal discomfort. Whenever EMS arrived his symptoms did start to resolve and is asymptomatic at time of arrival to the emergency department. He did have a bowel movement which also helped. He did get diaphoretic during the episode. He did not have any chest pain, shortness of breath or heart palpitations. His abdominal pain which was in the lower quadrants is completely resolved. He denies any headache or vision changes. No weakness or loss of sensation in any extremity. No issues with word finding. He denies any recent illness including any fever/chills. Past Medical History - Allergies and Home Meds Allergies/Adverse Reactions: Allergies No Known Allergies Allergy (Verified 03/27/20 14:05) Primary Care Physician: Gonsalo Saenz MD [Primary Care Provider] - 1 Day Prior records reviewed: Yes Surgical History: angioplasty - 3 stents placed Smoking Status: Current every day smoker - Family History Maternal Family History: Family History (Last Reviewed 02/22/19 @ 17:[address] Mary Calderón DO) Mother Heart disease Dementia Father Heart disease Family History: Reports: Dementia Paternal Family History: Family History (Last Reviewed 02/22/19 @ 17:[address] Mary Calderón DO) Mother Heart disease Dementia Father Heart disease Family History: Reports: Heart Disease Review of Systems All systems negative except as indicated General: Reports: Sweats. Denies: Chills, Fever Eyes: Denies: Visual changes - bilaterally, Diplopia ENT: Denies: Rhinorrhea, Sore throat Cardiovascular: Denies: Chest pain, Palpitations Respiratory: Denies: Dyspnea, Cough, Dyspnea on exertion Gastrointestinal: Reports: Abdominal pain. Denies: Nausea, Vomiting, Diarrhea, Melena, Hematochezia Genitourinary: Denies: Dysuria, Hematuria, Frequency Musculoskeletal: Denies: Back pain, Extremity Pain Skin: Denies: Rash, Wounds Neurological: Denies: Headache, Weakness, Numbness Physical Exam Vital Signs/Narrative: Vital Signs Temp Pulse Resp BP Pulse Ox 03/27/20 14:00 97.5 F L 81 18 101/55 L 94 Inital Vital Signs reviewed: Yes General: Well nourished, Well developed, No Acute Distress Head: Normocephalic, Atraumatic Eyes: Perrl, EOMI ENT: Moist mucous membranes, No rhinorrhea Neck: Supple, Nontender Cardiovascular: Regular rate, Regular rhythm, No murmurs Respiratory: No distress, CTA bilaterally, Chest nontender Abdomen: Soft, Nontender, Nondistended, Normal bowel sounds Back: Nontender, Normal Inspection Extremities: Nontender, No edema Skin: Normal color, No rash Neurological: Alert, Oriented x3, Cranial nerves II-XII grossly intact, Normal Strength, Normal Sensation. Negative for: Left side facial droop, Right side facial droop Psychological: Normal affect, Normal Mood Diagnostic/Tx/Re-eval - EKG Initial EKG Interpretation: - - Rate of 81 beats minute and normal sinus rhythm. Has a prolonged QRS with a right bundle branch block. Left axis deviation. Has T wave inversions in lead III and aVF. No significant ST elevations. His prior EKG for comparison was performed on April 222019 with these T wave changes. - Medical Decision Making Patient presents to the ED for elevated blood pressure reading at home. After discovering this he felt like he was feeling confused got sweaty and had some abdominal discomfort. At time of arrival to the emergency department he is feeling much better. Upon arrival to the ED his blood pressure is actually on the low side. He states he did not take any extra medications and just took his regular medications at 8 AM this morning. Physical exam is benign without any acute neurological findings. With the diaphoresis we will check basic lab work and EKG. Low suspicion for CVA or CAD causing his symptoms. Does have anxiety related given the fact after he checked his blood pressure the symptoms started and once EMS arrived they started to improve. Patient's troponin within normal limits. He does have a mildly elevated creatinine compared to his baseline although he does appear to have some kidney injury at baseline. He has been completely asymptomatic throughout ED stay. Blood pressure has been stable. He is agreeable being discharged home. He does have an appointment with his PCP tomorrow. He is to keep this appointment. Warning signs and symptoms which to return to the ED are reviewed. He understands and is agreeable this plan. Patient is discharged home in stable condition. All questions were answered. ED Disposition - Plan for ED Patient: Disposition: Home or Assisted Living Diagnosis: Elevated blood pressure reading, Creatinine elevation, HTN (hypertension) Instructions: ED High Blood Pressure ... Referrals: Gonsalo Saenz MD [Primary Care Provider] - 1 Day
[2020-03-27 14:51] LABS: Absolute Lymphocyte Count 1.25 X10^3/uL (0.83-4.51); Absolute Neutrophil Count 7.1 X10^3/uL (2.0-7.7); Basophil# 0.08 X10^3/uL; Basophil% 0.9 % (0-1); Eosinophil# 0.28 X10^3/uL; Hematocrit 41.1 % (40-54); Hemoglobin 13.5 g/dL (13.0-16.5); Lymphocyte # 1.25 X10^3/ul (4.0); Lymphocyte % 13.3 % (19-41); Mean Corp Hgb Conc 32.8 g/dL (32-36); Mean Corpuscular Hgb 30.6 pg (27.0-32.0); Mean Corpuscular Volume 93.2 fL (80-94); Mean Platelet Vol. 10.4 fl (6.2-12.0); Monocyte% 7.4 % (0-10); NRBC Flagged by Analyzer 0 % (0-5); Neutrophil # 7.05 X10^3/uL (2.7-7.7); Neutrophil % 74.9 % (47-70); Platelet Count 186 K/mm3 (150-450); RBC Distribution Width CV 13.6 % (11.6-14.6); RBC Distribution Width SD 46.8 fl (35.1-43.9); Red Blood Count 4.41 M/mm3 (4.6-6.2); White Blood Count 9.4 K/mm3 (4.4-11.0)
[2020-03-27 14:54] LABS: Anion Gap 5 (5-15); BUN 27 mg/dL (7-18); BUN/Creat Ratio 16.7 RATIO (10-20); Calcium,Total 9.3 mg/dL (8.5-10.1); Chloride 100 mmol/L (98-107); Creatinine, Serum 1.62 mg/dL (0.70-1.30); EST Glomerular Filtration Rate 44 mL/min (>60); Est Glom Filt Rate - Afr Amer 54 mL/min (>60); Glucose 173 mg/dL (74-106); Potassium 4.3 mmol/L (3.5-5.1); Sodium Level 137 mmol/L (136-145)
[2020-03-27 15:02] VITALS: BP 110/81; PULSE 81; RESP 18; O2SAT 95
[2020-03-27 16:24] VITALS: BP 107/65; PULSE 72; RESP 18; O2SAT 96
== END 2020-03-27 16:38 | disposition home or self-care (01) ==
PROVIDERS: Emergency Provider Emergency Medicine; PCP Family Medicine
DX: I10 Essential (primary) hypertension (principal); R79.89 Other specified abnormal findings of blood chemistry; R41.0 Disorientation, unspecified; R10.9 Unspecified abdominal pain; R61 Generalized hyperhidrosis; I45.10 Unspecified right bundle-branch block; Z95.5 Presence of coronary angioplasty implant and graft; Z79.899 Other long term (current) drug therapy; F17.200 Nicotine dependence, unspecified, uncomplicated
CPT/HCPCS: 80048; 84484; 85025; 93005; 99284; A4216

== ENCOUNTER → 2020-08-01 10:58 | Outpatient (CLI) | payer MEDICARE, OTHER, SELFPAY ==
[2020-07-11 07:49] VITALS: BMI 37.8
[2020-08-01 11:55] VITALS: PULSE 66; PULSE 70; PULSE 71; PULSE 84; PULSE 91; PULSE 92; PULSE 93; O2SAT 91; O2SAT 93; O2SAT 94
--- NOTE | 2020-08-01 14:07 | PCM.PSN.6M ---
PSN 6 Minute Walk Test - 6 Minute Walk Test 6 Minute Walk Test: 6 Minute Walk Test PSN:6-Minute Walk Test Start: 08/01/20 11:55 Freq: Status: Active Protocol: RESP.6MINW Document 08/01/20 11:55 [facility] (Rec: 08/01/20 12:00 [facility] [id number]) 6 Minute Walk Test Date Performed 08/01/20 Time Performed 11:15 Height 5 ft 10 in Weight: 117.934 kg Weight in Pounds 260.[address]: Merrick Hannah Assistive device used: None Pre-test Oxygen Delivery Method Room Air Pulse Ox (%) 94 Pulse Rate (60-100 beats/min) 66 Dyspnea Rosaline Scale (0-10) 2 Reported Symptoms Increased Work of Breathing 1st minute Oxygen Delivery Method Room Air Pulse Ox (%) 94 Pulse Rate (60-100 beats/min) 71 Dyspnea Rosaline Scale (0-10) 4 Number of Rests Taken 1 Reported Symptoms Increased Work of Breathing 2nd minute Oxygen Delivery Method Room Air Pulse Ox (%) 93 Pulse Rate (60-100 beats/min) 84 Dyspnea Rosaline Scale (0-10) 4 Number of Rests Taken 1 Reported Symptoms Increased Work of Breathing 3rd minute Oxygen Delivery Method Room Air Pulse Ox (%) 93 Pulse Rate (60-100 beats/min) 91 Dyspnea Rosaline Scale (0-10) 4 Number of Rests Taken 0 Reported Symptoms Increased Work of Breathing 4th minute Oxygen Delivery Method Room Air Pulse Ox (%) 93 Pulse Rate (60-100 beats/min) 93 Dyspnea Rosaline Scale (0-10) 4 Number of Rests Taken 0 Reported Symptoms Increased Work of Breathing 5th minute Oxygen Delivery Method Room Air Pulse Ox (%) 93 Pulse Rate (60-100 beats/min) 92 Dyspnea Rosaline Scale (0-10) 4 Number of Rests Taken 1 Reported Symptoms Increased Work of Breathing 6th minute Oxygen Delivery Method Room Air Pulse Ox (%) 91 Pulse Rate (60-100 beats/min) 92 Dyspnea Rosaline Scale (0-10) 4 Number of Rests Taken 0 Reported Symptoms Increased Work of Breathing Post-test Oxygen Delivery Method Room Air Pulse Ox (%) 94 Pulse Rate (60-100 beats/min) 70 Dyspnea Rosaline Scale (0-10) 2 Reported Symptoms Increased Work of Breathing Full Laps Walked 11 Partial Lap, Number of Tiles Walked 23 Total Distance Walked (ft) 672 - Interpretation Interpretation: The patient was able to ambulate 672 feet over the course of 6 minutes on room air with the assistance of 3 breaks. No assistive devices were used. The patient did have a significant desaturation as low as 91% with a reflexive tachycardia as high as 93 bpm. These findings are consistent with a respiratory limitation exercise tolerance. - Recommendations Recommendations: No supplemental oxygen is indicated at this time. However, patient will need to be followed closely given level of desaturation.
== END ==
PROVIDERS: PCP Family Medicine; Visit Provider Internal Medicine Critical Care Medicine
DX: J44.9 Chronic obstructive pulmonary disease, unspecified (principal); I51.9 Heart disease, unspecified; I27.29 Other secondary pulmonary hypertension
CPT/HCPCS: 94618; 94762

== ENCOUNTER → 2020-08-15 20:35 | Outpatient (CLI) | payer MEDICARE, OTHER, SELFPAY ==
[2020-07-11 07:49] VITALS: BMI 37.8
== END ==
PROVIDERS: PCP Family Medicine; Referring Provider Nurse Practitioner Acute Care; Visit Provider Nurse Practitioner Acute Care
DX: G47.33 Obstructive sleep apnea (adult) (pediatric) (principal)
CPT/HCPCS: 95811

== ENCOUNTER → 2020-08-29 12:05 | Outpatient (CLI) | payer MEDICARE, OTHER, SELFPAY ==
[2020-07-11 07:49] VITALS: BMI 37.8
== END ==
PROVIDERS: PCP Family Medicine; Visit Provider Nurse Practitioner Acute Care
DX: Z46.89 Encounter for fitting and adjustment of other specified devices (principal)

== ENCOUNTER → 2020-10-10 | Outpatient (CLI) | payer MEDICARE, OTHER, SELFPAY ==
[2020-10-10 07:59] VITALS: BMI 37.3
== END | disposition home or self-care (01) ==
PROVIDERS: PCP Family Medicine; Referring Provider Nurse Practitioner Acute Care; Visit Provider Nurse Practitioner Acute Care
DX: J44.9 Chronic obstructive pulmonary disease, unspecified (principal)
CPT/HCPCS: 87070; 87077; 87186; 87205

== ENCOUNTER 2021-06-16 09:43 | Outpatient (CLI) | payer MEDICARE, OTHER, SELFPAY ==
--- NOTE | 2021-06-16 09:47 | CT_ITS ---
HISTORY: SMOKER. TECHNIQUE: Helically acquired images were obtained of the chest without contrast. A radiation dose optimization technique was used for this scan. # of images incl. paperwork: [id number]. COMPARISON: XR 04/22/2019. FINDINGS: LARGE AIRWAYS: Minimal dependent fluid. Grossly patent. LUNGS: Minimal atelectasis and bronchiectasis. 2 mm completely calcified right lower lobe nodule. PLEURA: No pneumothorax or pleural effusion. Mild bilateral fatty pleural thickening. HEART AND PERICARDIUM: Heart within normal limits in size. No pericardial effusion. Coronary artery calcification present. VESSELS: Thoracic aorta nondilated. MEDIASTINUM AND RONI: No enlarged lymph nodes. BONES: Mild degenerative change. CT/Low Dose CT Lung Screening IMPRESSION: No acute abnormality identified in the chest. Small calcified right lower lobe granuloma. Lung-RADS category 1: Negative. Continue annual screening with low-dose CT. Individualized dose optimization techniques were used for this CT. at 1655 Reported and signed by: Luli Panda MD Electronically Signed: Luli Panda MD at 16:54 EST ,
== END 2021-06-16 23:59 | disposition home or self-care (01) ==
LOC: CT 09:46
PROVIDERS: PCP Family Medicine; Referring Provider Nurse Practitioner Acute Care; Visit Provider Nurse Practitioner Acute Care
DX: F17.210 Nicotine dependence, cigarettes, uncomplicated (principal)
CPT/HCPCS: 71271

== ENCOUNTER → 2021-10-31 | Outpatient (CLI) | payer MEDICARE, OTHER, SELFPAY ==
--- NOTE | 2021-10-31 16:45 | RAD_ITS ---
INDICATION: pleural effusion EXAMINATION/TECHNIQUE: X-RAY - XR Chest 2 Views COMPARISON: 04/22/2019. FINDINGS: Increased interstitial markings. Tortuous and calcified thoracic aorta. The heart is mildly enlarged. Small bilateral pleural effusions. No pneumothorax. Degenerative changes of the thoracic spine and shoulders. Partially visualized left shoulder arthroplasty. RAD/Chest PA and Lateral IMPRESSION: Increased interstitial markings may represent edema and/or infection. Small bilateral pleural effusions. Electronically Signed: Loc Rehman MD at 16:59 EDT ,
== END | disposition home or self-care (01) ==
PROVIDERS: PCP Family Medicine; Visit Provider Nurse Practitioner Acute Care
DX: R06.02 Shortness of breath (principal)
CPT/HCPCS: 71046

== ENCOUNTER 2022-02-28 11:00 | Outpatient (RCR) | payer MEDICARE, OTHER, SELFPAY ==
--- NOTE | 2022-01-30 14:36 | HP.PTEVAL_ITS ---
Patient's Visit Information RAY ALONSO is a 76 year old M referred to Physical Therapy by ELDA BATES with a diagnosis of L shoulder pain. Date of Evaluation: 01/30/22 Physical Therapist: Yan Garduno, PT, ATC - Visit Plan Frequency: 2-3x /Week Duration: 4-6 Weeks Plan: L shoulder strengthening (rot cuff), scap stab ex's, UBE, and HEP - Subjective DOS: 09/20/21. Pt reports he had a rev TSA performed at that time. Pt reports he thought he was doing well, but realized that he was still taking his tylenol for pain. Pt reports once he stopped taking the meds, there was a severe pain that showed up. Pt reports this pain radiates down his R UE from the shoulder to the elbow. Pt reports he attempted to get back on the tylenol, but the pain never lessened. Pt reports he had severe pain until 3 days ago. Now pt reports the pain is minimal, and he is scared the PT will aggrivate his shoulder. Pt denies sleep difficulty at this time. Pt denies tingling or numbness in L UE. Pt reports he is R hand dominant. Pt notes when his pain kicks in, he is limited with all IADL's and activities. 0/10 pain at rest, 9/10 pain at worst. - Pain L shoulder Pain Intensity (Out of 10): 0 Pain Intensity Range: 9 - Objective Neuro: B UE sensation is WNL to light touch. B bicipital reflex= 2/3. MMT: R shoulder flex= 14, abd= 26, ER= 21, IR 20; L shoulder flex= 7, abd= 13, ER= 10, IR 11. ROM: R shoulder flex= 150, abd= 120, ER= 0, IR WNL; L shoulder flex= 115, abd= 70, ER= 0, IR WNL - Balance/Special Test Scores Quick DASH Score: 15.9075 - Goals Goal 1:: Decrease L shoulder pain x 50% to aid with sleep Goal Time Frame: 4-6 Weeks Goal 2:: Increase L shoulder strength x 5-10 #F to aid with IADL's Goal Time Frame: 4-6 Weeks Goal 3:: I with HEP Goal Time Frame: 4-6 Weeks - Rehabilitation Potential Physical Therapy Diagnosis: L shoulder weakness, pain, and limited ROM secondary to L rev TSA Rehabilitation Potential: Good - Anticipated Interventions Patient/Client Instruction: Educate patient on: Condition, Plan of Care For the Purpose of:: To improve self management Therapeutic Exercise to Include: Strength training, Endurance training, Active ROM, Scapular Strength/Stabilization For the Purpose of:: To decrease pain, To increase ROM, To improve muscle performance and motor function Thank you for the opportunity to evaluate your patient. For Medicare and Medicare HMO plans, please review the plan of care and approve it. It will need to be FAXED BACK to us at [phone] for Medicare purposes. For Medicare only, by signing this I certify the plan of care. Please let me know if there are questions or concerns regarding this plan of care. Physician Signature: Date:
== END 2022-02-28 19:00 | disposition home or self-care (01) ==
LOC: PT 11:00
PROVIDERS: PCP Family Medicine
DX: M19.012 Primary osteoarthritis, left shoulder (principal)
CPT/HCPCS: 97110; 97161